=== PATIENT | female | born 1935 | race Caucasian/White ===

== ENCOUNTER → 2017-05-01 | Outpatient (CLI) | payer OTHER, BC ==
[~2017-05-01] MED LIST: ALLO100T PO; ATOR10TA82 PO; FURO-85 PO; LISI-725 PO; METO50TA16 PO; OXGN; POTA8CAP6 PO
[2017-05-01 12:19] LABS: BASO % 0.3 %; BASO ABS # 0.03 K/uL (0-0.2); EOS % 2.2 %; HEMATOCRIT 38.8 % (37-47); IG% 0.1 %; LYMPH % 43.5 %; LYMPH ABS # 3.82 K/uL (1.2-3.4); MEAN CELL VOLUME 95.1 fL (80-100); MEAN CORPUSCULAR HEMOGLOBIN 30.9 pg (25-34); MEAN CORPUSCULAR HGB CONC 32.5 g/dl (32-36); MEAN PLATELET VOLUME 11.1 fL (7.4-10.4); MONO % 6.7 %; NEUT % 47.2 %; PLATELET COUNT 213 K/uL (130-400); RED BLOOD COUNT 4.08 M/uL (4.2-5.4); WHITE BLOOD COUNT 8.79 K/uL (4.8-10.8)
[2017-05-01 12:40] LABS: ESTIMATED AVERAGE GLUCOSE 123 mg/dl; HA1C FLAG Normal (Normal)
[2017-05-01 12:43] LABS: COMPLETE YES
[2017-05-01 13:16] LABS: ALB/GLOB RATIO 0.9 (0.9-2); ALKALINE PHOSPHATASE 80 U/L (45-117); ALT/SGPT 21 U/L (12-78); AST/SGOT 17 U/L (15-37); BLOOD UREA NITROGEN 23 mg/dl (7-18); BUN/CREATININE RATIO 20.5 (10-20); CALCIUM 8.9 mg/dl (8.5-10.1); CARBON DIOXIDE 28 mmol/L (21-32); CHLORIDE 108 mmol/L (98-107); GLUCOSE 112 mg/dl (70-99); HDL CHOLESTEROL 40 mg/dl; POTASSIUM 4.4 mmol/L (3.5-5.1); SODIUM 145 mmol/L (136-145)
[2017-05-01 13:17] LABS: CHOLESTEROL 119 mg/dl (0-200); LDL CHOLESTEROL CALCULATED 52 mg/dl; TRIGLYCERIDES 136 mg/dl (0-150); URIC ACID 6.4 mg/dl (2.6-7.2); VERY LOW DENSITY LIPOPROT CALC 27 mg/dl
== END | disposition home or self-care (01) ==
LOC: C.LABBFT 08:36
PROVIDERS: ATTEND Internal Medicine
DX: M10.00 Idiopathic gout, unspecified site (principal); R73.01 Impaired fasting glucose; E78.00 Pure hypercholesterolemia, unspecified

== ENCOUNTER → 2017-10-28 | Outpatient (CLI) | payer OTHER, BC ==
--- NOTE | 2017-10-28 18:31 | DIAGNOSTIC IMAGING REPORT ---
VENOUS DOPP LOWER EXT UNILAT CLINICAL HISTORY: M79.669 Lower leg painPLEASE R/O DVT RIGHT LOWER EXTREMITY E X0D pain. Edema. TECHNIQUE: Venous Doppler COMPARISON STUDY: None FINDINGS: Normal study IMPRESSION: Normal study The above report was generated using voice recognition software. It may contain grammatical, syntax or spelling errors. Electronically signed by: Jake Parker M.D. 10/28/2017 6:29 PM Dictated Date/Time: 10/28/2017 6:29 PM
[2017-10-28 19:23] LABS: ALT/SGPT 25 U/L (12-78); AST/SGOT 18 U/L (15-37); BLOOD UREA NITROGEN 20 mg/dl (7-18); BUN/CREATININE RATIO 17.4 (10-20); CALCIUM 9.2 mg/dl (8.5-10.1); CARBON DIOXIDE 30 mmol/L (21-32); CHLORIDE 104 mmol/L (98-107); CREATININE 1.16 mg/dl (0.60-1.20); GLUCOSE 100 mg/dl (70-99); SODIUM 138 mmol/L (136-145)
[2017-10-28 19:25] LABS: ALB/GLOB RATIO 0.8 (0.9-2); ALKALINE PHOSPHATASE 90 U/L (45-117); CHOLESTEROL 125 mg/dl (0-200); CHOLESTEROL/HDL RATIO 2.7; HDL CHOLESTEROL 46 mg/dl; LDL CHOLESTEROL CALCULATED 49 mg/dl; TRIGLYCERIDES 150 mg/dl (0-150); VERY LOW DENSITY LIPOPROT CALC 30 mg/dl
[2017-10-29 06:48] LABS: ESTIMATED AVERAGE GLUCOSE 120 mg/dl; HA1C FLAG Normal (Normal)
== END | disposition home or self-care (01) ==
LOC: C.ULTR 18:03
PROVIDERS: ATTEND Nurse Practitioner
DX: M79.669 Pain in unspecified lower leg (principal); E78.00 Pure hypercholesterolemia, unspecified; R73.01 Impaired fasting glucose

== ENCOUNTER → 2017-12-22 | Outpatient (CLI) | payer OTHER, BC ==
[~2017-12-22] MED LIST changes: +TRIA37.5 PO
== END | disposition home or self-care (01) ==
LOC: C.PAPS 12:49
PROVIDERS: ATTEND Nurse Practitioner
DX: N95.0 Postmenopausal bleeding (principal)

== ENCOUNTER → 2017-12-22 | Outpatient (CLI) | payer OTHER, BC ==
[~2017-12-22] MED LIST changes: -TRIA37.5 PO
== END | disposition home or self-care (01) ==
LOC: C.LABBFT 10:50
PROVIDERS: ATTEND Internal Medicine
DX: R39.9 Unspecified symptoms and signs involving the genitourinary system (principal)

== ENCOUNTER → 2017-12-24 | Outpatient (CLI) | payer OTHER, BC | END | disposition home or self-care (01) | LOC: C.PATHSPEC 15:59 | PROVIDERS: ATTEND Obstetrics & Gynecology | DX: N95.0 Postmenopausal bleeding (principal); R89.7 Abnormal histological findings in specimens from other organs, systems and tissues ==

== ENCOUNTER → 2017-12-24 | Outpatient (CLI) | payer OTHER, BC ==
[2017-12-24 13:11] LABS: BASO % 0.5 %; BASO ABS # 0.05 K/uL (0-0.2); EOS % 1.7 %; EOS ABS # 0.18 K/uL (0-0.5); HEMATOCRIT 38.1 % (37-47); HEMOGLOBIN 12.4 g/dL (12.0-16.0); IG# 0.03 K/uL (0.00-0.02); LYMPH % 32.2 %; LYMPH ABS # 3.45 K/uL (1.2-3.4); MEAN CELL VOLUME 96.2 fL (80-100); MEAN CORPUSCULAR HEMOGLOBIN 31.3 pg (25-34); MEAN CORPUSCULAR HGB CONC 32.5 g/dl (32-36); MEAN PLATELET VOLUME 11.1 fL (7.4-10.4); MONO % 4.7 %; NEUT % 60.6 %; NEUT ABS # 6.52 K/uL (1.4-6.5); PLATELET COUNT 233 K/uL (130-400); RED CELL DISTRIBUTION WIDTH CV 13.9 % (11.5-14.5); RED CELL DISTRIBUTION WIDTH SD 48.1 fL (36.4-46.3); WHITE BLOOD COUNT 10.73 K/uL (4.8-10.8)
== END | disposition home or self-care (01) ==
LOC: C.LABBFT 08:56
PROVIDERS: ATTEND Nurse Practitioner
DX: N95.0 Postmenopausal bleeding (principal)

== ENCOUNTER → 2017-12-31 | Outpatient (CLI) | payer OTHER, BC ==
[~2017-12-31] MED LIST changes: +TRIA37.5 PO
--- NOTE | 2017-12-31 11:38 | DIAGNOSTIC IMAGING REPORT ---
EXAMINATION: PELVIC ULTRASOUND CLINICAL HISTORY: N95.0 Postmenopausal vaginal [id number] COMPARISON STUDY: None FINDINGS: The uterus measured 5.3 x 4.1 x 7.3 cm.. Multiple complex nabothian gland cysts were visualized. The endometrial stripe measured was thickened measuring 2.5 cm.. Neither ovary was visualized. There was no evidence of pathologic free pelvic fluid. Endovaginal imaging was limited due to patient discomfort. IMPRESSION: 1. Abnormally thickened endometrium measuring 2.5 cm 2. Nonvisualization of the ovaries Electronically signed by: Jasiel Estes M.D. 12/31/2017 11:37 AM Dictated Date/Time: 12/31/2017 11:35 AM
--- NOTE | 2018-01-05 10:10 | DIAGNOSTIC IMAGING REPORT ---
EXAMINATION: PELVIC ULTRASOUND CLINICAL HISTORY: N95.0 Postmenopausal vaginal [id number] COMPARISON STUDY: None FINDINGS: The uterus measured 5.3 x 4.1 x 7.3 cm.. Multiple complex nabothian gland cysts were visualized. The endometrial stripe measured was thickened measuring 2.5 cm.. Neither ovary was visualized. There was no evidence of pathologic free pelvic fluid. Endovaginal imaging was limited due to patient discomfort. IMPRESSION: 1. Abnormally thickened endometrium measuring 2.5 cm 2. Nonvisualization of the ovaries Electronically signed by: Jasiel Estes M.D. 12/31/2017 11:37 AM Dictated Date/Time: 12/31/2017 11:35 AM
== END | disposition home or self-care (01) ==
LOC: C.ULTR 10:57
PROVIDERS: ATTEND Nurse Practitioner
DX: N95.0 Postmenopausal bleeding (principal); R93.8 Abnormal findings on diagnostic imaging of other specified body structures

== ENCOUNTER → 2018-01-12 | Outpatient (CLI) | payer OTHER, BC ==
[~2018-01-12] MED LIST changes: -OXGN
--- NOTE | 2018-01-12 12:05 | DIAGNOSTIC IMAGING REPORT ---
CHEST 2 VIEWS ROUTINE CLINICAL HISTORY: PRE OP COMPARISON STUDY: 08/23/2016 FINDINGS: The heart is mildly enlarged. There is no failure. There is no focal pulmonary consolidation. There are no pleural effusions.[ IMPRESSION: Mild cardiomegaly. No acute findings Electronically signed by: Jasiel Estes M.D. 01/12/2018 12:04 PM Dictated Date/Time: 01/12/2018 12:03 PM
== END | disposition home or self-care (01) ==
LOC: C.RAD1850 11:43
PROVIDERS: ATTEND Obstetrics & Gynecology
DX: Z01.818 Encounter for other preprocedural examination (principal)

== ENCOUNTER → 2018-01-21 | Day surgery (SDC) | payer OTHER, BC ==
[2018-01-06 10:01] VITALS: Ht 162.6 cm; Wt 95.5 kg
--- NOTE | 2018-01-15 13:25 | PAT Medication Instructions ---
Service Date Jan 15, 2018. Current Home Medication List Allopurinol (Zyloprim), 100 MG PO QAM Atorvastatin (Lipitor), 10 MG PO QPM Furosemide (Lasix), 0.5 TAB PO DAILY PRN for FLUID RETENTION Lisinopril (Zestril), 20 MG PO QAM Metoprolol Tartrate (Lopressor) (Lopressor), 50 MG PO BID Potassium Chloride (Klor-Con Ext Rel), 8 MEQ PO QAM Triamterene/Hctz (Dyazide 37.5MG/25MG), 1 TAB PO QAM Medication Instructions For Your Scheduled Surgery - Hold the following medications the morning of surgery: Furosemide (Lasix), 0.5 TAB PO DAILY PRN for FLUID RETENTION Lisinopril (Zestril), 20 MG PO QAM Potassium Chloride (Klor-Con Ext Rel), 8 MEQ PO QAM Triamterene/Hctz (Dyazide 37.5MG/25MG), 1 TAB PO QAM - Take the following medications the morning of surgery with a sip of water: Metoprolol Tartrate (Lopressor) (Lopressor), 50 MG PO BID Allopurinol (Zyloprim), 100 MG PO QAM - Take the following medications as scheduled the night before surgery: Metoprolol Tartrate (Lopressor) (Lopressor), 50 MG PO BID Furosemide (Lasix), 0.5 TAB PO DAILY PRN for FLUID RETENTION (if needed) Atorvastatin (Lipitor), 10 MG PO QPM If you have any questions please call us at [phone] or [phone] or [phone]
[2018-01-15 15:32] LABS: CREATININE 1.06 mg/dl (0.60-1.20)
--- NOTE | 2018-01-19 08:56 | HISTORY & PHYSICAL EXAMINATION ---
DATE OF ADMISSION: 01/21/2018 CHIEF COMPLAINT: Postmenopausal bleeding. HISTORY OF PRESENT ILLNESS: The patient is an 82-year-old white female, para 3, who has been having bleeding on and off since 12/21/2017. She also reports some pelvic cramping. Pap smear done on 12/22/2017 was negative. The patient was menopausal at age 41. She had an ultrasound done, which showed a thick endometrial lining of 25 mm. Ovaries could not be visualized. An endometrial biopsy was attempted, but the pipelle could only be inserted 3-4 cm. What tissue that was obtained showed an atypical endometrial proliferation and there is a question of possible high-grade endometrial carcinoma. The patient is now for hysteroscopy and D&C. PAST MEDICAL HISTORY: ALLERGIES: No known drug allergies. MEDICATIONS: The patient takes allopurinol 100 mg 1 tablet daily, atorvastatin 10 mg daily, furosemide 20 mg tablet she is to take 1/2 tablet daily as needed for edema, Klor-Con 8 mEq extended release every other day, lisinopril 20 mg daily, metoprolol 50 mg 1 tablet twice a day, and triamterene/HCTZ 37.5/25 mg 1 capsule daily. ILLNESSES: The patient has a history of atypical chest pain, although has been recently evaluated and felt stable for the procedure. She has a history of esophageal reflux, hypercholesterolemia, hypertension, mitral regurgitation, nephrolithiasis and lichen sclerosus. PAST SURGICAL HISTORY: She has undergone a recent laparoscopic cholecystectomy. She also has a history of tubal ligation and kidney surgery. FAMILY HISTORY: She reports that her mother had cervical cancer. Her father had tetanus. Her brother had coronary artery disease. In addition, there is a family history of breast cancer. SOCIAL HISTORY: The patient is . She was never a smoker. She denies using alcohol. PHYSICAL EXAMINATION: VITAL SIGNS: Height 5 feet 1-1/4 inches, weight 210 pounds, giving her a BMI of 39.45. Blood pressure 130/68. HEENT: Grossly within normal limits. NECK: Supple without masses. HEART: Regular rate and rhythm. No murmurs, gallops or rubs audible. CHEST: Her lungs are clear. No wheezing. ABDOMEN: Soft and nontender with no abdominal masses and no hepatosplenomegaly. PELVIC: External genitalia, there was a rash in the right inguinal area. Labia were normal. Bartholin glands were normal. The vagina was pink and smooth. There was some moderate vaginal bleeding present. The cervix appeared normal. Uterus was hard to evaluate due to the patient's habitus. EXTREMITIES: No cyanosis, clubbing or edema. IMPRESSION: An 82-year-old white female with post-menopausal bleeding. Abnormal ultrasound, showing endometrial thickening of 25 mm. Endometrial biopsy concerning for possible carcinoma. PLAN: The patient is for hysteroscopy, dilation of the cervix and curettage with possible removal of polyp/lesion. The patient is aware of the risks of infection, bleeding, perforation of the uterus which could require additional surgery or treatment, hospitalization and risk of anesthesia. She is aware of the option of doing nothing, which is not recommended. The patient wishes to proceed with the above procedure. MARY JO
[~2018-01-21] VITALS: Ht 162.6 cm; Wt 95.5 kg
[~2018-01-21] MED LIST changes: +ACETAMINOPHEN 325 MG TAB PO PRN; +ATROPINE SULFATE 0.1 MG/ML 5ML SYR IV PRN; +DEXAMETHASONE SOD INJ 4 MG/ML VIAL ONE; +FENTANYL CITRATE INJ 50 MCG/1 ML 2 ML VIAL IV PRN; +FENTANYL CITRATE INJ 50 MCG/1 ML 2 ML VIAL ONE; +IBUPROFEN 600 MG TAB PO PRN; +KETOROLAC TROMETHAMINE 30 MG/ML VIAL IV. PRN; +LABETALOL HCL IV 5 MG/ML 20ML IV PRN; +LACTATED RINGER'S 1000ML 1,000 ML IV SCH; +LIDOCAINE HCL 2% 2 ML VIAL (20MG/ML) ONE; +MIDAZOLAM HCL 1 MG/ML 2ML VIAL ONE; +ONDANSETRON INJ 2 MG/ML 2 ML VIAL IV PRN; +ONDANSETRON INJ 2 MG/ML 2 ML VIAL ONE; +PROPOFOL IV EMULSION 10 MG/ML 20 ML VIAL IV ONE; +SODIUM CHLORIDE 0.9% 1000ML 1,000 ML IV SCH
--- NOTE | 2018-01-21 07:38 | History & Physical Bridge - SC ---
H&P Re-Evaluation Bridge Note: I have examined the patient, reviewed the History & Physical and in the interval since the performance of the History & Physical I have noted the following changes of clinical significance: No changes noted
--- NOTE | 2018-01-21 12:41 | [facility] Post Operative Brief Note ---
Immediate Operative Summary Operative Date Jan 21, 2018. Pre-Operative Diagnosis Post menopausal vaginal bleeding Post-Operative Diagnosis Same Procedure(s) Performed Dilatation And Curettage, Hysteroscopy, Removal of Endometrial Mass Surgeon Dr. Dodson Electric Milkers Installer Surgeon(s) None Estimated Blood Loss 25ml Findings Consistent with Post-Op Diagnosis Specimens A. Endocervical Curettings B. Endometrial Curettings C. Endometrial Mass Anesthesia Type General Complication(s) none Disposition Accompanied Pt To Recovery: yes Disposition: Recovery Room / PACU
--- NOTE | 2018-01-21 12:51 | Discharge Instructions-SurgCtr ---
Discharge Instructions Date of Service Jan 21, 2018. Visit Reason for Visit: Post Menopausal Vaginal Bleeding Discharge Discharge Diagnosis / Problem: S/P Hysteroscopy, D&C, removal of endometrial mass Discharge Goals Goal(s): Diagnostic testing, Therapeutic intervention Activity Recommendations Activity Limitations: resume your previous activity ACTIVITY RECOMMENDATIONS: * Avoid tampons, douching, hot tubs, pools, and intercourse until bleeding has stopped. * May shower as usual. * No strenuous activity for 24-48 hours. After 24-48 hours, you may do anything you feel like doing (driving and sports are okay). SPECIAL CARE INSTRUCTIONS: Special Diet: * Mild nausea may occur in the immediate post-operative period. * Take clear liquids such as tea, cola or bouillon until all nausea has subsided; you may then resume your normal diet. Special Care: * Light bleeding and vaginal spotting can last from a few days to 3-4 weeks. Call your doctor if bleeding becomes heavier than the heaviest part of your period. * Check your temperature twice a day for one week. If it goes above 100.4 degrees Fahrenheit (38.0 Celsius), notify your doctor. * Call your doctor's office for an appointment for 2-4 weeks after your surgery. Call if you develop a foul smelling vaginal discharge or severe cramping. [phone] FOLLOW-UP VISIT: Call your doctor's office for an appointment for 2-4 weeks after your surgery. [phone] Dr Dodson Anesthesia . Post Anesthesia Instructions: If you have had General Anesthesia or IV Sedation: * Do not drive today. * Resume driving when surgeon permits. * Do not make important decisions or sign legal documents today. * Call surgeon for: 1. Temperature elevations greater than 101 degrees F. 2. Uncontrollable pain. 3. Excessive bleeding. 4. Persistent nausea and vomiting. 5. Medication intolerance (nausea, vomiting or rash). * For nausea and vomiting use only clear liquids such as: tea, soda, bouillon until nausea subsides, then gradually increase diet as tolerated. * If you have any concerns or questions, call your surgeon's office. If physician is unavailable and it is an emergency, call 911 or go to the nearest emergency room. . Diet Recommendations Home Diet: resume previous diet Procedures Procedures Performed: Dilatation And Curettage, Hysteroscopy, Removal of Endometrial Mass Pending Studies Studies pending at discharge: yes List of pending studies: The tissue removed from the uterus will be sent to pathology. We will call you with the report sometime in the next few days or week. Medical Emergencies . Who to Call and When: Medical Emergencies: If at any time you feel your situation is an emergency, please call 911 immediately. . Non-Emergent Contact Non-Emergency issues call your: Filbert Grower Call Non-Emergent contact if: temperature is above 100.5, your pain is worsening . . "Provider Documentation" section prepared by Judy Dodson. .
[2018-01-21 13:58] VITALS: BP 149/74; PULSE 63; O2SAT 95
--- NOTE | 2018-01-21 13:58 | Anesthesia Progress Nt - [facility] ---
Anesthesia Post Op Note Date & Time Jan 21, 2018 at 13:58 Vital Signs Pain Intensity: 3 Vital Signs Past 12 Hours Date Time Temp Pulse Resp B/P (MAP) Pulse Ox O2 Delivery O2 Flow Rate FiO2 01/21/18 13:39 36.6 66 20 143/75 (97) 95 Room Air 01/21/18 13:32 36.6 62 20 127/67 (67) 95 Room Air Mask 01/21/18 13:27 63 19 01/21/18 13:27 64 19 150/64 94 01/21/18 13:22 68 16 137/53 95 01/21/18 13:22 67 16 01/21/18 13:17 60 14 01/21/18 13:17 59 14 99 01/21/18 13:16 155/73 01/21/18 13:12 65 12 01/21/18 13:12 66 12 99 01/21/18 13:11 61 9 144/68 99 01/21/18 13:11 62 9 01/21/18 13:06 60 8 01/21/18 13:06 60 8 148/66 99 01/21/18 13:01 64 10 01/21/18 13:01 63 10 148/68 99 01/21/18 12:56 60 11 146/77 98 01/21/18 12:56 59 11 01/21/18 12:51 59 11 01/21/18 12:51 58 11 140/62 98 01/21/18 12:47 131/60 01/21/18 12:46 36.4 62 16 131/60 98 Mask 8 01/21/18 10:57 36.5 76 20 180/91 (120) 97 Room Air Notes Mental Status: alert / awake / arousable, participated in evaluation Pt Amnestic to Procedure: Yes Nausea / Vomiting: adequately controlled Pain: adequately controlled Airway Patency, RR, SpO2: stable & adequate BP & HR: stable & adequate Hydration State: stable & adequate Anesthetic Complications: no major complications apparent
--- NOTE | 2018-01-21 14:38 | OPERATIVE REPORT ---
DATE OF OPERATION: 01/21/2018 PREOPERATIVE DIAGNOSIS: Postmenopausal vaginal bleeding. PROCEDURE: Hysteroscopy, D&C, and removal of endometrial mass. SURGEON: Judy Dodson MD ANESTHESIA: General. RESEARCH NUTRITIONIST: Tristian Hilario MD DESCRIPTION OF PROCEDURE: The patient was taken to the operating room where general anesthesia was administered. After an adequate level was obtained, she was placed in dorsal lithotomy position. Vulva, vagina, and cervix were prepped with Betadine solution. The patient was draped. The bladder was drained with a straight catheter. 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 The diverticulum is approximately 1-2 cm in size. An Allis clamp was then used to grasp the anterior lip of the cervix. Endocervical curettings were obtained. There was tissue within these curettings. The uterus sounded to 9.5 cm. The cervix was serially dilated up to a #15. Hysteroscope was introduced into the endometrial cavity. There were multiple whitish masses. Photos were taken. Hysteroscope was removed. Polyp forceps was used to remove some of this soft whitish tissue. In addition, a much larger piece of pink and purplish red tissue was removed and this was sent separately to Pathology. The endometrial cavity was then curetted with a serrated curette. A [id number] amount of tissue was obtained. Hysteroscope was used once more to visualize the endometrial cavity and most of the tissue within the cavity had been removed. Polyp forceps was used once more and some additional small bits of tissue obtained. Endometrial curettings were sent to Pathology. At this point, the procedure was ended. Estimated blood loss 25 mL. The patient tolerated the procedure well and was taken to the recovery room in good condition. It should be noted that bimanual exam prior to the procedure revealed an anterior top normal size uterus. There were no adnexal masses. I attest to the content of the Intraoperative Record and any orders documented therein. Any exceptions are noted below. MTDD
== END | disposition home or self-care (01) ==
LOC: X.SURG 10:44
PROVIDERS: ATTEND Obstetrics & Gynecology
DX: N95.0 Postmenopausal bleeding (principal); N72 Inflammatory disease of cervix uteri; N84.0 Polyp of corpus uteri; I10 Essential (primary) hypertension; E78.00 Pure hypercholesterolemia, unspecified; Z98.890 Other specified postprocedural states; E66.9 Obesity, unspecified; Z68.39 Body mass index [BMI] 39.0-39.9, adult; Z98.51 Tubal ligation status; Z79.899 Other long term (current) drug therapy; M19.90 Unspecified osteoarthritis, unspecified site; Z87.2 Personal history of diseases of the skin and subcutaneous tissue; Z90.49 Acquired absence of other specified parts of digestive tract; Z82.49 Family history of ischemic heart disease and other diseases of the circulatory system; Z80.49 Family history of malignant neoplasm of other genital organs

== ENCOUNTER 2020-01-29 23:10 | Inpatient (IN) ==
[2020-01-29] MEDS ORDERED: dilTIAZem HCl 5 MG/ML 5 ML VIAL IV ONE (23:24)
[2020-01-29] MEDS ORDERED: ASPIRIN CHEW 324 MG PO STA (23:25)
[2020-01-29] MEDS ORDERED: dilTIAZem HCl 5 MG/ML 5 ML VIAL IV STA (23:25)
[2020-01-29] MEDS ORDERED: STAT IV Infusion **Titration per Protocol STA (23:26)
[2020-01-29] MEDS ORDERED: dilTIAZem HCL 125 MG in DEXTROSE 5% 100 ML IV SCH (23:30)
[2020-01-29] MEDS ORDERED: SODIUM CHLORIDE 0.9% 500 ML IV SCH (23:30)
[2020-01-29 23:42] LABS: Hemoglobin 12.3 g/dL (12.0-16.0); Mean Corpuscular Hemoglobin 30.2 pg (25-34); Mean Corpuscular Hgb Conc 31.5 g/dL (32-36); Mean Corpuscular Volume 95.8 fL (80-100); Mean Platelet Volume 10.5 fL (7.4-10.4); Platelet Count 220 K/uL (130-400); RDW Coefficient of Variation 15.8 % (11.5-14.5); RDW Standard Deviation 55.1 fL (36.4-46.3); Red Blood Count 4.07 M/uL (4.2-5.4); White Blood Count 11.82 K/uL (4.8-10.8)
[2020-01-29 23:51] LABS: iSTAT Creatinine 1.2 mg/dl (0.6-1.3); iSTAT Hemoglobin 12.6 g/dl (12.0-16.0); iSTAT Ionized Calcium 1.23 mmol/l (1.12-1.32); iSTAT Potassium 3.8 mmol/L (3.3-5.0)
--- NOTE | 2020-01-29 23:51 | History & Physical Report ---
Date of Service January 29, 2020 Assessment & Plan (1) Atrial fibrillation with RVR: Ms. Aaliyah Leiva is a generally healthy 84 year old woman with a past medical history significant for HTN, HLD, and gout who is here today for new onset atrial fibrillation Atrial fibrillation new onset at around 10 pm tonight, converted spontaneously in emergency department CHADSVASC of 4 or 5, will start on anticoagulation for paroxysmal atrial fibrillation Eliquis 2.5 mg BID which is also what her is taking for his a fib Already on metoprolol, will increase from 50 to 100 mg BID from 50 to try to get better rate control, patient tachycardic in sinus rhythm and hypertensive, will need to make sure she can tolerate the higher dose of metoprolol during admission Discussed disease and pros cons of these medications at length with patient and her . TTE ordered for am, patient may also have component of CHF based on enlarged heart size on imaging, and chronic lower limb swelling TSH ordered for am Initial troponin negative, will get another one in six hours If patient goes into RVR again tonight we will attempt to use IV metoprolol pushes HTN Increased metoprolol to 100 mg BID. will also continue triamterene HCTZ and lisinopril 20 mg Currently hypertensive 179/ 71and heart rate around 100 Advised on symptoms of hypotension HLD Continuing atorvastatin 10 mg daily Gout Continuing allopurinol Dispo: Admit to telemetry on increased dose of beta shara and eliquis for ant icoagulation with continuous cardiac monitoring F/E/N: Heart healthy diet DVT PPx: Eliquis (2) Impaired fasting glucose: (3) Hyperlipidemia: (4) Hypertension: History of Present Illness Chief Complaint: Atrial Fibrillation Primary Care Provider: Scott Kessler MD Aaliyah Leiva is an 84 year old woman with a past medical history significant for HTN, HLD, and gout. She is here today for heart palpitations and some associated mild shortness of breath. This started around 10 pm tonight, and felt like her heart was booming and racing. She has never had anything like this in the past. She was recently ill with back to back URI illnesses starting in November, but has completely recovered from those other than being a little quicker to tire since being sick. No shortness of breath, no cough, no chest pain, no nausea, vomiting, abdominal pain, diaphoresis, syncope or presyncope. She presented to the emergency department where she was found to be in atrial fibrillation with a rate as high as 147, Her blood pressure remained hypertensive throughout. Troponin negative EKG not showing any acute ST segment changes. CXR showing enlarged heart CTA showing no pulmonary emboli. Patient converted to sinus rhythm in ED before receiving any medical therapy. Her rates have been around 100 bpm in sinus rhythm. She denies shortness of breath at this time. Allergies Allergy/AdvReac Type Severity Reaction Status Date / Time No Known Allergies Allergy Verified 01/29/20 23:44 Home Medications Home Medications Medication Instructions Recorded Confirmed Type metoprolol tartrate 50 mg tablet 50 mg PO BID #180 tab 08/16/19 01/29/20 Rx triamterene 37.5 1 cap PO DAILY #90 cap 10/25/19 01/29/20 Rx mg-hydrochlorothiazide 25 mg capsule atorvastatin 10 mg tablet 10 mg PO DAILY #90 tab 11/02/19 01/29/20 Rx lisinopril 20 mg tablet 20 mg PO DAILY #90 tab 11/02/19 01/29/20 Rx cyanocobalamin (vitamin B-12) 1,000 mcg PO DAILY tab 11/21/19 01/29/20 History 1,000 mcg tablet potassium chloride 8 mEq 8 meq PO DAILY #30 tab 12/13/19 01/29/20 Rx tablet,extended release allopurinol 100 mg tablet 100 mg PO DAILY #30 tab 01/19/20 01/29/20 Rx ergocalciferol (vitamin D2) 50,000 units PO WK 01/29/20 01/29/20 History fluticasone propionate [Flonase 2 sprays INTNAS DAILY PRN 01/29/20 01/29/20 History Allergy Relief] furosemide 10 mg PO DAILY PRN 01/29/20 01/29/20 History Past Med/Surg History Medical History Cyst of breast Lichen sclerosus et atrophicus Nephrolithiasis Surgical History H/O colonoscopy History of kidney surgery S/P cholecystectomy S/P tubal ligation Family History Aunt Breast cancer maternal Grandmother (Maternal) Breast cancer Mother Cervical cancer Varicose veins of both lower extremities Brother Coronary heart disease Father Tetanus Denies family history of Ovarian cancer Prostate cancer Colorectal cancer Social History Preferred Language: Kinyarwanda Communication Ability: Effective Hearing Ability: Normal Brass Sorter Required: No Beliefs That Will Affect Care: None marital status: Current Living Situation: Spouse current occupational status: retired Other Information That Helps Us Care for You: No Feels Safe at Home: Yes Safety Concerns: Feels Safe At This Time Smoking Status: Never smoker Hx Alcohol Use: No Hx Substance Use: No Physical Activity Frequency: Does not Exercise Seatbelt Use: always Sunscreen Use: Yes Review of Systems Constitutional: no fever, no chills and no body aches Eyes: no problem reported Ear, Nose, Mouth, Throat: no problem reported Respiratory: + dyspnea on exertion; no cough, no dyspnea and no wheezing Cardiovascular: + palpitations; no chest pain, no dyspnea, no lightheadedness, no syncope and no calf pain Gastrointestinal: no abdominal pain, no nausea, no vomiting, no constipation, no diarrhea/loose stools, no blood in stools and no melena Physical Exam Constitutional: well developed and well nourished; no acute distress and not ill appearing Eyes: PERRL, conjunctivae normal, anicteric sclerae ENMT: external ear and nose normal, oropharynx normal Neck: trachea midline, no thyromegaly Respiratory: normal respiratory effort, lungs clear to auscultation Auscultation: no crackles, no rales, no rhonchi and no wheezes Cardiovascular: Rate/Rhythm: regular rate and regular rhythm Heart Sounds: normal S1 and normal S2; no murmur and no cardiac rub Vessels: normal peripheral pulses Extremities: + pedal edema; no calf tenderness Gastrointestinal (Abdomen): normal bowel sounds, soft, nontender, no hepatosplenomegaly Skin: no rashes, warm and dry Results & Data Vital Signs (Past 12 Hours) Vital Signs Temp Pulse Resp BP Pulse Ox 01/29/20 23:15 36.5 C 147 H 18 161/81 H 96 Supervising Physician Co-Signing Physician Notes Patient seen and examined, chart reviewed, case discussed with Dr. Bazan and I agree with his assessment and plan as documented above. Briefly, patient is a pleasant 84yo C female presenting with AF with RVR. Converted to NSR after IV Diltiazem administered in ER. No history of prior arrhythmia. No CP/SOB or evidence of failure. On exam she is afebrile, HTN, ST on monitor at 100bpm, NAD Skin - intact HEENT - NC/AT, PERRL, EOMI, MMM, No JVD Heart - +S1/S2, regular, no m/r/g Lungs - CTA Abd - +BS, soft NT/ND Ext - chronic edema equal bilaterally Labs and images reviewed Assessment/Plan - 84yo C female with history of HTN/HLP presenting with AF with RVR, converted to NSR after IV Diltiazem -Electrolytes WNL, awaiting TSH and 2D echo -Increase PO Metoprolol as above -Eliquis for anticoagulation -Remainder of plan as above Resident Activity Tracking Resident Involvement: Resident Care Provided Care Provided: Adult Hospital Medicine
[2020-01-29 23:59] LABS: INR 1.1 (0.9-1.1); Partial Thromboplastin Ratio 0.9; Partial Thromboplastin Time 24.8 Seconds (21.0-31.0); Prothrombin Time 11.4 Seconds (9.0-12.0)
[2020-01-29] MEDS ORDERED: OPTIRAY 320 125ml IV PRN (23:59)
[2020-01-30] LABS: BUN Creatinine Ratio 18.2 (10-20); Blood Urea Nitrogen 22 mg/dl (7-18); Calcium 9.5 mg/dl (8.5-10.1); Carbon Dioxide 27 mmol/L (21-32); Chloride 107 mmol/L (98-107); Creatinine Clr Calc Pharmacy 39.6 ml/min; Est GFR (African American) 48.9; Est GFR (Non-African American) 42.2; Glucose 126 mg/dl (70-99); Lipase 204 U/L (73-393); Magnesium 1.9 mg/dl (1.8-2.4); Potassium 3.8 mmol/L (3.5-5.1); Sodium 141 mmol/L (136-145)
[2020-01-30 00:05] LABS: Troponin I < 0.015 ng/ml (0-0.045)
[2020-01-30 00:41] LABS: Basophils # (auto) 0.04 K/uL (0-0.2); Basophils % (auto) 0.3 %; Eosinophils # (auto) 0.17 K/uL (0-0.5); Eosinophils % (auto) 1.4 %; Immature Granulocytes # (auto) 0.03 K/uL (0.00-0.02); Immature Granulocytes % (auto) 0.3 %; Lymphocytes % (auto) 42.3 %; Monocytes # (auto) 0.87 K/uL (0.11-0.59); Monocytes % (auto) 7.4 %; Neutrophils # (auto) 5.71 K/uL (1.4-6.5); Neutrophils % (auto) 48.3 %
--- NOTE | 2020-01-30 00:49 | Emergency Department Note ---
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 The patient states that she feels like her heart is racing. She denies any chest pain, fever, chills, or coughing up blood. She denies any recent travel or long car rides. She denies using any hormone pills or creams. The patient reports that she does not take any blood thinners. She mentions that she takes Metoprolol, but did not take it tonight. She denies any history of atrial fibrillation. Per her , the patient was recently treated for influenza and a sinus infection. Home Medications Home Medications Medication Instructions Recorded Confirmed Type metoprolol tartrate 50 mg tablet 50 mg PO BID #180 tab 08/16/19 01/29/20 Rx triamterene 37.5 1 cap PO DAILY #90 cap 10/25/19 01/29/20 Rx mg-hydrochlorothiazide 25 mg capsule atorvastatin 10 mg tablet 10 mg PO DAILY #90 tab 11/02/19 01/29/20 Rx lisinopril 20 mg tablet 20 mg PO DAILY #90 tab 11/02/19 01/29/20 Rx cyanocobalamin (vitamin B-12) 1,000 mcg PO DAILY tab 11/21/19 01/29/20 History 1,000 mcg tablet potassium chloride 8 mEq 8 meq PO DAILY #30 tab 12/13/19 01/29/20 Rx tablet,extended release allopurinol 100 mg tablet 100 mg PO DAILY #30 tab 01/19/20 01/29/20 Rx ergocalciferol (vitamin D2) 50,000 units PO WK 01/29/20 01/29/20 History fluticasone propionate [Flonase 2 sprays INTNAS DAILY PRN 01/29/20 01/29/20 History Allergy Relief] furosemide 10 mg PO DAILY PRN 01/29/20 01/29/20 History Allergies Allergy/AdvReac Type Severity Reaction Status Date / Time No Known Allergies Allergy Verified 01/29/20 23:44 Past Med/Surg History Medical History Cyst of breast Lichen sclerosus et atrophicus Nephrolithiasis Surgical History H/O colonoscopy History of kidney surgery S/P cholecystectomy S/P tubal ligation Family History Aunt Breast cancer maternal Grandmother (Maternal) Breast cancer Mother Cervical cancer Varicose veins of both lower extremities Brother Coronary heart disease Father Tetanus Denies family history of Ovarian cancer Prostate cancer Colorectal cancer Social History Preferred Language: Mongolian Communication Ability: Effective Hearing Ability: Normal marital status: Current Living Situation: Spouse current occupational status: retired Feels Safe at Home: Yes Smoking Status: Never smoker Hx Alcohol Use: No Hx Substance Use: No Physical Activity Frequency: Does not Exercise Seatbelt Use: always Sunscreen Use: Yes Review of Systems See HPI for pertinent positives & negatives. and A total of 10 systems reviewed and were otherwise negative Physical Exam Vital Signs Vital Signs - 24 hr 01/29/20 23:15 01/29/20 23:24 01/29/20 23:30 Temperature 36.5 C Temperature Source Oral Pulse Rate 147 H 153 H 136 H Pulse Rate from SpO2 Sensor 145 H 131 H Respiratory Rate 18 22 20 Respiratory Effort / Characteristics Non-Labored Respiratory Depth Normal Blood Pressure 161/81 H 169/124 H 141/94 H Blood Pressure Mean 107 130 106 Pulse Oximetry 96 96 94 Oxygen Delivery Method Room Air Sepsis Recent Fever Within 48 Hours No Sepsis Action Taken by Nursing No Action Required 01/29/20 23:36 01/30/20 00:00 01/30/20 00:08 Temperature Temperature Source Pulse Rate 97 H Pulse Rate from SpO2 Sensor 97 H Respiratory Rate 20 Respiratory Effort / Characteristics Short of Breath Respiratory Depth Normal Blood Pressure 179/71 H Blood Pressure Mean 101 Pulse Oximetry 94 96 Oxygen Delivery Method Room Air Sepsis Recent Fever Within 48 Hours Sepsis Action Taken by Nursing GENERAL: She is oriented to person, place, and time. She appears well-developed and well-nourished. She does not appear distressed. HENT: Exam performed. Head: Normocephalic and atraumatic. Right Ear: External ear normal. No mastoid tenderness. Left Ear: External ear normal. No mastoid tenderness. Mouth/Throat: The oropharynx is clear and moist. No trismus in the jaw. No dental abscesses or uvula swelling. No oropharyngeal exudate or tonsillar abscesses. EYES: Conjunctivae and EOM are normal. Pupils are equal, round, and reactive to light. Right eye exhibits no discharge. Left eye exhibits no discharge. No scleral icterus. NECK: Normal range of motion. Neck supple. No JVD present. No spinous process tenderness present. No carotid bruit present. No rigidity. No tracheal deviation and normal range of motion present. No Brudzinski's sign and no Kernig's sign noted. CV: Tachycardic rate, irregular rhythm, normal heart sounds and intact distal pulses. There is no peripheral edema. Palpable radial pulses bue. PULM/CHEST: Effort normal and breath sounds normal. No respiratory distress. No stridor. She has no wheezes. She has no rales. Chest Wall: She exhibits no tenderness. ABD: The abdomen is soft. Bowel sounds are normal. She has no distension. No mass is present. There is no tenderness. There is no rebound, no guarding, no Pettit's sign and no tenderness at McBurney's point. Rovsig negative MUSC/SKEL: Normal range of motion. There is no tenderness or deformity. Swelling of right lower extremity. LYMPH: No cervical adenopathy. NEURO: She is alert and oriented to person, place, and time. She has normal strength. No cranial nerve deficit or sensory deficit. Coordination and gait normal. GCS eye subscore is 4. GCS verbal subscore is 5. GCS motor subscore is 6. cerbellar tests wnl. SKIN: Skin is warm and dry. She is not diaphoretic. PSYCH: She has a normal mood and affect. Her behavior is normal. Judgment and thought content normal. Course Course 2323: The patient was evaluated in room A8B, and a complete history and physical examination were performed. She was immediately seen on arrival in the emergency department. He is placed on distribution estimator and IV was established. Patient was found to be in atrial fibrillation with rapid ventricular rate on the monitor. Cardizem bolus of 15 mg was given which improved the patient's ventricular rate. Continuous Cardiac Monitoring: An order was placed for continuous cardiac monitoring. The monitor shows a rate of 170 with atrial fibrillation. 0030: Vital signs stable. The patient converted to sinus rhythm before the Cardizem drip started. Imagining is within normal limits as well as blood work. [facility] I discussed the patient's case with her and she stated that she will start her on Eliquis. She reports that the first dose will be given in the ED by her. Administered Medications Diltiazem HCl 125 mg/ Dextrose 125 mls @ 5 mls/hr IV .Q24H KEN; Protocol Stop: 02/28/20 23:29 Last Titration: 01/30/20 00:07 Dose: 0 mg/hr, 0 mls/hr Documented by: [id number] Cosigned by: [id number] Admin: 01/29/20 23:42 Dose: 5 mg/hr, 5 mls/hr Documented by: [id number] Cosigned by: [id number] Ioversol (Optiray 320 125ml) 92 ml IV ONCE PRN PRN Reason: Interaction Checking Stop: 02/02/20 23:58 Last Admin: 01/30/20 00:00 Dose: 92 ml Documented by: [id number] Discontinued Medications Aspirin (Aspirin) 324 mg PO NOW STA Stop: 01/29/20 23:26 Last Admin: 01/30/20 00:23 Dose: 324 mg Documented by: [id number] Diltiazem HCl (Cardizem) Confirm Administered Dose 25 mg IV .STK-MED ONE Stop: 01/29/20 23:25 Last Admin: 01/30/20 00:24 Dose: Not Given Documented by: [id number] Diltiazem HCl (Cardizem) 15 mg IV NOW STA Stop: 01/29/20 23:26 Last Admin: 01/29/20 23:30 Dose: 15 mg Documented by: [id number] Cosigned by: [id number] Sodium Chloride (Nss) 500 mls @ 999 mls/hr IV .Q31M KEN Stop: 01/30/20 00:00 Last Infusion: 01/30/20 00:26 Dose: 0 mls/hr Documented by: [id number] Admin: 01/29/20 23:43 Dose: 999 mls/hr Documented by: [id number] Critical Care Time Critical Care Time: Yes Total Critical Care Time: 41 I have personally spent 41 minutes of critical care time in the direct management of this patient. This includes bedside care, interpretation of diagnostic studies, and testing, discussion with consultants, patient, and family members, and other required patient management activities. This 41 minutes is in excess of all separately billable procedures. Medical Decision Making Medical Records Attestation: I reviewed the patient's medical records. Home Medications Current Medication List: was personally reviewed by me Laboratory Data Attestation: I reviewed the patient's lab results. Result diagrams: 01/29/20 23:25 01/29/20 23:25 Lab Results 01/29/20 01/29/20 01/29/20 Range/Units 23:25 23:25 23:25 WBC 11.82 H (4.8-10.8) K/uL RBC 4.07 L (4.2-5.4) M/uL Hgb 12.3 (12.0-16.0) g/dL POC Hgb (12.0-16.0) g/dl Hct 39.0 (37-47) % POC Hct (37-47) % MCV 95.8 (80-100) fL MCH 30.2 (25-34) pg MCHC 31.5 L (32-36) g/dL RDW Std Deviation 55.1 H (36.4-46.3) fL RDW Coeff of Toney 15.8 H (11.5-14.5) % Plt Count 220 (130-400) K/uL MPV 10.5 H (7.4-10.4) fL Immature Gran % (Auto) 0.3 % Neut % (Auto) 48.3 % Lymph % (Auto) 42.3 % [place] % (Auto) 7.4 % Eos % (Auto) 1.4 % Baso % (Auto) 0.3 % Immature Gran # (Auto) 0.03 H (0.00-0.02) K/uL Neut # (Auto) 5.71 (1.4-6.5) K/uL Lymph # (Auto) 5.00 H (1.2-3.4) K/uL [place] # (Auto) 0.87 H (0.11-0.59) K/uL Eos # (Auto) 0.17 (0-0.5) K/uL Baso # (Auto) 0.04 (0-0.2) K/uL PT 11.4 (9.0-12.0) Seconds INR 1.1 (0.9-1.1) APTT 24.8 (21.0-31.0) Seconds PTT Ratio 0.9 POC Sodium (135-144) mmol/L Sodium 141 (136-145) mmol/L POC Potassium (3.3-5.0) mmol/L Potassium 3.8 (3.5-5.1) mmol/L POC Chloride (101-112) mmol/L Chloride 107 (98-107) mmol/L Carbon Dioxide 27 (21-32) mmol/L POC Total CO2 (24-31) mEq/l Anion Gap 7.0 (3-11) POC Anion Gap (16-25) mmol/L POC BUN (7-18) mg/dl BUN 22 H (7-18) mg/dl Creatinine 1.19 (0.6-1.2) mg/dl POC Creatinine (0.6-1.3) mg/dl Est Cr Clr Drug Dosing 39.6 ml/min Est GFR ( Amer) 48.9 Est GFR (Non-Af Amer) 42.2 BUN/Creatinine Ratio 18.2 (10-20) Glucose 126 H (70-99) mg/dl POC Glucose (other) (70-99) mg/dl Calcium 9.5 (8.5-10.1) mg/dl POC Ioniz Calcium Keri (1.12-1.32) mmol/l Magnesium 1.9 (1.8-2.4) mg/dl Troponin I < 0.015 (0-0.045) ng/ml Lipase 204 (73-393) U/L 01/29/20 Range/Units 23:38 WBC (4.8-10.8) K/uL RBC (4.2-5.4) M/uL Hgb (12.0-16.0) g/dL POC Hgb 12.6 (12.0-16.0) g/dl Hct (37-47) % POC Hct 37 (37-47) % MCV (80-100) fL MCH (25-34) pg MCHC (32-36) g/dL RDW Std Deviation (36.4-46.3) fL RDW Coeff of Toney (11.5-14.5) % Plt Count (130-400) K/uL MPV (7.4-10.4) fL Immature Gran % (Auto) % Neut % (Auto) % Lymph % (Auto) % [place] % (Auto) % Eos % (Auto) % Baso % (Auto) % Immature Gran # (Auto) (0.00-0.02) K/uL Neut # (Auto) (1.4-6.5) K/uL Lymph # (Auto) (1.2-3.4) K/uL [place] # (Auto) (0.11-0.59) K/uL Eos # (Auto) (0-0.5) K/uL Baso # (Auto) (0-0.2) K/uL PT (9.0-12.0) Seconds INR (0.9-1.1) APTT (21.0-31.0) Seconds PTT Ratio POC Sodium 142 (135-144) mmol/L Sodium (136-145) mmol/L POC Potassium 3.8 (3.3-5.0) mmol/L Potassium (3.5-5.1) mmol/L POC Chloride 104 (101-112) mmol/L Chloride (98-107) mmol/L Carbon Dioxide (21-32) mmol/L POC Total CO2 25 (24-31) mEq/l Anion Gap (3-11) POC Anion Gap 17.0 (16-25) mmol/L POC BUN 22 H (7-18) mg/dl BUN (7-18) mg/dl Creatinine (0.6-1.2) mg/dl POC Creatinine 1.2 (0.6-1.3) mg/dl Est Cr Clr Drug Dosing ml/min Est GFR ( Amer) Est GFR (Non-Af Amer) BUN/Creatinine Ratio (10-20) Glucose (70-99) mg/dl POC Glucose (other) 127 H (70-99) mg/dl Calcium (8.5-10.1) mg/dl POC Ioniz Calcium Keri 1.23 (1.12-1.32) mmol/l Magnesium (1.8-2.4) mg/dl Troponin I (0-0.045) ng/ml Lipase (73-393) U/L Imaging Data Attestation: I personally reviewed and interpreted this imaging study as follows: My Impression: XR Chest Airways clear, cardiomegaly, mild cephalization, no focal infiltrates, adalexis in right middle lobe, no fracture of jose a structures, and no free air. Radiologist's Impression: Radiology results as stated below per my review and the radiologist's interpretation: CTA CHEST Heart is enlarged with a globular configuration. Thoracic aorta appears normal. There is no pulmonary embolism. Thoracic esophagus appears normal. There are areas of airspace opacity in the right middle lobe and in the dependent lungs bilaterally. There are some scattered centrilobular bullous changes. There is no pneumothorax or pleural effusion. Impression: No pulmonary embolism. Radiologist: Meaghan Aguilar MD Study ready at 0003 and initial results transmitted at 0020 ECG Data Attestation: I personally reviewed and interpreted this ECG as follows: Indication: + palpitations Rate (beats per minute): 151 Rhythm: + atrial fibrillation ECG Intervals/blocks: + Normal QRS and + Normal NE ECG ST segments: + T-wave inversions (leads 1 and avl); no ST depression and no ST elevation ECG Findings: + LVH Additional Comments: EKG at 2332 status post 23 mg of Cardizem: Atrial fibrillation, rate of 112, QRS normal limits, QTC normal limits, TWI in leads 1 and avl, lvh, no ST depression, or ST elevation. EKG at 0011: Sinus rhythm, rate of 92, NE interval is at 206, first degree AV block, normal QRS, normal QTC, no ST depression, no ST elevation, and in lvh. Blood Pressure Blood Pressure Findings: Elevated blood pressure Blood Pressure Disposition: further management by hospitalist KRISTY Narrative 2323: The patient was evaluated in room A8B, and a complete history and physical examination were performed. She was immediately seen on arrival in the emergency department. He is placed on distribution estimator and IV was established. Patient was found to be in atrial fibrillation with rapid ventricular rate on the monitor. Cardizem bolus of 15 mg was given which improved the patient's ventricular rate. Continuous Cardiac Monitoring: An order was placed for continuous cardiac monitoring. The monitor shows a rate of 170 with atrial fibrillation. 0030: Vital signs stable. The patient converted to sinus rhythm before the Cardizem drip started. Imagining is within normal limits as well as blood work. The patient was admitted to Dr. Gamb[facility] Hospitalist. I discussed the patient's case with her and she stated that she will start her on Eliquis. She reports that the first dose will be given in the ED by her. Impression & Plan Atrial fibrillation with RVR Discharge Plan Visit Data Chief Complaint: Cardiac Assessment Stated Complaint: HEART RACING, HIGH BP ED Provider: Viraj Palafox Discharge Problem: Atrial fibrillation with RVR Patient Disposition: Being Evaluated by Hospitalist Forms Stand Alone Forms: My [facility] Prescriptions Prescriptions: No Action metoprolol tartrate 50 mg tablet 50 mg PO BID Qty: 180 RF: 3 triamterene-hydrochlorothiazid 37.5-25 mg capsule 1 cap PO DAILY Qty: 90 RF: 3 atorvastatin 10 mg tablet 10 mg PO DAILY Qty: 90 RF: 3 lisinopril 20 mg tablet 20 mg PO DAILY Qty: 90 RF: 3 potassium chloride [Klor-Con 8] 8 mEq tablet extended release 8 meq PO DAILY Qty: 30 RF: 5 allopurinol 100 mg tablet 100 mg PO DAILY Qty: 30 RF: 5 cyanocobalamin (vitamin B-12) 1,000 mcg tablet 1,000 mcg PO DAILY RF: 0 furosemide 20 mg tablet 10 mg PO DAILY PRN (Reason: SOB OR SWELLING) RF: 0 ergocalciferol (vitamin D2) 1,250 mcg (50,000 unit) capsule 50,000 units PO WK RF: 0 fluticasone propionate [Flonase Allergy Relief] 50 mcg/actuation spray,suspension 2 sprays INTNAS DAILY PRN (Reason: Congestion) RF: 0 Referrals Referrals: Scott Kessler III, MD [Primary Care Provider] - The loganibe's documentation has been prepared under my direction and personally reviewed by me in its entirety. I confirm that the note above accurately reflects all work, treatment, procedures, and medical decision making performed by me.
[2020-01-30 00:52] LABS: Influenza A virus by PCR Neg for Influ A (Neg); Influenza B virus by PCR Neg for Influ B (Neg)
[2020-01-30] MEDS ORDERED: POLYETHYLENE (MIRALAX) 17 GM PACK PO PRN (01:32)
[2020-01-30] MEDS ORDERED: FUROSEMIDE 20 MG TAB PO PRN (01:32)
[2020-01-30] MEDS ORDERED: ONDANSETRON INJ 2 MG/ML 2 ML VIAL IV PRN (01:32)
[2020-01-30] MEDS ORDERED: INFLUENZA VACCINE HIGH DOSE 65+ 0.5 ML SYR IM ONE (01:43)
[2020-01-30] MEDS ORDERED: INFLUENZA ADMINISTRATION CHARGE ONE (01:43)
--- NOTE | 2020-01-30 03:19 | Billing Data ---
Date of Service January 30, 2020 Coding Level of Care Code 15018 OBS Care - Level 3
[2020-01-30 06:43] LABS: Basophils # (auto) 0.03 K/uL (0-0.2); Basophils % (auto) 0.3 %; Eosinophils # (auto) 0.12 K/uL (0-0.5); Eosinophils % (auto) 1.2 %; Hematocrit (blood only) 33.7 % (37-47); Hemoglobin 10.5 g/dL (12.0-16.0); Immature Granulocytes # (auto) 0.02 K/uL (0.00-0.02); Immature Granulocytes % (auto) 0.2 %; Lymphocytes # (auto) 3.75 K/uL (1.2-3.4); Mean Corpuscular Hemoglobin 30.2 pg (25-34); Mean Corpuscular Hgb Conc 31.2 g/dL (32-36); Mean Corpuscular Volume 96.8 fL (80-100); Mean Platelet Volume 10.4 fL (7.4-10.4); Monocytes # (auto) 0.51 K/uL (0.11-0.59); Monocytes % (auto) 5.2 %; Neutrophils # (auto) 5.44 K/uL (1.4-6.5); Neutrophils % (auto) 55.1 %; Platelet Count 215 K/uL (130-400); RDW Coefficient of Variation 15.9 % (11.5-14.5); RDW Standard Deviation 55.3 fL (36.4-46.3); Red Blood Count 3.48 M/uL (4.2-5.4); White Blood Count 9.87 K/uL (4.8-10.8)
[2020-01-30 07:27] LABS: BUN Creatinine Ratio 19.6 (10-20); Calcium 9.2 mg/dl (8.5-10.1); Creatinine Clr Calc Pharmacy 43.8 ml/min; Est GFR (African American) 56.9; Est GFR (Non-African American) 49.1; Phosphorus 3.6 mg/dl (2.5-4.9); Potassium 3.9 mmol/L (3.5-5.1)
--- NOTE | 2020-01-30 07:28 | CT Scan Report ---
CHEST CTA for PULMONARY ARTERIES CT DOSE: 564.89 mGy.cm HISTORY: Atypical Chest Pain, eval for PE TECHNIQUE: Multiaxial CT images of the chest were performed following the intravenous administration of contrast to evaluate the pulmonary arteries. Maximal intensity projection images were also obtaine d. A dose lowering technique was utilized adhering to the principles of ALARA. COMPARISON STUDY: None. FINDINGS: Normal caliber thoracic aorta with no evidence for dissection. No filling defects within th e pulmonary arteries to suggest pulmonary embolus. The heart is mildly enlarged. No pleural or perica rdial effusions. No mediastinal or hilar lymphadenopathy. Normal esophagus. Limited views of the uppe r abdomen demonstrate a normal liver and spleen. There is 2.5 cm left thyroid nodule. No fractures wi thin the visualized osseous structures. No pneumothorax. The central airways are patent. Patchy areas of consolidation within the lung bases most pronounced within the lower lobes. A few scattered bulla /cysts are seen within the lungs. There is an 8 mm nodular density within the left upper lobe on imag e 181. IMPRESSION: 1. No evidence for pulmonary embolus. 2. Patchy areas of consolidation within the lung bases most pronounced within the lower lobes. This l ikely represents a pneumonia. 3. There is also an 8 mm nodular density within the left upper lobe which could also be secondary to the pneumonia. However, [address] follow-up recommended to ensure resolution. 4. A 2.5 cm left thyroid nodule. ACT 112: Negative or not required by law. Electronically signed by: Edouard Yen M.D. 01/30/2020 7:27 AM
[2020-01-30 07:45] LABS: Thyroid Stimulating Hormone 2.12 uIu/ml (0.300-4.500); Troponin I 0.046 ng/ml (0-0.045)
--- NOTE | 2020-01-30 07:49 | XRay Report ---
XR chest 1V portable HISTORY: Atypical Chest Pain COMPARISON: Chest 08/23/2016. FINDINGS: No pneumothorax. No pleural effusions. The heart remains enlarged. There is perihilar inter stitial and vascular thickening consistent with mild congestive change. Patchy right base airspace op acity. IMPRESSION: 1. Cardiomegaly with mild congestive change. 2. Patchy right basilar airspace opacity. This could represent a pneumonia. ACT 112: Negative or not required by law. Electronically signed by: Edouard Yen M.D. 01/30/2020 7:48 AM
[2020-01-30] MEDS: CYANOCOBALAMIN 500 MCG TABLET (VITAMIN B-12) PO SCH (08:22)
[2020-01-30] MEDS: allopurinoL 100 MG TAB PO SCH (08:23)
[2020-01-30] MEDS: TRIAMTERENE/HCTZ 37.5/25MG CAP PO SCH (08:23)
[2020-01-30] MEDS: METOPROLOL TARTRATE 100 MG TAB PO SCH ×2 (08:23→20:12)
[2020-01-30] MEDS: POTASSIUM CHLORIDE 10 MEQ TABCR PO SCH (08:25)
[2020-01-30] MEDS: lisinopriL 20 MG TAB PO SCH (08:25)
[2020-01-30] MEDS ORDERED: ATORVASTATIN 10 MG TAB PO SCH ×2 (09:00→21:00)
[2020-01-30] MEDS ORDERED: APIXABAN 2.5 MG TAB PO SCH (09:00)
[2020-01-30] MEDS ORDERED: METOPROLOL TARTRATE 1 MG/ML VIAL IV STA (09:15)
[2020-01-30] MEDS ORDERED: METOPROLOL TARTRATE 1 MG/ML VIAL IV ONE (09:17)
--- NOTE | 2020-01-30 12:47 | XCELERA ---
[id number] \\[email or web address]\[id number]_[email or web address]\[id number]
[2020-01-30] MEDS: APIXABAN 5 MG TABLET PO SCH (20:12)
[2020-01-31 06:56] LABS: BUN Creatinine Ratio 18.2 (10-20); Calcium 9.1 mg/dl (8.5-10.1); Creatinine Clr Calc Pharmacy 46.2 ml/min; Est GFR (African American) 61.1; Est GFR (Non-African American) 52.7; Phosphorus 3.6 mg/dl (2.5-4.9); Potassium 3.8 mmol/L (3.5-5.1)
--- NOTE | 2020-01-31 07:29 | Hospitalist Progress Note ---
Date of Service January 30, 2020 Assessment & Plan (1) Atrial fibrillation with RVR: Continue metoprolol 100mg BID. Additional 5mg IV given this morning. Unclear exacerbating event. TSH WNL. No alcohol. No current infection suspected. Start apixaban 5mg BID (unclear reason for reduced dose on admission. (2) Hyperlipidemia: Continue O/P atorvastatin 10mh PO daily (3) Hypertension: Holding her usual antihypertensives as may need diltiazem if she continues to have RVR episodes with increased dose of metoprolol. (4) Thyroid nodule: Will need US thyroid and FNA as outpatient as concerning this is cancerous with TSH WNL. (5) Abnormal CT scan, lung: Procalcitonin negative for bacterial PNA. No current fever, shortness of breath or cough to suggest current URI. Sputum culutre ordered in case she is able to cough. Suspect may represent aspirations due to large thyroid nodule and speech consulted (6) Difficulty swallowing pills: As above. No odynophagia. Suspect she may be having swallowing issues due to size of thyroid nodule. Speech consulted. If she is aspirating would consider inpatient workup of thyroid nodule. (7) Lung nodule: 8mm lung nodule within left upper lobe. F/U CT in 6 months recommended. Admission and Anticipated Discharge Date Admission Date: January 30, 2020 Subjective Patient with no concerns or questions at this time. Main symptom with RVR with palpitations and fatigue but not feeling much different while in NSR. While talking to her she flipped back into a. fib with RVR and was given addition metoprolol 5mg IV which converted her back to NSR again. With regards to her CT findings. She reports succesful previous treatment Review of Systems Review of Systems: All systems reviewed & are unremarkable except as noted in HPI & below Physical Exam Constitutional: well developed and well nourished; no acute distress and not ill appearing Eyes: PERRL, conjunctivae normal, anicteric sclerae ENMT: external ear and nose normal, oropharynx normal Neck: trachea midline Thyroid: + thyroid nodule (palpable thyroid nodule on left side); thyroid nontender Respiratory: normal respiratory effort, lungs clear to auscultation Auscultation: no crackles, no rales, no rhonchi and no wheezes Cardiovascular: Rate/Rhythm: regular rate and regular rhythm Heart Sounds: normal S1 and normal S2; no murmur and no cardiac rub Extremities: + pedal edema; no calf tenderness Gastrointestinal (Abdomen): normal bowel sounds, soft, nontender, no hepatosplenomegaly Musculoskeletal: no cyanosis or clubbing, extremities motor strength 5/5 Skin: no rashes, warm and dry Neurologic: moves all extremities and awake; no focal motor deficits and not confused Motor/Sensory: no pronator drift Psychiatric: A+Ox3, euthymic affect Lymphatic: no cervical or axillary lymphadenopathy Results & Data ([facility]) Vital Signs (Past 12 Hours) Vital Signs Temp Pulse Resp BP BP Pulse Ox 01/31/20 03:52 36.5 C 76 18 147/65 H 96 01/30/20 23:29 36.4 C L 66 16 129/67 95 01/30/20 19:35 36.6 C 60 17 126/71 94 PG Care Time/CCT Total # of Minutes Spent Total Time Spent with Patient: Total time spent is greater than 50% in coordination of care (as documented) at patient's floor/unit and/or counseling patient: Coding Level of Care Code 89298 Subseq Hosp Care Lvl 3 Diagnoses Atrial fibrillation with RVR I48.91 Hyperlipidemia E78.5 Hyperlipidemia type: unspecified Hypertension I10 Hypertension type: essential hypertension Thyroid nodule E04.[address] scan, lung R91.8 Difficulty swallowing pills R19.8 Lung nodule R91.1 (1) Hyperlipidemia Hyperlipidemia type: unspecified Qualified Code(s): E78.5 - Hyperlipidemia, unspecified (2) Hypertension Hypertension type: essential hypertension Qualified Code(s): I10 - Essential (primary) hypertension
[2020-01-31] MEDS: METOPROLOL TARTRATE 100 MG TAB PO SCH (08:07)
[2020-01-31] MEDS: APIXABAN 5 MG TABLET PO SCH (08:07)
[2020-01-31] MEDS: POTASSIUM CHLORIDE 10 MEQ TABCR PO SCH (08:07)
[2020-01-31] MEDS: lisinopriL 20 MG TAB PO SCH (08:08)
[2020-01-31] MEDS: allopurinoL 100 MG TAB PO SCH (08:08)
[2020-01-31] MEDS: CYANOCOBALAMIN 500 MCG TABLET (VITAMIN B-12) PO SCH (08:08)
[2020-01-31] MEDS: TRIAMTERENE/HCTZ 37.5/25MG CAP PO SCH (08:08)
[2020-01-31 12:05] VITALS: TEMP 97.5; O2SAT 96
--- NOTE | 2020-01-31 13:17 | Electrocardiogram Report ---
Test Reason : Blood Pressure : / mmHG Vent. Rate : 151 BPM Atrial Rate : 156 BPM P-R Int : 000 ms QRS Dur : 108 ms QT Int : 302 ms P-R-T Axes : 000 -53 114 degrees QTc Int : 478 ms Atrial fibrillation with rapid ventricular response Left axis deviation Minimal voltage criteria for LVH, may be normal variant Anterior infarct , age undetermined Marked ST abnormality, possible lateral subendocardial injury Abnormal ECG When compared with ECG of 19-AUG-2016 23:27, Atrial fibrillation has replaced Sinus rhythm Vent. rate has increased BY 67 BPM T wave inversion now evident in Lateral leads Confirmed by Cordell De Paz ([id number]) on 01/31/2020 1:17:20 PM Referred By: REFERRED SELF Confirmed By:Cordell De Paz
--- NOTE | 2020-01-31 13:17 | Electrocardiogram Report ---
Test Reason : Blood Pressure : / mmHG Vent. Rate : 092 BPM Atrial Rate : 092 BPM P-R Int : 206 ms QRS Dur : 104 ms QT Int : 380 ms P-R-T Axes : 063 -54 046 degrees QTc Int : 469 ms Poor data quality, interpretation may be adversely affected Normal sinus rhythm Left axis deviation Minimal voltage criteria for LVH, may be normal variant Inferior infarct , age undetermined Possible Anterior infarct (cited on or before 30-JUN-2005) Abnormal ECG When compared with ECG of 29-JAN-2020 23:20, (unconfirmed) Sinus rhythm has replaced Atrial fibrillation Vent. rate has decreased BY 59 BPM T wave inversion no longer evident in Lateral leads Confirmed by Cordell De Paz ([id number]) on 01/31/2020 1:17:40 PM Referred By: REFERRED SELF Confirmed By:Cordell De Paz
[2020-01-31 14:19] VITALS: BP 129/67; PULSE 89
--- NOTE | 2020-01-31 14:42 | Cardiology Consultation ---
Date of Consultation January 31, 2020 Assessment & Plan (1) Atrial fibrillation with RVR: No clear precipitant for her new onset atrial fibrillation. Agree with anticoagulation given her CHADS-Vasc score of 4. No obvious contraindication, but she does have a mild anemia which appears to be new and should be monitored. Agree with increase in beta-shara for rate control and to reduce frequency of recurrence. She was increased from 50 mg metoprolol tartrate twice daily to 100 mg twice daily, however her evening dose was held due to relative bradycardia (asymptomatic heart rate in the 50s). Recommend discharged on metoprolol tartrate 75 mg twice daily, with further titration as an outpatient depending upon recurrent symptoms and her resting heart rate. Case discussed with Dr. Preston. (2) Hypertension: Normotensive on lisinopril and Dyazide as well as metoprolol. Monitor BP as outpatient, may be able to reduce her lisinopril given the need for increased metoprolol. (3) Hyperlipidemia: She had an LDL of 47 earlier this year, no change in her atorvastatin 10 mg daily. (4) Abnormal CXR: Chest x-ray and chest CT abnormalities may be residual from her earlier pneumonias, since she did have a nodule she should have a follow-up chest CT, at which time her pulmonary infiltrates can be reevaluated (sooner if symptoms occur). History of Present Illness Reason for Consultation: Atrial fibrillation/rapid ventricular response. Requesting Physician: Jeff Preston DO Attending Physician: Jeff Preston DO History of Present Illness 84-year-old generally healthy woman with no prior cardiac history who noted abrupt onset of palpitations last evening, reported to the emergency department, was found to have atrial fibrillation with rapid ventricular response (up to 147 bpm). She has history of hypertension and dyslipidemia and had several episodes of viral URI type symptoms in November 2019, but felt that she had mostly recovered from this (some fatigue and dyspnea on higher levels of exertion, otherwise asymptomatic). She felt well prior to the onset of palpitations. She denied noting any chest pain, lightheadedness, presyncope, syncope, or focal neurologic symptoms at any time. While still in the ER, her rhythm reverted to sinus. Review of the monitor showed that she has remained in sinus overnight. At the time of my evaluation this morning, she had no complaints. Allergies Allergy/AdvReac Type Severity Reaction Status Date / Time No Known Allergies Allergy Verified 01/29/20 23:44 Home Medications Home Medications Medication Instructions Recorded Confirmed Type triamterene 37.5 1 cap PO DAILY #90 cap 10/25/19 01/29/20 Rx mg-hydrochlorothiazide 25 mg capsule atorvastatin 10 mg tablet 10 mg PO DAILY #90 tab 11/02/19 01/29/20 Rx lisinopril 20 mg tablet 20 mg PO DAILY #90 tab 11/02/19 01/29/20 Rx cyanocobalamin (vitamin B-12) 1,000 mcg PO DAILY tab 11/21/19 01/29/20 History 1,000 mcg tablet potassium chloride 8 mEq 8 meq PO DAILY #30 tab 12/13/19 01/29/20 Rx tablet,extended release allopurinol 100 mg tablet 100 mg PO DAILY #30 tab 01/19/20 01/29/20 Rx ergocalciferol (vitamin D2) 50,000 units PO WK 01/29/20 01/29/20 History fluticasone propionate [Flonase 2 sprays INTNAS DAILY PRN 01/29/20 01/29/20 History Allergy Relief] furosemide 10 mg PO DAILY PRN 01/29/20 01/29/20 History apixaban [Eliquis] 5 mg PO BID #60 tab 01/31/20 Rx metoprolol tartrate 75 mg PO BID #60 tab 01/31/20 Rx Patient History Medical History Cyst of breast Lichen sclerosus et atrophicus Nephrolithiasis Surgical History H/O colonoscopy History of kidney surgery S/P cholecystectomy S/P tubal ligation Family History Cervical cancer Mother Tetanus Father Coronary heart disease Brother Breast cancer Aunt maternal Grandmother (Maternal) Varicose veins of both lower extremities Mother Denies family history of Ovarian cancer Prostate cancer Colorectal cancer Social History Preferred Language: Monegasque Communication Ability: Effective Hearing Ability: Normal 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 Beliefs That Will Affect Care: None marital status: Current Living Situation: Spouse current occupational status: retired Feels Safe at Home: Yes Smoking Status: Never smoker Hx Alcohol Use: No Hx Substance Use: No Physical Activity Frequency: Does not Exercise Seatbelt Use: always Sunscreen Use: Yes Review of Systems Constitutional: no fever, no chills, no fatigue, no weight loss and no weight gain Eyes: no problem reported Ear, Nose, Mouth, Throat: no problem reported Respiratory: as per Subjective / HPI and + dyspnea on exertion (She sits down to rest after 1 flight of stairs, but this is not new for her.); no cough and no dyspnea Cardiovascular: as per Subjective / HPI Gastrointestinal: + constipation (Chronic, she takes a laxative intermittently.); no abdominal pain and no change in stools Genitourinary: no problem reported Musculoskeletal: no myalgia Integumentary: no rash and no new lesions Neurologic: no falls and no syncope Psychiatric: no problem reported Hematologic / Lymphatic: no easy bleeding and no easy bruising Physical Exam Physical Exam: Elderly white female in no distress. Skin: no ecchymoses or generalized lesions. HEENT: unremarkable. Neck: Jugular venous pulse one quarter of the way to the clavicle at 90 degrees, bilateral transmitted murmur versus carotid bruits. Lungs: Clear and equal breath sounds bilaterally. Cardiac: irregular rhythm with 2/6 right upper sternal border systolic ejection murmur radiating to the carotids, no diastolic murmur or obvious gallop. Abdomen: benign. Extremities: no edema, pulses brisk. Neurologic: normal affect, nonfocal. Results & Data ([facility]) Laboratory Results 01/30/20 01/30/20 01/31/20 06:24 16:33 06:00 Hgb 10.5 L Creatinine 0.99 Troponin I 0.016 Diagnostic Findings Initial ECG showed atrial fibrillation with rapid ventricular spots (151 bpm), voltage criteria for LVH, rate related ST depressions. Subsequent ECGs showed sinus rhythm with normalization of ST segments. Echocardiogram showed normal LV size and systolic function (EF equal 55 to 60%), mild mitral and tricuspid regurgitation. Chest x-ray showed cardiomegaly with mild congestive change and a patchy right basilar airspace opacity. CT of the chest was negative for pulmonary embolism, patchy consolidation at the lung bases felt consistent with pneumonia. Nodular density left upper lobe, follow-up CT recommended. PG Care Time/CCT Total # of Minutes Spent Total Time Spent with Patient: Total time spent is greater than 50% in coordination of care (as documented) at patient's floor/unit and/or counseling patient: Coding Level of Care Code 17950 Initial Inpt Care Lvl 3 Diagnoses Atrial fibrillation with RVR I48.91 Hypertension I10 Hypertension type: essential hypertension Hyperlipidemia E78.5 Hyperlipidemia type: unspecified Abnormal CXR R93.89 (1) Hypertension Hypertension type: essential hypertension Qualified Code(s): I10 - Essential (primary) hypertension (2) Hyperlipidemia Hyperlipidemia type: unspecified Qualified Code(s): E78.5 - Hyperlipidemia, unspecified
--- NOTE | 2020-01-31 15:27 | Electrocardiogram Report ---
Test Reason : Blood Pressure : / mmHG Vent. 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
--- NOTE | 2020-01-31 17:58 | Discharge Summary ---
Date of Service January 31, 2020 Admission HPI Per Admitting Provider Aaliyah Leiva is an 84 year old woman with a past medical history significant for HTN, HLD, and gout. She is here today for heart palpitations and some associated mild shortness of breath. This started around 10 pm tonight, and felt like her heart was booming and racing. She has never had anything like this in the past. She was recently ill with back to back URI illnesses starting in November, but has completely recovered from those other than being a little quicker to tire since being sick. No shortness of breath, no cough, no chest pain, no nausea, vomiting, abdominal pain, diaphoresis, syncope or presyncope. She presented to the emergency department where she was found to be in atrial fibrillation with a rate as high as 147, Her blood pressure remained hypertensive throughout. Troponin negative EKG not showing any acute ST segment changes. CXR showing enlarged heart CTA showing no pulmonary emboli. Patient converted to sinus rhythm in ED before receiving any medical therapy. Her rates have been around 100 bpm in sinus rhythm. She denies shortness of breath at this time. Principal Diagnosis new afib abnormal CT chest (see below) thyroid lesion (see below) Discharge Exam General she is awake and alert pleasant no distress. HEENT normocephalic atraumatic mucous membranes moist. Breathing unlabored no accessory muscle use good effort. Skin shows no rashes no pallor or icterus. Heart rates are better controlled. Neuro shows cranial nerves II through XII are grossly intact gross motor and sensory are intact. Discharge Data Allergies Allergy/AdvReac Type Severity Reaction Status Date / Time No Known Allergies Allergy Verified 01/29/20 23:44 Consultations 01/29/20 23:52 ED Decision to Admit Stat 01/30/20 09:20 Consult Cardiology Routine Ordered Studies 01/29/20 23:25 CT angio chest PE protocol Urgent Hospital Course (1) Atrial fibrillation with RVR: Metoprolol 75 mg twice daily for rate controltitrate as an outpatient Anticoagulated with Eliquis Stable for home (2) Hyperlipidemia: Continue O/P atorvastatin 10mh PO daily (3) Hypertension: Home on home meds plus the new metoprolol, close outpatient follow-up (4) Thyroid nodule: Will need US thyroid recommended this be done as an outpatient in the next week or 2. Outpatient follow-up otherwise. (5) Abnormal CT scan, lung: Radiographically appears most consistent with a pneumoniabut patient has no white count no fever no cough no sputum no shortness of breath and clear lungs. Speech eval was very reassuring in regards to aspiration. Does not appear to require treatment, but would have outpatient follow-upas it relates to the lung nodule it would be in 6 months, but given these other findings would recommend a CT in approximately a month to follow for stability versus resolution. Obviously if patient develops any new symptoms she should come back sooner, but this would be unlikely. (6) Difficulty swallowing pills: As above. No odynophagia. Did well with speech eval (7) Lung nodule: 8mm lung nodule within left upper lobe. F/U CT in 6 months recommended. (Lungs will otherwise be followed as it relates to abnormal CT above) Total Time Total Time Spent Total Time Spent (In Minutes): Greater than 30 Discharge Plan Discharge Items Patient Disposition: Home - Self-Care Reason For Visit: ATRIAL FIBRILLATION/PALPITATIONS Discharge Diagnosis: atrial fibrillation Activity: Resume your previous activity Non-emergency contact: Primary Care Provider Call non-emergency contact if: you have any medication questions and your symptoms worsen Follow-up/Referrals: Scott Kessler III, MD [Primary Care Provider] - 02/07/20 1:00 pm (F/U WITH CRIS SANDOVAL NP ON FEBRUARY 07, 2020 AT 1:00 P.M.) Diet: Regular Addtl Attending Provider Instructions: atrial fibrillation -afib is an irregular rhythm of the heart - the wiring in the top part of the heart (atria) starts not working properly, and then the top part of the heart quivers instead of contracts. because of this, the bottom part of the heart (ventricles) can race when being bombarded with all the extra signals from the top --- this is what was causing the palpitation sensations you were feeling when you got admitted -in addition to the problem of heart racing, when the atria quiver instead of contract it can allow a stagnant pond of blood, in which clots can form. these clots can then lead to strokes if untreated. -for most people, managing afib is simply a matter of a medication to keep the rate under control and a blood thinner to reduce your risk of stroke -for you, that will be the metoprolol at 75mg twice a day, and eliquis 5mg twice a day lung findings on CT -the lung findings on CT in the ER were suggestive of a pneumonia; however, you showed no signs or symptoms of pneumonia and your labwork was extremely reassuring as far as no signs of inflammation or infection - to that end you were not on any antibiotics while you were here and showed no developing signs of pneumonia - corroborating that the findings are not consistent with infection. We'd want you to keep an eye out for symtpoms (unlikely to develop) like fevers/chills/sweats or a new cough - if you develop those get seen right away, but they're unlikely. otherwise we'd ask that your PCP re-order a chest CT in a month or so to re-evaluate the findings (the one area does meet criteria for a [address] but the rest should be looked at sooner to evaluate if it changes at all or if it's most likely indicative of old scar tissue) thyroid nodule -similar to the lung findings above, this was an incidental finding. it likely has been there a while and is not causing you harm. to be safe, we should have your PCP order an ultrasound in the next week or two to evaluate it in better detail than can be seen on CT Pending Studies at Discharge: No Stand-Alone Forms: My [facility], Smoking Cessation Medications and DC Order Prescriptions: New Eliquis 5 mg Tablet 5 mg PO BID Qty: 60 RF: 0 metoprolol tartrate 75 mg tablet 75 mg PO BID Qty: 60 RF: 0 Continued triamterene-hydrochlorothiazid 37.5-25 mg capsule 1 cap PO DAILY Qty: 90 RF: 3 atorvastatin 10 mg tablet 10 mg PO DAILY Qty: 90 RF: 3 lisinopril 20 mg tablet 20 mg PO DAILY Qty: 90 RF: 3 potassium chloride [Klor-Con 8] 8 mEq tablet extended release 8 meq PO DAILY Qty: 30 RF: 5 allopurinol 100 mg tablet 100 mg PO DAILY Qty: 30 RF: 5 cyanocobalamin (vitamin B-12) 1,000 mcg tablet 1,000 mcg PO DAILY RF: 0 furosemide 20 mg tablet 10 mg PO DAILY PRN (Reason: SOB OR SWELLING) RF: 0 ergocalciferol (vitamin D2) 1,250 mcg (50,000 unit) capsule 50,000 units PO WK RF: 0 fluticasone propionate [Flonase Allergy Relief] 50 mcg/actuation spray,suspension 2 sprays INTNAS DAILY PRN (Reason: Congestion) RF: 0 Discontinued metoprolol tartrate 50 mg tablet 50 mg PO BID Qty: 180 RF: 3 Discharge Orders: Discharge Order (Routine); Ordered 01/31/20 Ordered By: Jeff Preston Admission Data Admit Date/Time: 01/30/20 09:21 Attending Provider: Jeff Preston Admit Provider: Baron Bazan Primary Care Provider: Scott Kessler III Other Providers: Shayy Gamboa ; Cordell De Paz ; Micah Almazan Other Interventions: Discharge Summary Assessment (RN) Last Done: 01/31/20 14:17 DC Date/Time DO NOT enter until pt leaves facility: 01/31/20 15:00 Coding Level of Care Code D/C Day Management >30 mins Diagnoses Atrial fibrillation with RVR I48.91 Hyperlipidemia E78.5 Hyperlipidemia type: unspecified Hypertension I10 Hypertension type: essential hypertension Thyroid nodule E04.[address] scan, lung R91.8 Difficulty swallowing pills R19.8 Lung nodule R91.1
[2020-02-02] MEDS ORDERED: ERGOCALCIFEROL 50,000 UNITS CAP PO SCH (09:00)
== END 2020-01-31 15:00 | disposition home or self-care (01) | DRG 310 ==
LOC: 2S 23:10 → ED 23:10 → SUATTDRO 01-30 00:38 → 2S 01-30 01:12 → SUATTDRO 01-30 09:21

== ENCOUNTER 2020-04-21 11:42 | Inpatient (IN) ==
[2020-04-21 12:30] LABS: Basophils # (auto) 0.03 K/uL (0-0.2); Basophils % (auto) 0.3 %; Eosinophils # (auto) 0.12 K/uL (0-0.5); Eosinophils % (auto) 1.2 %; Hemoglobin 12.9 g/dL (12.0-16.0); Immature Granulocytes # (auto) 0.01 K/uL (0.00-0.02); Immature Granulocytes % (auto) 0.1 %; Lymphocytes # (auto) 2.58 K/uL (1.2-3.4); Lymphocytes % (auto) 25.1 %; Mean Corpuscular Hemoglobin 30.1 pg (25-34); Mean Corpuscular Hgb Conc 32.3 g/dL (32-36); Mean Corpuscular Volume 93.2 fL (80-100); Mean Platelet Volume 10.6 fL (7.4-10.4); Monocytes % (auto) 7.8 %; Neutrophils # (auto) 6.74 K/uL (1.4-6.5); Neutrophils % (auto) 65.5 %; Platelet Count 234 K/uL (130-400); RDW Coefficient of Variation 13.5 % (11.5-14.5); RDW Standard Deviation 45.8 fL (36.4-46.3); Red Blood Count 4.29 M/uL (4.2-5.4); White Blood Count 10.28 K/uL (4.8-10.8)
--- NOTE | 2020-04-21 12:35 | XRay Report ---
XR chest 1V portable CLINICAL HISTORY: atrial fib COMPARISON STUDY: 04/07/2020 FINDINGS: The heart remains enlarged. There is mild central vascular prominence. There are no signifi cant pleural effusions. There are mildly increased basilar markings, atelectatic versus infectious/in flammatory. IMPRESSION: 1. Cardiomegaly and mild vascular prominence 2. Mild basilar opacities, atelectatic versus infectious/inflammatory ACT 112: Negative or not required by law. Electronically signed by: Jasiel Estes M.D. 04/21/2020 12:33 PM
[2020-04-21 12:49] LABS: Alanine Aminotransferase 19 U/L (12-78); Albumin Level 3.4 gm/dl (3.4-5.0); Aspartate Aminotransferase 13 U/L (15-37); BUN Creatinine Ratio 17.3 (10-20); Blood Urea Nitrogen 19 mg/dl (7-18); Calcium 9.6 mg/dl (8.5-10.1); Carbon Dioxide 27 mmol/L (21-32); Chloride 107 mmol/L (98-107); Creatinine Clr Calc Pharmacy 40.4 ml/min; Est GFR (African American) 53.4; Est GFR (Non-African American) 46.1; Glucose 134 mg/dl (70-99); Magnesium 2.2 mg/dl (1.8-2.4); Sodium 138 mmol/L (136-145)
[2020-04-21 12:59] LABS: Albumin Globulin Ratio 0.8 (0.9-2); Alkaline Phosphatase 82 U/L (45-117); Bilirubin,Total 0.3 mg/dl (0.2-1); Globulin 4.3 gm/dl (2.5-4.0); Total Protein 7.7 gm/dl (6.4-8.2); Troponin I < 0.015 ng/ml (0-0.045)
[2020-04-21] MEDS: METOPROLOL TARTRATE 1 MG/ML VIAL IV PRN ×2 (13:59→15:07)
--- NOTE | 2020-04-21 17:02 | Electrocardiogram Report ---
Test Reason : Blood Pressure : / mmHG Vent. 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
[2020-04-21] MEDS ORDERED: FLUTICASONE PROPIONATE NA SPR 16 GM BTL PRN (18:08)
[2020-04-21] MEDS ORDERED: ONDANSETRON INJ 2 MG/ML 2 ML VIAL IV PRN (18:08)
[2020-04-21] MEDS ORDERED: FUROSEMIDE 20 MG TAB PO PRN (18:08)
[2020-04-21] MEDS ORDERED: ACETAMINOPHEN 325 MG TAB PO PRN (18:08)
[2020-04-21] MEDS ORDERED: MICONAZOLE NITRATE POWDER 43 GM EXT PRN (18:10)
[2020-04-21] MEDS ORDERED: FLECAINIDE ACETATE 100 MG TABLET PO ONE (18:25)
--- NOTE | 2020-04-21 18:36 | History & Physical Report ---
Date of Service April 21, 2020 Assessment & Plan (1) Atrial fibrillation with RVR: Discussed with Dr De Paz. We will elect for rhythm control strategy with the addition of flecainide. 100mg now. Then 50mg BID starting in AM with morning EKG to assess QTc prolongation. 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 Diagnosis currently unknown to patient. I do not feel this is relevant to her current presentation and looked up pathology after I had met with patient and she told me about recent FNA therefo re this was not discussed. Will need follow up with PCP on discharge. (3) Hypertension: Continue metoprolol 100mg BID Continue triamterene/HCTZ Monitor for hypotension with addition of flecainide (4) Primary gout: Continue allopurinol 100mg PO daily (5) DVT prophylaxis: Continue apixaban Admission and Anticipated Discharge Date Admission Date: April 21, 2020 History of Present Illness Chief Complaint: Fatigue, elevated heart rate Primary Care Provider: Scott Kessler MD Aaliyah Leiva is an 85 year old female with known paroxysmal atrial fibrillation who presents to the ER after feeling suddenly fatigued this morning around 10:30am and noticing her heart was elevated again. She felt the same way with some mild shortness of breath on exertion and fatigue on prior occasions when she was in atrial fibrillation. On previous occasions she has converted after a dose of metoprolol 5mg IV or generally the goal has been increasing her metoprolol to the point where she is now taking 100mg BID. She saw Dr Garrido on one of her prior hospitalizations however does not follow with cardiology as an outpatient. On one prior occasion in the ER she converted with just putting in the IV line. She denies any palpitations, chest pain, claudication, presyncope or syncope. Allergies Allergy/AdvReac Type Severity Reaction Status Date / Time No Known Allergies Allergy Verified 04/21/20 12:40 Home Medications Home Medications Medication Instructions Recorded Confirmed Type triamterene 37.5 1 cap PO DAILY #90 cap 10/25/19 04/21/20 Rx mg-hydrochlorothiazide 25 mg capsule lisinopril 20 mg tablet 20 mg PO DAILY #90 tab 11/02/19 04/21/20 Rx cyanocobalamin (vitamin B-12) 1,000 mcg PO DAILY tab 11/21/19 04/21/20 History 1,000 mcg tablet potassium chloride 8 mEq 8 meq PO DAILY #30 tab 12/13/19 04/21/20 Rx tablet,extended release allopurinol 100 mg tablet 100 mg PO DAILY #30 tab 01/19/20 04/21/20 Rx ergocalciferol (vitamin D2) 50,000 units PO WK 01/29/20 04/21/20 History fluticasone propionate [Flonase 2 sprays INTNAS DAILY PRN 01/29/20 04/21/20 History Allergy Relief] furosemide 20 mg tablet 10 mg PO DAILY PRN #90 tab 02/28/20 04/21/20 Rx metoprolol tartrate 100 mg tablet 100 mg PO BID 90 Days #180 tab 04/11/20 04/21/20 Rx apixaban 5 mg tablet 5 mg PO BID #60 tab 04/18/20 04/21/20 Rx Past Med/Surg History Medical History Cyst of breast Lichen sclerosus et atrophicus Nephrolithiasis Surgical History H/O colonoscopy History of kidney surgery S/P cholecystectomy S/P tubal ligation Family History Aunt Breast cancer maternal Grandmother (Maternal) Breast cancer Mother Cervical cancer Varicose veins of both lower extremities Brother Coronary heart disease Father Tetanus Denies family history of Ovarian cancer Prostate cancer Colorectal cancer Social History Preferred Language: Bahamian Communication Ability: Effective Hearing Ability: Normal 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 Beliefs That Will Affect Care: None marital status: Current Living Situation: Spouse current occupational status: retired Other Information That Helps Us Care for You: No Feels Safe at Home: Yes Safety Concerns: Feels Safe At This Time Smoking Status: Never smoker Do You Dip or Chew Tobacco: No ; Second Hand Exposure: No ; Hx Alcohol Use: No Hx Substance Use: No Physical Activity Frequency: Does not Exercise Seatbelt Use: always Sunscreen Use: Yes Review of Systems Review of Systems: All systems reviewed & are unremarkable except as noted in HPI & below Physical Exam Constitutional: well developed and + obese; no acute distress Eyes: PERRL, conjunctivae normal, anicteric sclerae ENMT: external ear and nose normal, oropharynx normal Neck: trachea midline, no thyromegaly Cardiovascular: Rate/Rhythm: + tachycardic and + irregularly irregular Heart Sounds: no murmur Vessels: no JVD Extremities: normal capillary refill and + pedal edema (1+ b/l equal edema but R cirumference chronically > L); no calf tenderness (right calf > left calf chronically) Gastrointestinal (Abdomen): normal bowel sounds, soft, nontender, no hepatosplenomegaly Musculoskeletal: no cyanosis or clubbing, extremities motor strength 5/5 Skin: no rashes, warm and dry Neurologic: moves all extremities and awake; no focal motor deficits and not confused Speech / Cognition: normal speech Motor/Sensory: no tremor and no pronator drift Psychiatric: A+Ox3, euthymic affect Results & Data Results & Data ([facility]) Vital Signs (Past 12 Hours) Vital Signs Temp Pulse Resp BP Pulse Ox 04/21/20 17:53 121 H 17 138/110 H 96 04/21/20 17:45 121 H 17 138/110 H 96 04/21/20 17:00 133 H 23 142/90 H 04/21/20 16:30 123 H 28 H 138/79 04/21/20 16:01 115 H 19 173/123 H 04/21/20 15:30 119 H 28 H 134/98 96 04/21/20 15:07 131 H 26 H 142/107 H 96 04/21/20 15:06 106 H 23 142/107 H 97 04/21/20 14:30 113 H 22 142/89 H 04/21/20 14:00 110 H 22 121/77 96 04/21/20 13:59 110 H 121/77 04/21/20 13:30 117 H 22 128/107 H 04/21/20 13:00 127 H 22 140/108 H 94 04/21/20 12:14 95 04/21/20 12:04 121 H 22 157/95 H 04/21/20 11:51 36.6 C 118 H 26 H 179/109 H 95 Diagnostic Findings XR chest 1V portable IMPRESSION: 1. Cardiomegaly and mild vascular prominence 2. Mild basilar opacities, atelectatic versus infectious/inflammatory ECG Indication: tachycardia Rate (beats per minute): 132 Rhythm: atrial fibrillation Findings: + RBBB; no acute ischemic change Comparison ECG Date: from (04/07/2020) Change: the following changes noted (no in atrial fibrillation with RVR) Code Status & VTE Plan Code Status Everything wanted outside of a cardiac arrest VTE Prophylaxis Plan VTE Prophylaxis will be ordered: Yes PG Care Time/CCT Total # of Minutes Spent Total Time Spent with Patient: Total time spent is greater than 50% in coordination of care (as documented) at patient's floor/unit and/or counseling patient: Coding Level of Care Code 44219 Initial Inpt Care Lvl 3 Diagnoses Atrial fibrillation with RVR I48.91 Follicular thyroid cancer C73 Hypertension I10 Hypertension type: essential hypertension Primary gout M10.00 DVT prophylaxis Z29.9 (1) Hypertension Hypertension type: essential hypertension Qualified Code(s): I10 - Essential (primary) hypertension
[2020-04-21] MEDS: METOPROLOL TARTRATE 100 MG TAB PO SCH (19:59)
[2020-04-21] MEDS: APIXABAN 5 MG TABLET PO SCH (20:27)
--- NOTE | 2020-04-21 20:46 | Emergency Department Note ---
History of Present Illness General Chief complaint: Arrhythmia/Palpitations Stated complaint: PALPITATUIONS Time Seen by Provider: 04/21/20 12:00 Source: patient Mode of arrival: ambulatory Limitations: no limitations History of Present Illness Provider complaint: Heart fluttering This patient is an 85-year-old female who presents emergency department with complaints of heart fluttering. Patient states she has a history of atrial fibrillation and was evaluated several weeks ago in the emergency department. Patient has a history of being admitted to the hospital in January of this year with a new onset atrial fib. She was seen 2 weeks ago and spontaneously converted to a sinus rhythm. Patient is currently taking metoprolol tartrate 100 mg twice daily. She is also anticoagulated. She denies any recent illness, fever, cough, chest pain but does admit to some shortness of breath, particularly with exertion. Patient states she had sudden onset of symptoms this morning. Home Medications Home Medications Medication Instructions Recorded Confirmed Type triamterene 37.5 1 cap PO DAILY #90 cap 10/25/19 04/21/20 Rx mg-hydrochlorothiazide 25 mg capsule lisinopril 20 mg tablet 20 mg PO DAILY #90 tab 11/02/19 04/21/20 Rx cyanocobalamin (vitamin B-12) 1,000 mcg PO DAILY tab 11/21/19 04/21/20 History 1,000 mcg tablet potassium chloride 8 mEq 8 meq PO DAILY #30 tab 12/13/19 04/21/20 Rx tablet,extended release allopurinol 100 mg tablet 100 mg PO DAILY #30 tab 01/19/20 04/21/20 Rx ergocalciferol (vitamin D2) 50,000 units PO WK 01/29/20 04/21/20 History fluticasone propionate [Flonase 2 sprays INTNAS DAILY PRN 01/29/20 04/21/20 History Allergy Relief] furosemide 20 mg tablet 10 mg PO DAILY PRN #90 tab 02/28/20 04/21/20 Rx metoprolol tartrate 100 mg tablet 100 mg PO BID 90 Days #180 tab 04/11/20 04/21/20 Rx apixaban 5 mg tablet 5 mg PO BID #60 tab 04/18/20 04/21/20 Rx Allergies Allergy/AdvReac Type Severity Reaction Status Date / Time No Known Allergies Allergy Verified 04/21/20 12:40 Past Med/Surg History Medical History Cyst of breast Lichen sclerosus et atrophicus Nephrolithiasis Surgical History H/O colonoscopy History of kidney surgery S/P cholecystectomy S/P tubal ligation Family History Aunt Breast cancer maternal Grandmother (Maternal) Breast cancer Mother Cervical cancer Varicose veins of both lower extremities Brother Coronary heart disease Father Tetanus Denies family history of Ovarian cancer Prostate cancer Colorectal cancer Social History Preferred Language: [place] Citizen Communication Ability: Effective Hearing Ability: Normal 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 and A total of 10 systems reviewed and were otherwise negative Physical Exam Vital Signs Vital Signs - 24 hr 04/21/20 11:51 04/21/20 12:04 04/21/20 12:14 Temperature 36.6 C Temperature Source Oral Pulse Rate 118 H 121 H Pulse Rate from SpO2 Sensor 108 H Respiratory Rate 26 H 22 Respiratory Effort / Characteristics Non-Labored Spontaneous Blood Pressure 179/109 H 157/95 H Blood Pressure Mean 132 101 Pulse Oximetry 95 95 95 Oxygen Delivery Method Room Air Room Air Room Air Sepsis Action Taken by Nursing No Action Required 04/21/20 12:47 04/21/20 13:00 04/21/20 13:30 Temperature Temperature Source Pulse Rate 127 H 117 H Pulse Rate from SpO2 Sensor 128 H 121 H Respiratory Rate 22 22 Respiratory Effort / Characteristics Non-Labored Spontaneous Blood Pressure 140/108 H 128/107 H Blood Pressure Mean 121 112 Pulse Oximetry 94 95 Oxygen Delivery Method Room Air Room Air Room Air Sepsis Action Taken by Nursing 04/21/20 13:59 04/21/20 14:00 04/21/20 14:30 Temperature Temperature Source Pulse Rate 110 H 110 H 113 H Pulse Rate from SpO2 Sensor 110 H 113 H Respiratory Rate 22 22 Respiratory Effort / Characteristics Blood Pressure 121/77 121/77 142/89 H Blood Pressure Mean 91 94 Pulse Oximetry 96 95 Oxygen Delivery Method Room Air Sepsis Action Taken by Nursing 04/21/20 15:06 04/21/20 15:07 04/21/20 15:30 Temperature Temperature Source Pulse Rate 106 H 131 H 119 H Pulse Rate from SpO2 Sensor 115 H 111 H 111 H Respiratory Rate 23 26 H 28 H Respiratory Effort / Characteristics Blood Pressure 142/107 H 142/107 H 134/98 Blood Pressure Mean 118 118 117 Pulse Oximetry 97 96 96 Oxygen Delivery Method Sepsis Action Taken by Nursing 04/21/20 16:01 Temperature Temperature Source Pulse Rate 115 H Pulse Rate from SpO2 Sensor 88 Respiratory Rate 19 Respiratory Effort / Characteristics Blood Pressure 173/123 H Blood Pressure Mean 145 Pulse Oximetry 95 Oxygen Delivery Method Sepsis Action Taken by Nursing Vital signs reviewed. General: Well-appearing 85 yo female, in no significant distress. HEENT: MMM, sclera non- icteric Cardiovascular: Tachycardic and irregular. Pulmonary: Clear to auscultation bilaterally, normal work of breathing. Abdomen: Soft, nontender, nondistended, positive bowel sounds. Musculoskeletal: Atraumatic, no peripheral edema. Neurologic: Patient awake alert and oriented x 3 Skin: Warm, dry, no rash Course Administered Medications Allopurinol (Zyloprim) 100 mg PO DAILY [facility] Stop: 05/22/20 08:59 Last Admin: 04/22/20 08:06 Dose: 100 mg Documented by: [id number] Apixaban (Eliquis) 5 mg PO BID [facility] Stop: 05/21/20 20:59 Last Admin: 04/22/20 08:05 Dose: 5 mg Documented by: [id number] Admin: 04/21/20 20:27 Dose: 5 mg Documented by: [id number] Cyanocobalamin (Vitamin B-12) 1,000 mcg PO DAILY [facility] Stop: 05/22/20 08:59 Last Admin: 04/22/20 08:06 Dose: 1,000 mcg Documented by: [id number] Flecainide Acetate (Tambocor) 50 mg PO BID [facility] Stop: 05/22/20 08:59 Last Admin: 04/22/20 08:07 Dose: 50 mg Documented by: [id number] Lisinopril (Zestril) 20 mg PO DAILY [facility] Stop: 05/22/20 08:59 Last Admin: 04/22/20 08:05 Dose: 20 mg Documented by: [id number] Metoprolol Tartrate (Lopressor) 5 mg IV Q5M PRN PRN Reason: Tachycardia Stop: 05/21/20 12:09 Last Admin: 04/21/20 15:07 Dose: 5 mg Documented by: [id number] Admin: 04/21/20 13:59 Dose: 5 mg Documented by: [id number] Metoprolol Tartrate (Lopressor) 100 mg PO BID [facility] Stop: 05/21/20 20:59 Last Admin: 04/22/20 08:03 Dose: Not Given Documented by: [id number] Admin: 04/21/20 19:59 Dose: 100 mg Documented by: [id number] Triamterene/HCTZ (Dyazide 37.5/25mg) 1 cap PO DAILY [facility] Stop: 05/22/20 08:59 Last Admin: 04/22/20 08:06 Dose: 1 cap Documented by: [id number] Discontinued Medications Flecainide Acetate (Tambocor) 100 mg PO ONE ONE Stop: 04/21/20 18:26 Last Admin: 04/21/20 19:58 Dose: 100 mg Documented by: [id number] Critical Care Time Critical Care Time: Yes The high probability of a clinically significant, sudden or life threatening deterioration required my full and direct attention, intervention and personal management. The aggregate critical care time was 35 minutes. This time is in addition to time spent performing reported procedures but includes the following: [x] Data Review and interpretation [x] Patient assessment and monitoring of vital signs [x] Documentation [x] Medication orders and management Medical Decision Making Differential Diagnosis Differential diagnosis: Etiologies such as infections, pneumonia, pulmonary edema, cardiac ischemia, cardiac tamponade, dysrhythmia, anemia, pulmonary embolism, musculoskeletal, gastrointestinal process, as well as others were entertained. Medical Records Attestation: I reviewed the patient's medical records. Home Medications Current Medication List: was personally reviewed by me Laboratory Data Attestation: I reviewed the patient's lab results. Result diagrams: 04/22/20 08:43 04/22/20 08:43 Lab Results 04/21/20 04/21/20 Range/Units 12:22 12:22 WBC 10.28 (4.8-10.8) K/uL RBC 4.29 (4.2-5.4) M/uL Hgb 12.9 (12.0-16.0) g/dL Hct 40.0 (37-47) % MCV 93.2 (80-100) fL MCH 30.1 (25-34) pg MCHC 32.3 (32-36) g/dL RDW Std Deviation 45.8 (36.4-46.3) fL RDW Coeff of Toney 13.5 (11.5-14.5) % Plt Count 234 (130-400) K/uL MPV 10.6 H (7.4-10.4) fL Immature Gran % (Auto) 0.1 % Neut % (Auto) 65.5 % Lymph % (Auto) 25.1 % [place] % (Auto) 7.8 % Eos % (Auto) 1.2 % Baso % (Auto) 0.3 % Immature Gran # (Auto) 0.01 (0.00-0.02) K/uL Neut # (Auto) 6.74 H (1.4-6.5) K/uL Lymph # (Auto) 2.58 (1.2-3.4) K/uL [place] # (Auto) 0.80 H (0.11-0.59) K/uL Eos # (Auto) 0.12 (0-0.5) K/uL Baso # (Auto) 0.03 (0-0.2) K/uL Sodium 138 (136-145) mmol/L Potassium 4.0 (3.5-5.1) mmol/L Chloride 107 (98-107) mmol/L Carbon Dioxide 27 (21-32) mmol/L Anion Gap 4.0 (3-11) BUN 19 H (7-18) mg/dl Creatinine 1.10 (0.6-1.2) mg/dl Est Cr Clr Drug Dosing 40.4 ml/min Est GFR ( Amer) 53.4 Est GFR (Non-Af Amer) 46.1 BUN/Creatinine Ratio 17.3 (10-20) Glucose 134 H (70-99) mg/dl Calcium 9.6 (8.5-10.1) mg/dl Magnesium 2.2 (1.8-2.4) mg/dl Total Bilirubin 0.3 (0.2-1) mg/dl AST 13 L (15-37) U/L ALT 19 (12-78) U/L Alkaline Phosphatase 82 (45-117) U/L Troponin I < 0.015 (0-0.045) ng/ml Total Protein 7.7 (6.4-8.2) gm/dl Albumin 3.4 (3.4-5.0) gm/dl Globulin 4.3 H (2.5-4.0) gm/dl Albumin/Globulin Ratio 0.8 L (0.9-2) TSH 1.300 (0.300-4.500) uIu/ml Imaging Data Attestation: I personally reviewed and interpreted this imaging study as follows: Radiologist's Impression: XR chest 1V portable CLINICAL HISTORY: atrial fib COMPARISON STUDY: 04/07/2020 FINDINGS: The heart remains enlarged. There is mild central vascular prominence. There are no significant pleural effusions. There are mildly increased basilar markings, atelectatic versus infectious/inflammatory. IMPRESSION: 1. Cardiomegaly and mild vascular prominence 2. Mild basilar opacities, atelectatic versus infectious/inflammatory ACT 112: Negative or not required by law. Electronically signed by: Jasiel Estes M.D. 04/21/2020 12:33 PM Dictated: 04/21/20 1231 Transcribed: 04/21/20 1231 ECG Data Attestation: I personally reviewed and interpreted this ECG as follows: Indication: + palpitations Rate (beats per minute): 132 Rhythm: + atrial fibrillation ECG Intervals/blocks: + Right Bundle branch block ECG Forman: + Left axis deviation ECG ST segments: + repolarization abnormalities ECG Findings: + Q waves (Inferior) and + LVH Blood Pressure Blood Pressure Findings: Normal blood pressure Blood Pressure Disposition: did not require urgent referral MDM Narrative This pt was evaluated and appeared to be in no distress. IV access was obtained and lab work was drawn. An order was placed for cardiac monitoring and pt was found in rapid atrial fib. IV 5 mg metoprolol was administered. CXR was performed and reveals chronic changes and atelectasis. Pt required additional IV metoprolol for rate control for a total 3 doses. Lab work is fairly reassuring. Trop is negative. Pt was advised of the findings. She will be evaluated by the hospitalist service for further management. Impression & Plan Atrial fibrillation with RVR Discharge Plan Visit Data *Final* Discharge Date/Time: 04/21/20 17:53 Chief Complaint: Arrhythmia/Palpitations Stated Complaint: PALPITATUIONS ED Provider: Siobhan Castro Discharge Problem: Atrial fibrillation with RVR Patient Disposition: Admitted As Inpatient Discharge Instructions Interventions: ED Discharge Assessment Last Done: 04/21/20 17:53
[2020-04-22] MEDS: METOPROLOL TARTRATE 100 MG TAB PO SCH (08:03)
[2020-04-22] MEDS: APIXABAN 5 MG TABLET PO SCH (08:05)
[2020-04-22 08:59] LABS: Basophils # (auto) 0.03 K/uL (0-0.2); Basophils % (auto) 0.3 %; Eosinophils # (auto) 0.14 K/uL (0-0.5); Eosinophils % (auto) 1.4 %; Hematocrit (blood only) 40.2 % (37-47); Hemoglobin 12.8 g/dL (12.0-16.0); Immature Granulocytes # (auto) 0.01 K/uL (0.00-0.02); Immature Granulocytes % (auto) 0.1 %; Lymphocytes # (auto) 3.63 K/uL (1.2-3.4); Lymphocytes % (auto) 36.6 %; Mean Corpuscular Hemoglobin 30.2 pg (25-34); Mean Corpuscular Hgb Conc 31.8 g/dL (32-36); Mean Corpuscular Volume 94.8 fL (80-100); Mean Platelet Volume 10.7 fL (7.4-10.4); Monocytes # (auto) 0.52 K/uL (0.11-0.59); Monocytes % (auto) 5.2 %; Neutrophils % (auto) 56.4 %; Platelet Count 246 K/uL (130-400); RDW Coefficient of Variation 13.6 % (11.5-14.5); RDW Standard Deviation 46.9 fL (36.4-46.3); Red Blood Count 4.24 M/uL (4.2-5.4); White Blood Count 9.93 K/uL (4.8-10.8)
[2020-04-22] MEDS ORDERED: CYANOCOBALAMIN 500 MCG TABLET (VITAMIN B-12) PO SCH (09:00)
[2020-04-22] MEDS ORDERED: allopurinoL 100 MG TAB PO SCH (09:00)
[2020-04-22] MEDS ORDERED: TRIAMTERENE/HCTZ 37.5/25MG CAP PO SCH (09:00)
[2020-04-22] MEDS ORDERED: FLECAINIDE ACETATE 100 MG TABLET PO SCH (09:00)
[2020-04-22] MEDS ORDERED: lisinopriL 20 MG TAB PO SCH (09:00)
[2020-04-22 09:35] LABS: BUN Creatinine Ratio 18.3 (10-20); Calcium 9.5 mg/dl (8.5-10.1); Creatinine Clr Calc Pharmacy 27.9 ml/min; Est GFR (African American) 34.7
--- NOTE | 2020-04-22 12:23 | Cardiology Consultation ---
Date of Consultation April 22, 2020 Assessment & Plan (1) Atrial fibrillation with RVR: She presents once again with atrial fibrillation with a rapid heart rate, she converted to sinus rhythm at 730 last evening. According to the records she received flecainide about 1/2-hour after that (I believe) so this was also spontaneous conversion. She feels poorly however and with this many trips to the emergency room I think we need to try to maintain sinus rhythm. Despite her conduction abnormalities as noted below I would continue flecainide at the 50 mg twice a day dose. Her QT interval is slightly prolonged however not excessive and she has had no pro arrhythmias identified. I think it is safe to send her home today on this dose. 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 We need to watch for heart block, especially on flecainide, but her NH interval is not increased and she did not have AV block with the 100 mg dose of flecainide she received last evening. It should be safe to send her home on 50 mg twice a day. In the future she could certainly have progression and need a pacemaker and this will need to be kept in mind. I would not do anything with it now however. (3) Sinus bradycardia: She has sinus bradycardia, this could be a component of sick sinus syndrome or perhaps it is all medication related. I would continue beta-shara at the current dose as long as she can tolerate it until we see whether she has further episodes of atrial fibrillation, this is quite likely as these medications are not terribly effective and she is on a low dose. (4) Anticoagulant long-term use: She needs to remain on an anticoagulant and I think Eliquis is a good choice. History of Present Illness Reason for Consultation: Atrial fibrillation with rapid ventricular response Attending Physician: Dominik Garcia MD History of Present Illness This is an 85-year-old woman with a history of hypertension and dyslipidemia who developed palpitations on January 30, 2020 and presented to the emergency room in atrial fibrillation with a rapid ventricular response. In the emergency room her rhythm converted to sinus and she remained in sinus overnight. She was anticoagulated due to a [id number] score of 4 and her metoprolol was increased to 100 mg twice daily however she had sinus bradycardia in the 50s and it was decreased to 75 mg twice a day. An echocardiogram done at that time showed normal left ventricular size and function with mild concentric left ventricular hypertrophy and an ejection fraction of 55 to 60%. She was discharged the next day on January 31, 2020. She then presented to the emergency room on April 07, 2020 with similar symptoms and once again was in atrial fibrillation with a rapid heart rate. She once again converted to sinus rhythm. Her metoprolol was increased to 200 mg twice a day. She presents now with another episode of atrial fibrillation, her heart rate was once again elevated and she felt very poorly during the arrhythmia. By electrocardiogram her heart rate was 132 bpm in the emergency room. I had discussed her case with Dr. Almazan yesterday and we elected to try flecainide, this often works well for paroxysmal atrial arrhythmias. We therefore gave her 100 mg dose yesterday and started 50 mg twice a day. Her electrocardiogram from April 21, 2020 at 11:50 AM shows atrial fibrillation with a heart rate of 132 bpm with bifascicular block (left anterior fascicular block and right bundle branch block). An electrocardiogram done this morning at 7:26 AM shows sinus bradycardia at 54 bpm with left anterior fascicular block, right bundle branch block and a QRS duration 136 ms. The QTC is 479 ms, this is on flecainide. In comparison on April 07, 2020 before starting flecainide her QTC was 460 ms during sinus rhythm, her QRS duration was identical at 138 ms. She describes feeling poorly when she goes into atrial fibrillation and is very aware of what it terminates. Now that she is back in sinus rhythm (her arrhythmia terminated at 730 last evening) she feels well and feels that she would like to go home. She has had no cardiovascular complaints following termination of the arrhythmia. Allergies Allergy/AdvReac Type Severity Reaction Status Date / Time No Known Allergies Allergy Verified 04/21/20 12:40 Home Medications Home Medications Medication Instructions Recorded Confirmed Type triamterene 37.5 1 cap PO DAILY #90 cap 10/25/19 04/21/20 Rx mg-hydrochlorothiazide 25 mg capsule lisinopril 20 mg tablet 20 mg PO DAILY #90 tab 11/02/19 04/21/20 Rx cyanocobalamin (vitamin B-12) 1,000 mcg PO DAILY tab 11/21/19 04/21/20 History 1,000 mcg tablet potassium chloride 8 mEq 8 meq PO DAILY #30 tab 12/13/19 04/21/20 Rx tablet,extended release allopurinol 100 mg tablet 100 mg PO DAILY #30 tab 01/19/20 04/21/20 Rx ergocalciferol (vitamin D2) 50,000 units PO WK 01/29/20 04/21/20 History fluticasone propionate [Flonase 2 sprays INTNAS DAILY PRN 01/29/20 04/21/20 History Allergy Relief] furosemide 20 mg tablet 10 mg PO DAILY PRN #90 tab 02/28/20 04/21/20 Rx metoprolol tartrate 100 mg tablet 100 mg PO BID 90 Days #180 tab 04/11/20 0 04/21/20 Rx apixaban 5 mg tablet 5 mg PO BID #60 tab 04/18/20 04/21/20 Rx Patient History Medical History Cyst of breast Lichen sclerosus et atrophicus Nephrolithiasis Surgical History H/O colonoscopy History of kidney surgery S/P cholecystectomy S/P tubal ligation Family History Aunt Breast cancer maternal Grandmother (Maternal) Breast cancer Mother Cervical cancer Varicose veins of both lower extremities Brother Coronary heart disease Father Tetanus Denies family history of Ovarian cancer Prostate cancer Colorectal cancer Social History Preferred Language: [place] Communication Ability: Effective Hearing Ability: Normal 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 HEENT: Unremarkable Neck: No jugular venous distention, carotid pulses are normal and equal bilaterally without bruits. Pulmonary: Clear to auscultation bilaterally. Cardiac: Regular rhythm with no murmur, gallop or rub. Abdomen: Soft, nontender with normal bowel sounds. Extremities: No edema. Distal pulses intact. Neurologic: No focal findings. Gait is steady. Skin: No rash, ecchymoses or petechiae. Results & Data ([facility]) Vital Signs (Past 12 Hours) Vital Signs Temp Pulse Resp BP Pulse Ox 04/22/20 11:51 36.5 C 56 L 18 124/63 92 04/22/20 07:55 36.5 C 56 L 18 107/64 95 04/22/20 03:20 36.4 C L 54 L 19 101/64 95 Laboratory Results Cardiac Enzymes 04/21/20 Range/Units 12:22 AST 13 L (15-37) U/L Troponin I < 0.015 (0-0.045) ng/ml CBC 04/22/20 Range/Units 08:43 WBC 9.93 (4.8-10.8) K/uL RBC 4.24 (4.2-5.4) M/uL Hgb 12.8 (12.0-16.0) g/dL Hct 40.2 (37-47) % Plt Count 246 (130-400) K/uL Neut # (Auto) 5.60 (1.4-6.5) K/uL Lymph # (Auto) 3.63 H (1.2-3.4) K/uL [place] # (Auto) 0.52 (0.11-0.59) K/uL Eos # (Auto) 0.14 (0-0.5) K/uL Baso # (Auto) 0.03 (0-0.2) K/uL Comprehensive Metabolic Panel 04/21/20 04/22/20 Range/Units 12:22 08:43 Sodium 138 138 (136-145) mmol/L Potassium 4.0 4.0 (3.5-5.1) mmol/L Chloride 107 104 (98-107) mmol/L Carbon Dioxide 27 29 (21-32) mmol/L BUN 19 H 29 H D (7-18) mg/dl Creatinine 1.10 1.57 H D (0.6-1.2) mg/dl Glucose 134 H 175 H (70-99) mg/dl Calcium 9.6 9.5 (8.5-10.1) mg/dl AST 13 L (15-37) U/L ALT 19 (12-78) U/L Alkaline Phosphatase 82 (45-117) U/L Total Protein 7.7 (6.4-8.2) gm/dl Albumin 3.4 (3.4-5.0) gm/dl Intake and Output 04/21/20 04/22/20 04/22/20 22:59 06:59 14:59 Intake Total 100 / 100 Balance 100 / 100 Intake: Oral 100 / 100 Other: Other Intake Source sips # Unmeasured Voids 2 Weight 96.3 kg 93.7 kg PG Care Time/CCT Total # of Minutes Spent Total Time Spent with Patient: Total time spent is greater than 50% in wellness program coordinator rdination of care (as documented) at patient's floor/unit and/or counseling patient: Coding Level of Care Code 83014 Initial Inpt Care Lvl 3 Diagnoses Atrial fibrillation with RVR I48.91 Bifascicular bundle branch block I45.2 Sinus bradycardia R00.1 Anticoagulant long-term use Z79.01
--- NOTE | 2020-04-22 14:19 | Discharge Summary ---
Date of Service April 22, 2020 Admission HPI Per Admitting Provider Aaliyah Leiva is an 85 year old female with known paroxysmal atrial fibrillation who presents to the ER after feeling suddenly fatigued this morning around 10:30am and noticing her heart was elevated again. She felt the same way with some mild shortness of breath on exertion and fatigue on prior occasions when she was in atrial fibrillation. On previous occasions she has converted after a dose of metoprolol 5mg IV or generally the goal has been increasing her metoprolol to the point where she is now taking 100mg BID. She saw Dr Garrido on one of her prior hospitalizations however does not follow with cardiology as an outpatient. On one prior occasion in the ER she converted with just putting in the IV line. She denies any palpitations, chest pain, claudication, presyncope or syncope. Principal Diagnosis A fib RVR Discharge Exam Constitutional WD/WN, vitals as above Respiratory normal respiratory effort, lungs clear to auscultation Cardiovascular RRR, no murmur, no edema Gastrointestinal (Abdomen) Inspection/Auscultation: abdomen normal to inspection and normal bowel sounds; abdomen not distended Percussion/Palpation: abdomen soft; abdomen nontender Musculoskeletal no cyanosis or clubbing, extremities motor strength 5/5 Skin no rashes, warm and dry Neurologic moves all extremities and awake Psychiatric A+Ox3, euthymic affect Discharge Data Allergies Allergy/AdvReac Type Severity Reaction Status Date / Time No Known Allergies Allergy Verified 04/21/20 12:40 Consultations 04/22/20 11:51 Consult Cardiology Routine Hospital Course (1) Atrial fibrillation with RVR: Discussed with Dr De Paz - initiated Flecainide therapy which patient is tolerating well. She spontaneously converted to SR last evening just after taking first dose of flecainide. Today she is generally in a SB though with occasional atrial fibrillation. Her heart rate remained stable with ambulation in the halls which she tolerated well. 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 Patient had been unaware of this diagnosis as she had not yet followed up with her pcp. I did discuss the results with her and she will follow up with her pcp after discharge. (3) Hypertension: Continue metoprolol 100mg BID Continue triamterene/HCTZ Monitor for hypotension with addition of flecainide (4) Primary gout: Continue allopurinol 100mg PO daily (5) DVT prophylaxis: Continue apixaban Total Time Total Time Spent Total Time Spent (In Minutes): greater than 30 minutes Discharge Plan Discharge Items Patient Disposition: Home - Self-Care Reason For Visit: AFIB WITH RVR Discharge Diagnosis: Atrial fibrillation with rapid ventricular response Activity: Resume your previous activity Activity Comment: gradually as tolerated Non-emergency contact: Primary Care Provider Call non-emergency contact if: you have any medication questions Follow-up/Referrals: Cordell De Paz MD [Physician] - (Please follow up with Dr. De Paz's office in about a month ) Scott Kessler III, MD [Primary Care Provider] - (Follow up with your primary care provider within a week ) Diet: Heart Healthy Addtl Attending Provider Instructions: (1) Atrial fibrillation with RVR: You will return home with a prescription for flecainide. 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 As we discussed, your primary care provider is aware of this and has been in contact with [facility] concerning further work up. Additionally, as we discussed earlier today, if your condition does prove to be follicular thyroid cancer is a very treatable condition. Your doctor will talk with you more about this at your follow up appointment. (3) Hypertension: Continue metoprolol 100mg BID Continue triamterene/HCTZ Monitor for hypotension with addition of flecainide You should take your blood pressure with a home blood pressure machine every day at different times of the day after sitting quietly for five minutes. You should keep a log of your blood pressures to bring with you to your primary care provider. Call your primary care provider if your blood pressure is consistently below 100 for the top number or if you are getting dizzy or lightheaded as your medications may need to be adjusted. (4) Primary gout: Continue allopurinol 100mg PO daily Pending Studies at Discharge: No Stand-Alone Forms: [employer], Smoking Cessation Medications and DC Order Prescriptions: New flecainide 100 mg Tablet 50 mg PO BID Qty: 30 RF: 1 Continued triamterene-hydrochlorothiazid 37.5-25 mg capsule 1 cap PO DAILY Qty: 90 RF: 3 lisinopril 20 mg tablet 20 mg PO DAILY Qty: 90 RF: 3 potassium chloride [Klor-Con 8] 8 mEq tablet extended release 8 meq PO DAILY Qty: 30 RF: 5 allopurinol 100 mg tablet 100 mg PO DAILY Qty: 30 RF: 5 furosemide 20 mg tablet 10 mg PO DAILY PRN (Reason: SOB OR SWELLING) Qty: 90 RF: 3 Eliquis 5 mg tablet 5 mg PO BID Qty: 60 RF: 5 metoprolol tartrate 100 mg tablet 100 mg PO BID 90 Days Qty: 180 RF: 3 cyanocobalamin (vitamin B-12) 1,000 mcg tablet 1,000 mcg PO DAILY RF: 0 ergocalciferol (vitamin D2) 1,250 mcg (50,000 unit) capsule 50,000 units PO WK RF: 0 fluticasone propionate [Flonase Allergy Relief] 50 mcg/actuation spray,suspension 2 sprays INTNAS DAILY PRN (Reason: Congestion) RF: 0 Discharge Orders: Discharge Order (Routine); Ordered 04/22/20 Ordered By: Ariana Genao/Other Patient Handouts: Flecainide tablets Admission Data Admit Date/Time: 04/21/20 16:21 Attending Provider: Dominik Garcia Admit Provider: Micah Almazan Primary Care Provider: Scott Kessler III Other Providers: Cordell De Paz Coding Level of Care Code D/C Day Management >30 mins Diagnoses Atrial fibrillation with RVR I48.91 Follicular thyroid cancer C73 Hypertension I10 Hypertension type: essential hypertension Primary gout M10.00 DVT prophylaxis Z29.9
[2020-04-26] MEDS ORDERED: ERGOCALCIFEROL 50,000 UNITS CAP PO SCH (09:00)
== END 2020-04-22 15:08 | disposition home or self-care (01) | DRG 310 ==
LOC: ED 11:42 → SUATTDRO 16:21 → 2N 16:21

== ENCOUNTER 2022-02-11 11:08 | Inpatient (IN) ==
--- NOTE | 2022-02-11 12:27 | XRay Report ---
XR chest 1V portable CLINICAL HISTORY: Dyspnea. COMPARISON STUDY: 10/29/2021 TECHNIQUE: 1 view of the chest FINDINGS: Single frontal view of the chest demonstrates the heart size to again be enlarged with permanent card iac pacer in place. Compared to previous study, there is a decreased inspiratory effort with elevatio n of hemidiaphragms and evidence of small bilateral effusions. Minimal bibasilar atelectasis is also present. The lungs are otherwise clear of alveolar opacities. There is no evidence for vascular conge stion . There is no acute osseous pathology. IMPRESSION: 1. Decreased inspiration with interval development of small bilateral pleural effusions and bibasilar atelectasis. ACT 112: Negative or not required by law. Electronically signed by: Jason Sykes M.D. 02/11/2022 12:26 PM
[2022-02-11 12:28] LABS: Basophils # (auto) 0.02 K/uL (0-0.2); Basophils % (auto) 0.2 %; Eosinophils # (auto) 0.09 K/uL (0-0.5); Hematocrit (blood only) 38.6 % (37-47); Immature Granulocytes # (auto) 0.02 K/uL (0.00-0.02); Immature Granulocytes % (auto) 0.2 %; Lymphocytes # (auto) 1.65 K/uL (1.2-3.4); Lymphocytes % (auto) 18.4 %; Mean Corpuscular Hemoglobin 30.2 pg (25-34); Mean Corpuscular Hgb Conc 31.1 g/dL (32-36); Mean Platelet Volume 10.5 fL (7.4-10.4); Monocytes # (auto) 0.48 K/uL (0.11-0.59); Monocytes % (auto) 5.3 %; Neutrophils # (auto) 6.72 K/uL (1.4-6.5); Neutrophils % (auto) 74.9 %; Platelet Count 195 K/uL (130-400); RDW Coefficient of Variation 14.5 % (11.5-14.5); RDW Standard Deviation 51.4 fL (36.4-46.3); Red Blood Count 3.98 M/uL (4.2-5.4); White Blood Count 8.98 K/uL (4.8-10.8)
[2022-02-11 13:04] LABS: Albumin Globulin Ratio 1.1 (0.9-2); BUN Creatinine Ratio 21.8 (10-20); Bilirubin,Total 0.7 mg/dl (0.2-1.0); Calcium 9.8 mg/dl (8.5-10.1); Creatinine Clr Calc Pharmacy 41.8 ml/min; Est GFR (Non-African American) 45.7 ml/min; Globulin 3.5 gm/dl (2.5-4.0); Potassium 3.7 mmol/L (3.5-5.1); Total Protein 7.5 gm/dl (6.0-8.3)
[2022-02-11] MEDS ORDERED: FUROSEMIDE 40 MG/4 ML VIAL IV ONE (13:55)
--- NOTE | 2022-02-11 14:43 | Emergency Department Note ---
History of Present Illness General Chief complaint: Shortness of Breath/Dyspnea Stated complaint: SOB Time Seen by Provider: 02/11/22 12:04 Source: patient Mode of arrival: wheelchair Limitations: no limitations History of Present Illness Provider complaint: Shortness of breath, increased swelling Onset (ago): day(s) 2 Exacerbated By: + movement Associated symptoms: + shortness of breath; no chest pain, no cough, no fever/chills, no malaise or no nausea/vomiting Treatments prior to arrival: none This is an 86-year-old female presents emergency department complaining of increased shortness of breath and lower extremity swelling. Patient states she began noticing increased difficulty laying flat to sleep several nights ago and began sitting up. She also noted she was more winded than her usual with walking around. Patient states she then noted the chronic swelling in her legs was not improved in the morning when she would get up. Patient states she does take a diuretic daily, 40 mg of furosemide. No recent change or missed/skip doses. at bedside states she has been drinking a lot of water recently. She denies any increased intake of salty foods or other dietary indiscretion. Patient denies fevers, cough, or other URI symptoms. She denies chest pain or trouble breathing. Patient does have a history of paroxysmal atrial fibrillation and sick sinus syndrome, she does have an indwelling cardiac pacemaker and is anticoagulated. Patient states she follows with Dr. De Paz. Patient denies any history of CHF. Patient states once previously she did need to increase her furosemide dosing for 3 or 4 days when she had extra fluid. Pt seen during a time of high acuity and national emergency pandemic while wearing PPE. Home Medications Medication Instructions Recorded Confirmed Type cyanocobalamin (vitamin B-12) 1,000 mcg PO QAM tab 11/21/19 02/11/22 History 1,000 mcg tablet metoprolol tartrate 100 mg tablet 100 mg PO BID #180 tab 10/24/21 02/11/22 Rx apixaban 5 mg tablet (Eliquis) 5 mg PO BID #60 tab 10/29/21 02/11/22 Rx Incentive Spirometer #1 ea 01/30/22 01/30/22 Rx allopurinol 100 mg tablet 100 mg PO QAM 02/11/22 02/11/22 History atorvastatin 10 mg tablet 10 mg PO QAM 02/11/22 02/11/22 History diltiazem HCl 180 mg 180 mg PO QAM 02/11/22 02/11/22 History capsule,extended release 24 hr furosemide 20 mg tablet 40 mg PO QAM 02/11/22 02/11/22 History lisinopril 20 mg tablet 20 mg PO QAM 02/11/22 02/11/22 History potassium chloride 8 mEq 8 meq PO QAM 02/11/22 02/11/22 History tablet,extended release (Klor-Con) Allergies Allergy/AdvReac Type Severity Reaction Status Date / Time No Known Allergies Allergy Verified 02/11/22 14:51 Past Med/Surg History Medical History (Updated 02/12/22 @ 15:16 by Alejandrina Bravo PA-C) Chronic diastolic CHF (congestive heart failure) Chronic kidney disease, stage 3a Cyst of breast GERD (gastroesophageal reflux disease) Hyperlipidemia Hypertension Idiopathic polyneuropathy Lichen sclerosus et atrophicus Nephrolithiasis Paroxysmal atrial fibrillation Thyroid nodule (03/2020) left sided, FNA suspicious for follicular neoplasm Vitamin D deficiency Surgical History H/O colonoscopy History of cataract surgery History of dilation and curettage History of kidney surgery History of permanent cardiac pacemaker placement S/P cholecystectomy S/P tubal ligation Family History Aunt Breast cancer maternal Grandmother (Maternal) Breast cancer Mother Cervical cancer Varicose veins of both lower extremities Heart disease Cancer Hypertension Hearing loss Myocardial infarction Brother Coronary heart disease Myocardial infarction Father Tetanus Denies family history of Ovarian cancer Prostate cancer Lung cancer Colorectal cancer Social History (Updated 02/11/22 @ 15:54 by Micah Salazar) Smoking Status: Never smoker Second Hand Exposure: No; Hx Alcohol Use: No Hx Substance Use: No Preferred Language: Azeri Communication Ability: Effective Hearing Ability: Normal Director Of Vocational Guidance Required: No Beliefs That Will Affect Care: None marital status: Current Living Situation: Spouse Current Living Situation Comment: lives in [place] current occupational status: retired current occupation: worked in grocery stores, retail How many Children do You have: 3 Feels Safe at Home: Yes Childhood Exposure to Second-Hand Smoke: Yes (Mother smoked) caffeine: Yes Dental Care, Regularly: Yes Physical Activity Frequency: Does not Exercise Seatbelt Use: sometimes Sunscreen Use: Yes Assistive Devices: Cane Review of Systems A total of 10 systems reviewed and were otherwise negative All systems reviewed & are unremarkable except as noted in HPI & below Physical Exam Vital Signs Vital Signs - 24 hr 02/11/22 11:15 02/11/22 12:30 02/11/22 12:57 Temperature 36.5 C Temperature Source Temporal Artery Scan Pulse Rate 96 H Pulse Rate [Finger] 78 Respiratory Rate 18 Respiratory Rate [Exercises] Respiratory Effort / Characteristics Non-Labored Spontaneous Respiratory Depth Normal Respiratory Pattern Regular Blood Pressure 163/94 H Blood Pressure [Right Arm] 167/74 H Blood Pressure Mean 117 Blood Pressure Mean [Right Arm] 105 Blood Pressure Position Sitting Blood Pressure Position [Right Arm] Lying Pulse Oximetry 91 93 92 Pulse Oximetry [Exercises] Oxygen Delivery Method Room Air Room Air Room Air Sepsis Recent Fever Within 48 Hours No Sepsis New/Unexplained Change in Mental Status N/A Sepsis Action Taken by Nursing No Action Required 02/11/22 14:29 Temperature Temperature Source Pulse Rate Pulse Rate [Finger] Respiratory Rate Respiratory Rate [Exercises] 26 H Respiratory Effort / Characteristics Respiratory Depth Respiratory Pattern Blood Pressure Blood Pressure [Right Arm] Blood Pressure Mean Blood Pressure Mean [Right Arm] Blood Pressure Position Blood Pressure Position [Right Arm] Pulse Oximetry Pulse Oximetry [Exercises] 84 L Oxygen Delivery Method Room Air Sepsis Recent Fever Within 48 Hours Sepsis New/Unexplained Change in Mental Status Sepsis Action Taken by Nursing GENERAL: alert, uncomfortable appearing, well nourished, no distress, non-toxic EYE EXAM: normal conjunctiva, PERRL and EOM's grossly intact OROPHARYNX: no exudate, no erythema, lips, buccal mucosa, and tongue normal and mucous membranes are moist NECK: supple, no nuchal rigidity, no adenopathy, non-tender LUNGS: Clear to auscultation. Normal chest wall mechanics, no w/r, faint bibasilar Rales HEART: no murmurs, S1 normal and S2 normal ABDOMEN: abdomen soft, non-tender, normo-active bowel sounds, no masses, no rebound or guarding. BACK: Back is symmetrical on inspection and there is no deformity, no midline tenderness, no CVA tenderness. SKIN: no rashes and no bruising UPPER EXTREMITIES: upper extremities are grossly normal. FROM, nml pulses b/l. LOWER EXTREMITIES: 2+ b/l pitting edema. FROM, nml pulses b/l. NEURO EXAM: Normal sensorium, cranial nerves II-XII grossly intact, normal speech, no gross weakness of arms, no gross weakness of legs. Gross sensation intact. Course Administered Medications Allopurinol (Allop[facility]ol 100 Mg Tab) [facility] [place] Stop: 03/14/22 08:59 Last Admin: 02/12/22 07:37 Dose: 100 mg Documented by: [id number] Apixaban (Apixaban 5 Mg Tablet) 5 mg PO BID [facility] Stop: 03/13/22 20:59 Last Admin: 02/12/22 07:38 Dose: 5 mg Documented by: [id number] Admin: 02/11/22 20:46 Dose: 5 mg Documented by: [id number] Atorvastatin Calcium (Atorvastatin 10 Mg Tab) 10 mg PO [facility] Stop: 03/14/22 08:59 Last Admin: 02/12/22 07:37 Dose: 10 mg Documented by: [id number] Cyanocobalamin (Cyanocobalamin (B-12) 500 Mcg Tablet) 1,000 mcg PO [facility] Stop: 03/14/22 08:59 Last Admin: 02/12/22 07:37 Dose: 1,000 mcg Documented by: [id number] Diltiazem HCl (Diltiazem Hcl 180 Mg Capcr) 180 mg PO [facility] Stop: 03/14/22 08:59 Last Admin: 02/12/22 07:37 Dose: 180 mg Documented by: [id number] Furosemide (Furosemide 40 Mg/4 Ml Vial) 40 mg IV [facility] Stop: 03/14/22 08:59 Last Admin: 02/12/22 07:38 Dose: 40 mg Documented by: [id number] Lisinopril (Lisinopril 20 Mg Tab) 20 mg PO [facility] Stop: 03/14/22 08:59 Last Admin: 02/12/22 07:37 Dose: 20 mg Documented by: [id number] Metoprolol Tartrate (Metoprolol Tartrate 100 Mg Tab) 100 mg PO BID [facility] Stop: 03/13/22 20:59 Last Admin: 02/12/22 07:37 Dose: 100 mg Documented by: [id number] Admin: 02/11/22 20:46 Dose: 100 mg Documented by: [id number] Nystatin (Nystatin Powder 15gm Btl) 1 appln EXT TID KEN Stop: 03/13/22 20:59 Last Admin: 02/12/22 13:26 Dose: 1 appln Documented by: [id number] Admin: 02/12/22 07:38 Dose: 1 appln Documented by: [id number] Admin: 02/11/22 20:45 Dose: 1 appln Documented by: [id number] Discontinued Medications Furosemide (Furosemide 40 Mg/4 Ml Vial) 40 mg IV ONE ONE Stop: 02/11/22 13:56 Last Admin: 02/11/22 14:09 Dose: 40 mg Documented by: [id number] Perflutren Lipid Microsphere (Perflutren Lipid Microsphere (Definity)) 2 ml IV ONCE ONE Stop: 02/12/22 07:00 Last Admin: 02/12/22 07:00 Dose: 2 ml Documented by: [id number] Medical Decision Making Differential Diagnosis Differential diagnoses includes but is not limited to pneumonia, bronchitis, COPD/Asthma exacerbation, pneumothorax, pulmonary embolism, congestive heart failure, acute coronary syndrome Medical Records Attestation: I reviewed the patient's medical records. Home Medications Current Medication List: was personally reviewed by me Laboratory Data Attestation: I reviewed the patient's lab results. Result diagrams: 02/11/22 12:15 02/12/22 07:11 Lab Results 02/11/22 02/11/22 02/11/22 Range/Units 12:15 12:15 12:15 WBC 8.98 (4.8-10.8) K/uL RBC 3.98 L (4.2-5.4) M/uL Hgb 12.0 (12.0-16.0) g/dL Hct 38.6 (37-47) % MCV 97.0 (80-100) fL MCH 30.2 (25-34) pg MCHC 31.1 L (32-36) g/dL RDW Std Deviation 51.4 H (36.4-46.3) fL RDW Coeff of Toney 14.5 (11.5-14.5) % Plt Count 195 (130-400) K/uL MPV 10.5 H (7.4-10.4) fL Immature Gran % (Auto) 0.2 % Neut % (Auto) 74.9 % Lymph % (Auto) 18.4 % Upson % (Auto) 5.3 % Eos % (Auto) 1.0 % Baso % (Auto) 0.2 % Neut # (Auto) 6.72 H (1.4-6.5) K/uL Lymph # (Auto) 1.65 (1.2-3.4) K/uL Upson # (Auto) 0.48 (0.11-0.59) K/uL Eos # (Auto) 0.09 (0-0.5) K/uL Baso # (Auto) 0.02 (0-0.2) K/uL Immature Gran # (Auto) 0.02 (0.00-0.02) K/uL Sodium 144 (136-145) mmol/L Potassium 3.7 (3.5-5.1) mmol/L Chloride 106 (98-107) mmol/L Carbon Dioxide 28 (21-32) mmol/L Anion Gap 10 (3-11) BUN 24 H (6-23) mg/dl Creatinine 1.10 (0.6-1.2) mg/dl Est Cr Clr Drug Dosing 41.8 ml/min Est GFR ( Amer) 53.0 ml/min Est GFR (Non-Af Amer) 45.7 ml/min BUN/Creatinine Ratio 21.8 H (10-20) Glucose 124 H (70-99(Fasting)) mg/dl Calcium 9.8 (8.5-10.1) mg/dl Total Bilirubin 0.7 (0.2-1.0) mg/dl AST 16 (13-39) U/L ALT 10 (7-52) U/L Alkaline Phosphatase 93 (34-104) U/L Troponin I < 0.03 (0-0.04) ng/ml B-Natriuretic Peptide (0-100) pg/ml Total Protein 7.5 (6.0-8.3) gm/dl Albumin 4.0 (3.4-5.0) gm/dl Globulin 3.5 (2.5-4.0) gm/dl Albumin/Globulin Ratio 1.1 (0.9-2) Urine Color Urine Appearance (Clear) Urine pH (4.5-7.5) Ur Specific [place] (1.000-1.030) Urine Protein (Negative) Urine Glucose (UA) (Negative) Urine Ketones (Negative) Urine Blood (Negative) Urine Nitrite (Negative) Urine Bilirubin (Negative) Urine Urobilinogen (Negative) Ur Leukocyte Esterase (Negative) Urine WBC (Auto) (0-5) /hpf Urine RBC (Auto) (0-4) /hpf U Hyaline Cast (Auto) (0-5) /lpf U Epithel Cells (Auto) (0-5) /lpf Urine Bacteria (Auto) (Negative) Urine Yeast SARS-CoV-2 (PCR) (Negative) Influenza Type A (PCR) (Neg) Influenza Type B (PCR) (Neg) RSV (RT-PCR) (Neg) 02/11/22 02/11/22 02/11/22 Range/Units 12:53 15:15 16:00 WBC (4.8-10.8) K/uL RBC (4.2-5.4) M/uL Hgb (12.0-16.0) g/dL Hct (37-47) % MCV (80-100) fL MCH (25-34) pg MCHC (32-36) g/dL RDW Std Deviation (36.4-46.3) fL RDW Coeff of Toney (11.5-14.5) % Plt Count (130-400) K/uL MPV (7.4-10.4) fL Immature Gran % (Auto) % Neut % (Auto) % Lymph % (Auto) % Upson % (Auto) % Eos % (Auto) % Baso % (Auto) % Neut # (Auto) (1.4-6.5) K/uL Lymph # (Auto) (1.2-3.4) K/uL Upson # (Auto) (0.11-0.59) K/uL Eos # (Auto) (0-0.5) K/uL Baso # (Auto) (0-0.2) K/uL Immature Gran # (Auto) (0.00-0.02) K/uL Sodium (136-145) mmol/L Potassium (3.5-5.1) mmol/L Chloride (98-107) mmol/L Carbon Dioxide (21-32) mmol/L Anion Gap (3-11) BUN (6-23) mg/dl Creatinine (0.6-1.2) mg/dl Est Cr Clr Drug Dosing ml/min Est GFR ( Amer) ml/min Est GFR (Non-Af Amer) ml/min BUN/Creatinine Ratio (10-20) Glucose (70-99(Fasting)) mg/dl Calcium (8.5-10.1) mg/dl Total Bilirubin (0.2-1.0) mg/dl AST (13-39) U/L ALT (7-52) U/L Alkaline Phosphatase (34-104) U/L Troponin I (0-0.04) ng/ml B-Natriuretic Peptide 394 H (0-100) pg/ml Total Protein (6.0-8.3) gm/dl Albumin (3.4-5.0) gm/dl Globulin (2.5-4.0) gm/dl Albumin/Globulin Ratio (0.9-2) Urine Color Yellow Urine Appearance Clear (Clear) Urine pH 5.5 (4.5-7.5) Ur Specific [place] 1.007 (1.000-1.030) Urine Protein Negative (Negative) Urine Glucose (UA) Negative (Negative) Urine Ketones Negative (Negative) Urine Blood Negative (Negative) Urine Nitrite Negative (Negative) Urine Bilirubin Negative (Negative) Urine Urobilinogen Negative (Negative) Ur Leukocyte Esterase Trace H (Negative) Urine WBC (Auto) 1-5 (0-5) /hpf Urine RBC (Auto) 0-4 (0-4) /hpf U Hyaline Cast (Auto) 0 (0-5) /lpf U Epithel Cells (Auto) 20-30 H (0-5) /lpf Urine Bacteria (Auto) Negative (Negative) Urine Yeast Not Reportable SARS-CoV-2 (PCR) NEGATIVE (Negative) Influenza Type A (PCR) Negative (Neg) Influenza Type B (PCR) Negative (Neg) RSV (RT-PCR) Negative (Neg) Imaging Data Radiologist's Impression: Chest X-Ray 02/11/22 11:19 XR chest 1V portable CLINICAL HISTORY: Dyspnea. COMPARISON STUDY: 10/29/2021 TECHNIQUE: 1 view of the chest FINDINGS: Single frontal view of the chest demonstrates the heart size to again be enlarged with permanent cardiac pacer in place. Compared to previous study, there is a decreased inspiratory effort with elevation of hemidiaphragms and evidence of small bilateral effusions. Minimal bibasilar atelectasis is also present. The lungs are otherwise clear of alveolar opacities. There is no evidence for vascular congestion . There is no acute osseous pathology. IMPRESSION: 1. Decreased inspiration with interval development of small bilateral pleural effusions and bibasilar atelectasis. ACT 112: Negative or not required by law. Electronically signed by: Jason Sykes M.D. 02/11/2022 12:26 PM ECG Data Attestation: I personally reviewed and interpreted this ECG as follows: Indication: + SOB/dyspnea Rate (beats per minute): 110 Rhythm: + atrial fibrillation ECG Intervals/blocks: + Right Bundle branch block and + Normal QT ECG Bladen: + Left axis deviation ECG ST segments: + Nonspecific ST abnormalities MDM Narrative This is an 86-year-old female with a history of CHF who presents due to concern for increased dyspnea particular with exertion as well as bilateral lower extremity edema. Patient does take a diuretic daily although admits to increased water intake over the last several days. Patient was hemodynamically stable and not hypoxic at rest. Labs drawn and sent, x-ray imaging and EKG performed. I did review patient's last echo as seen in the EMR which did show a reasonable LVEF. Patient is anticoagulated due to history of atrial fibrillation. Patient had an elevated BNP, evidence of pleural effusions on chest x-ray, and quickly desaturated into the 80s with any attempted exertion. Patient was given additional IV furosemide while in the emergency room and case discussed with hospitalist for additional evaluation and management. An order was placed for continuous cardiac monitoring. The monitor shows a rate of _88__ with _a.fib_ rhythm. Impression & Plan Dyspnea, Bilateral edema of lower extremity, CHF (congestive heart failure) Discharge Plan Visit Data Chief Complaint: Shortness of Breath/Dyspnea Stated Complaint: SOB ED Provider: Sybil Jackson Discharge Problem: Dyspnea, Bilateral edema of lower extremity, CHF (congestive heart failure) Patient Disposition: Admitted As Inpatient Discharge Instructions Interventions: ED Discharge Assessment Last Done: 02/11/22 17:51 Discharge Problem: Dyspnea Qualifiers: Dyspnea type: dyspnea on exertion Qualified Code(s): R06.00 - Dyspnea, unspecified
--- NOTE | 2022-02-11 15:19 | History & Physical Report ---
Date of Service February 11, 2022 Assessment & Plan (1) Acute on chronic diastolic (congestive) heart failure: Plan: Patient presents volume overloaded. Last echo was in January 2020. Follows with [facility]. Possible reasons for decompensation include poorly controlled a.fib, dietary indiscretion, worsening LV function, etc. Received 40mg of IV lasix in the ER. Will follow her response to such tonight, then resume 40mg IV daily in am. She could need BID dosing. Consult [facility] CHF team, Ms Ofelia TORRES. Obtain new echo. Place on telemetry. Will obtain a pacemaker interrogation - last was in 10/2021; assess a.fib burden as well as a.fib rates. Continue metoprolol 100mg BID. (2) Acute respiratory failure with hypoxia: Plan: 2nd to decompensated CHF. Infectious causes/pneumonia felt much less likely. Diurese. Check COVID/RSV/flu swab. NC O2 to maintain sats >92%. (3) Status post placement of cardiac pacemaker: Plan: for SSS. follows with Dr Cordell De Paz, [facility]. pacemaker interrogation in am requested. (4) Atrial fibrillation: Plan: patient presented with mild rapid a.fib. Rates already improved since arrival. Cont BB. Cont CCB. Cont Eliquis 5mg BID (although she is 86yo she meets criteria for the 5mg based on weight & renal Fx). Pacemaker interrogation requested to check a.fib burden (last office visit suggested that she likely has permanent a.fib as opposed to PAF). Place on telemetry. (5) Chronic kidney disease, stage 3a: Plan: baseline CrCl 40s bmp daily while being diuresed (6) Hyperlipidemia: Plan: cont statin agent (7) Hypertension: Plan: BPs mildly high upon presentation. Improved s/p lasix IV and resumption of typical meds. Cont CCB, BB, and lisinopril. (8) Candidal diaper rash: Plan: nystatin powder TID to groin, skin folds, etc (9) Primary gout: Plan: no flare at this time cont allopurinol prophylaxis (10) DVT prophylaxis: Plan: Eliquis 5mg BID. Plan: will need PT/OT while here updated at bedside History of Present Illness Chief Complaint: shortness of breath Primary Care Provider: Lian Baker PA-C 86yo female with permanent a.fib on Eliquis, pacemaker, HTN, thyroid nodule, and chronic diastolic CHF presents with 8-9 pounds of weight gain over 1-2 weeks, worsening dyspnea on exertion for similar period of time, cough, orthopnea and PND x 2 nights (severe), chronic edema of both legs, urinary incontinence x 24 hours, and lack of appetite for several days. Denies fevers, but has felt cold. She has been vaccinated against COVID-19 - reports having had a 2-shot series along with a booster. She reports compliance with her cardiac meds including lasix which she takes 40mg of daily. Denies indiscretion with her diet. Allergies Allergy/AdvReac Type Severity Reaction Status Date / Time No Known Allergies Allergy Verified 02/11/22 14:51 Home Medications Medication Instructions Recorded Confirmed Type cyanocobalamin (vitamin B-12) 1,000 mcg PO QAM tab 11/21/19 02/11/22 History 1,000 mcg tablet metoprolol tartrate 100 mg tablet 100 mg PO BID #180 tab 10/24/21 02/11/22 Rx apixaban 5 mg tablet (Eliquis) 5 mg PO BID #60 tab 10/29/21 02/11/22 Rx Incentive Spirometer #1 ea 01/30/22 01/30/22 Rx allopurinol 100 mg tablet 100 mg PO QAM 02/11/22 02/11/22 History atorvastatin 10 mg tablet 10 mg PO QAM 02/11/22 02/11/22 History diltiazem HCl 180 mg 180 mg PO QAM 02/11/22 02/11/22 History capsule,extended release 24 hr furosemide 20 mg tablet 40 mg PO QAM 02/11/22 02/11/22 History lisinopril 20 mg tablet 20 mg PO QAM 02/11/22 02/11/22 History potassium chloride 8 mEq 8 meq PO QAM 02/11/22 02/11/22 History tablet,extended release (Klor-Con) Past Med/Surg History Medical History (Updated 02/12/22 @ 07:16 by Micah Salazar) Chronic diastolic CHF (congestive heart failure) Chronic kidney disease, stage 3a Cyst of breast GERD (gastroesophageal reflux disease) Hyperlipidemia Hypertension Idiopathic polyneuropathy Lichen sclerosus et atrophicus Nephrolithiasis Paroxysmal atrial fibrillation Thyroid nodule (03/2020) left sided, FNA suspicious for follicular neoplasm Vitamin D deficiency Surgical History H/O colonoscopy History of cataract surgery History of dilation and curettage History of kidney surgery History of permanent cardiac pacemaker placement S/P cholecystectomy S/P tubal ligation Family History Aunt Breast cancer maternal Grandmother (Maternal) Breast cancer Mother Cervical cancer Varicose veins of both lower extremities Heart disease Cancer Hypertension Hearing loss Myocardial infarction Brother Coronary heart disease Myocardial infarction Father Tetanus Denies family history of Ovarian cancer Prostate cancer Lung cancer Colorectal cancer Social History (Updated 02/11/22 @ 15:54 by Micah Salazar) Smoking Status: Never smoker Second Hand Exposure: No; Hx Alcohol Use: No Hx Substance Use: No Preferred Language: Tajik Communication Ability: Effective Hearing Ability: Normal Resp Ther Required: No Beliefs That Will Affect Care: None marital status: Current Living Situation: Spouse Current Living Situation Comment: lives in [place] current occupational status: retired current occupation: worked in [employer] How many Children do You have: 3 Other Information That Helps Us Care for You: No Feels Safe at Home: Yes Safety Concerns: Feels Safe At This Time Childhood Exposure to Second-Hand Smoke: Yes (Mother smoked) caffeine: Yes Dental Care, Regularly: Yes Physical Activity Frequency: Does not Exercise Seatbelt Use: sometimes Sunscreen Use: Yes Assistive Devices: Cane and Glasses Review of Systems Review of Systems: gen - no fevers but has felt cold; lack of appetite for several days; 8-9 pounds of weight gain over 1-2 weeks HENT - chronic tinnitus; some dysphagia; dry mouth eyes - no visual changes last few days neck - occasional neck pain only CV - no chest pain; +LE edema, +orthopnea, +PND Pulm - dyspnea on exertion climbing a flight of stairs or traveling room to room GI - no vomiting, diarrhea; +bloating & early satiety last few days; no BRBPR; +constipation - urinary incontinence x 24 hours; no dysuria musculo - chronic b/l hip and knee pain neuro - no headaches endo - no diabetes skin - no rash Physical Exam Physical Exam: gen - pleasant, NAD eyes - PERRL HENT - TMs clear b/l, nose clear, mouth with dry MM neck - JVD to the jaw, supple heart - tachy, irregularly irregular, s1 s2, no murmur lungs - bilateral basilar rales without wheeze or increased work of breathing abd - protuberant, BS+, +hepatojugular reflex, NT ext - 1-2+ edema b/l, pulses 2+ b/l neuro - strength 5/5 x 4 exts, DTRs 2+ b/l x 4 exts skin - no rash psych - a/o x 3 lymph - no cervical lymph nodes musculo - b/l knee OA changes Results & Data Results & Data ([facility]) Vital Signs (Past 12 Hours) Vital Signs Temp Pulse Pulse Resp Resp BP BP 02/11/22 15:15 93 H 24 143/88 H 02/11/22 14:38 103 H 137/104 H 02/11/22 14:29 26 H 02/11/22 12:57 78 167/74 H 02/11/22 12:30 02/11/22 11:15 36.5 C 96 H 18 163/94 H Pulse Ox Pulse Ox 02/11/22 15:15 95 02/11/22 14:38 96 02/11/22 14:29 84 L 02/11/22 12:57 92 02/11/22 12:30 93 02/11/22 11:15 91 Laboratory Results Laboratory Results - last 24 hr 02/11/22 02/11/22 02/11/22 12:15 12:15 12:15 WBC 8.98 RBC 3.98 L Hgb 12.0 Hct 38.6 MCV 97.0 MCH 30.2 MCHC 31.1 L RDW Std Deviation 51.4 H RDW Coeff of Tonye 14.5 Plt Count 195 MPV 10.5 H Immature Gran % (Auto) 0.2 Neut % (Auto) 74.9 Lymph % (Auto) 18.4 Atlantic % (Auto) 5.3 Eos % (Auto) 1.0 Baso % (Auto) 0.2 Neut # (Auto) 6.72 H Lymph # (Auto) 1.65 Atlantic # (Auto) 0.48 Eos # (Auto) 0.09 Baso # (Auto) 0.02 Immature Gran # (Auto) 0.02 Sodium 144 Potassium 3.7 Chloride 106 Carbon Dioxide 28 Anion Gap 10 BUN 24 H Creatinine 1.10 Est Cr Clr Drug Dosing 41.8 Est GFR ( Amer) 53.0 Est GFR (Non-Af Amer) 45.7 BUN/Creatinine Ratio 21.8 H Glucose 124 H Calcium 9.8 Total Bilirubin 0.7 AST 16 ALT 10 Alkaline Phosphatase 93 Troponin I < 0.03 B-Natriuretic Peptide Total Protein 7.5 Albumin 4.0 Globulin 3.5 Albumin/Globulin Ratio 1.1 Urine Color Urine Appearance Urine pH Ur Specific Victor Urine Protein Urine Glucose (UA) Urine Ketones Urine Blood Urine Nitrite Urine Bilirubin Urine Urobilinogen Ur Leukocyte Esterase Urine WBC (Auto) Urine RBC (Auto) U Hyaline Cast (Auto) U Epithel Cells (Auto) Urine Bacteria (Auto) Urine Yeast 02/11/22 02/11/22 12:53 15:15 WBC RBC Hgb Hct MCV MCH MCHC RDW Std Deviation RDW Coeff of Toney Plt Count MPV Immature Gran % (Auto) Neut % (Auto) Lymph % (Auto) Atlantic % (Auto) Eos % (Auto) Baso % (Auto) Neut # (Auto) Lymph # (Auto) Atlantic # (Auto) Eos # (Auto) Baso # (Auto) Immature Gran # (Auto) Sodium Potassium Chloride Carbon Dioxide Anion Gap BUN Creatinine Est Cr Clr Drug Dosing Est GFR ( Amer) Est GFR (Non-Af Amer) BUN/Creatinine Ratio Glucose Calcium Total Bilirubin AST ALT Alkaline Phosphatase Troponin I B-Natriuretic Peptide 394 H Total Protein Albumin Globulin Albumin/Globulin Ratio Urine Color Yellow Urine Appearance Clear Urine pH 5.5 Ur Specific Victor 1.007 Urine Protein Negative Urine Glucose (UA) Negative Urine Ketones Negative Urine Blood Negative Urine Nitrite Negative Urine Bilirubin Negative Urine Urobilinogen Negative Ur Leukocyte Esterase Trace H Urine WBC (Auto) Pending Urine RBC (Auto) Pending U Hyaline Cast (Auto) Pending U Epithel Cells (Auto) Pending Urine Bacteria (Auto) Pending Urine Yeast Pending Diagnostic Findings Chest X-Ray 02/11/22 11:19 XR chest 1V portable CLINICAL HISTORY: Dyspnea. COMPARISON STUDY: 10/29/2021 TECHNIQUE: 1 view of the chest FINDINGS: Single frontal view of the chest demonstrates the heart size to again be enlarged with permanent cardiac pacer in place. Compared to previous study, there is a decreased inspiratory effort with elevation of hemidiaphragms and evidence of small bilateral effusions. Minimal bibasilar atelectasis is also present. The lungs are otherwise clear of alveolar opacities. There is no evidence for vascular congestion . There is no acute osseous pathology. IMPRESSION: 1. Decreased inspiration with interval development of small bilateral pleural effusions and bibasilar atelectasis. ACT 112: Negative or not required by law. Electronically signed by: Jason Sykes M.D. 02/11/2022 12:26 PM EKG - a.fib with RVR, RBBB, Q waves inferior leads, lateral ST segment flattening, plenty of artifact as well Code Status & VTE Plan Code Status full code PG Care Time/CCT Total # of Minutes Spent Total Time Spent with Patient: Total time spent is greater than 50% in coordination of care (as documented) at patient's floor/unit and/or counseling patient: Coding Level of Care Code 19194 Initial Inpt Care Lvl 2 Diagnoses Acute on chronic diastolic (congestive) heart failure I50.33 Acute respiratory failure with hypoxia J96.01 Status post placement of cardiac pacemaker Z95.0 Atrial fibrillation I48.91 Chronic kidney disease, stage 3a N18.31 Hyperlipidemia E78.5 Hyperlipidemia type: unspecified Hypertension I10 Hypertension type: essential hypertension Candidal diaper rash B37.2; L22 Primary gout M10.00 DVT prophylaxis Z29.9 (1) Hyperlipidemia Hyperlipidemia type: unspecified Qualified Code(s): E78.5 - Hyperlipidemia, unspecified (2) Hypertension Hypertension type: essential hypertension Qualified Code(s): I10 - Essential (primary) hypertension
[2022-02-11 15:34] LABS: Appearance Urine Clear (Clear); Bacteria Urine Automated Negative (Negative); Bilirubin Urine Negative (Negative); Blood Urine Negative (Negative); Cast Urine Automated 0 /lpf (0-5); Color Urine Yellow; Epithelial Cell Urine Auto 20-30 /lpf (0-5); Glucose Urine UA Negative (Negative); Ketones Urine Negative (Negative); Leukocyte Esterase Urine Trace (Negative); Nitrite Urine Negative (Negative); Protein Urine Negative (Negative); Specific Gravity Urine 1.007 (1.000-1.030); Urobilinogen Urine Negative (Negative); pH Urine 5.5 (4.5-7.5)
[2022-02-11 16:10] LABS: RBC Urine Automated 0-4 /hpf (0-4)
--- NOTE | 2022-02-11 16:55 | Electrocardiogram Report ---
Test Reason : Blood Pressure : / mmHG Vent. Rate : 110 BPM Atrial Rate : 087 BPM P-R Int : 000 ms QRS Dur : 132 ms QT Int : 388 ms P-R-T Axes : 000 -60 117 degrees QTc Int : 525 ms Poor data quality, interpretation may be adversely affected Atrial fibrillation with rapid ventricular response with premature ventricular or aberrantly conducte d complexes Left axis deviation Right bundle branch block possible Inferior infarct (cited on or before 23-AUG-2020) Poor R wave progression, consider anterior AR vs. lead placement vs. LVH T wave abnormality, consider lateral ischemia Abnormal ECG When compared with ECG of 22-DEC-2020 11:34, Vent. rate has increased BY 64 BPM QRS duration has decreased T wave inversion no longer evident in Inferior leads Confirmed by Koby Amezcua ([id number]) on 02/11/2022 4:54:47 PM Referred By: Confirmed By:Malik Amezcua
[2022-02-11 17:07] LABS: Influenza A virus by PCR Negative (Neg); Influenza B virus by PCR Negative (Neg); RSV by PCR Negative (Neg); SARS CoV2 RNA(COVID-19) InHosp NEGATIVE (Negative)
[2022-02-11] MEDS ORDERED: ONDANSETRON INJ 2 MG/ML 2 ML VIAL IV PRN (18:08)
[2022-02-11] MEDS: NYSTATIN POWDER 15GM BTL EXT SCH (20:45)
[2022-02-11] MEDS: APIXABAN 5 MG TABLET PO SCH (20:46)
[2022-02-11] MEDS: METOPROLOL TARTRATE 100 MG TAB PO SCH (20:46)
[2022-02-12] MEDS ORDERED: PERFLUTREN LIPID MICROSPHERE (DEFINITY) IV ONE (06:59)
[2022-02-12] MEDS: lisinopril 20 MG TAB PO SCH (07:37)
[2022-02-12] MEDS: METOPROLOL TARTRATE 100 MG TAB PO SCH ×2 (07:37→20:10)
[2022-02-12] MEDS: dilTIAZem HCL 180 MG CAPCR PO SCH (07:37)
[2022-02-12] MEDS: allopurinoL 100 MG TAB PO SCH (07:37)
[2022-02-12] MEDS: CYANOCOBALAMIN (B-12) 500 MCG TABLET PO SCH (07:37)
[2022-02-12] MEDS: ATORVASTATIN 10 MG TAB PO SCH (07:37)
[2022-02-12] MEDS: NYSTATIN POWDER 15GM BTL EXT SCH ×3 (07:38→20:10)
[2022-02-12] MEDS: FUROSEMIDE 40 MG/4 ML VIAL IV SCH (07:38)
[2022-02-12] MEDS: APIXABAN 5 MG TABLET PO SCH ×2 (07:38→20:11)
[2022-02-12 08:09] LABS: BUN Creatinine Ratio 22.3 (10-20); Calcium 9.4 mg/dl (8.5-10.1); Creatinine Clr Calc Pharmacy 44.1 ml/min; Est GFR (African American) 57.4 ml/min; Est GFR (Non-African American) 49.5 ml/min; Magnesium 2.1 mg/dl (1.7-2.4); Potassium 3.7 mmol/L (3.5-5.1)
--- NOTE | 2022-02-12 11:25 | XCELERA ---
[id number]
--- NOTE | 2022-02-12 15:25 | Heart Failure Consultation ---
Date of Consultation February 12, 2022 Assessment & Plan (1) Acute on chronic heart failure with preserved ejection fraction (HFpEF): (2) Hypertension: (3) Atrial fibrillation: (4) Chronic kidney disease, stage 3a: (5) Mitral regurgitation: (6) Bifascicular bundle branch block: (7) Sinus bradycardia: (8) Status post placement of cardiac pacemaker: Acute HFpEF: According to the chart, patient has been been having difficulty with fluid retention for several months. Suspect this may be tachycardia induced? She was in rapid afib on admission. Interrogation ordered to assess afib burden and rate. Also consider dietary indiscretion. She had a pleural effusion which required thoracentesis. She has also noted increased lower extremity edema. BNP is elevated with small pleural effusions on CXR. EF 5-60% with elevated RV pressures. She has been taking 40 mg Lasix at home. Patient confirms she has been adherent to this and has not skipped any doses. Continue Lasix 40 mg IV daily until optimized. Patient feeling improved but was still on supplemental O2. Continue to monitor kidney function and electrolytes. She seems to be below her dry weight according to the chart? Daily STANDING weights. Get a standing weight in AM. Low sodium diet. Strict I&Os. Dual-chamber pacemaker: Follows with Dr. De Paz. Atrial fibrillation: She remains in atrial fibrillation which has been persistent and is possibly permanent. Rate is well controlled since last night. Continue beta lynn therapy and Diltiazem for rate control. Continue anticoagulation for stroke risk reduction. High blood pressure: Her blood pressure is well controlled. Optimize volume status as above. Mitral regurgitation: Mild. Continue to monitor. Disposition: Will continue to follow during hospitalization. Plan to enroll in the [facility] HF program. Outpatient follow up 02/20/22 at 10:30am History of Present Illness Attending Physician: Armando Garrett History of Present Illness Patient is an 86 year old female with history of persistent atrial fibrillation, hypertension, edema, pacemaker, sinus node dysfunction, bifascicular block. 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 Recent cardiac studies: 1. 02/12/22 Echo: LV systolic function normal. RV mildly dilated. Aortic valve sclerosis is mild, without significant stenosis. Mild MR. RVSP elevated at 50-60 mmHg. IVC mildly dilated. Patient was admitted 02/11/22. She presented with increasing dyspnea and edema. She also noted some orthopnea. She was in rapid afib at presentation. BNP elevated at 394. CXR with small bilateral pleural effusions and atelectasis. She was treated with Lasix 40 mg IV in the ED. Echocardiogram with preserved EF, mildly dilated RV and dilated IVC. Patient appears comfortable this am. She is sitting in the bedside chair. She feels that her breathing is improving. She remains on supplemental O2. Lower extremeity edema is improved. She denies palpitations, chest pain, cough. Telemetry reviewed- paced in the 80s. I&Os indicated +1 L since admission. Weight is down 5 lb. She had another dose of Lasix 40 mg IV this am. SocHx: Patient lives with her in [place]. They are independent- they drive and do their own medications. She has 3 grown children. She denies alcohol or tobacco use. FamHx: + Breast cancer, cervical cancer, heart disease, hypertension. Allergies Allergy/AdvReac Type Severity Reaction Status Date / Time No Known Allergies Allergy Verified 02/11/22 14:51 Home Medications Medication Instructions Recorded Confirmed Type cyanocobalamin (vitamin B-12) 1,000 mcg PO QAM tab 11/21/19 02/11/22 History 1,000 mcg tablet metoprolol tartrate 100 mg tablet 100 mg PO BID #180 tab 10/24/21 02/11/22 Rx apixaban 5 mg tablet (Eliquis) 5 mg PO BID #60 tab 10/29/21 02/11/22 Rx Incentive Spirometer #1 ea 01/30/22 01/30/22 Rx allopurinol 100 mg tablet 100 mg PO QAM 02/11/22 02/11/22 History atorvastatin 10 mg tablet 10 mg PO QAM 02/11/22 02/11/22 History diltiazem HCl 180 mg 180 mg PO QAM 02/11/22 02/11/22 History capsule,extended release 24 hr furosemide 20 mg tablet 40 mg PO QAM 02/11/22 02/11/22 History lisinopril 20 mg tablet 20 mg PO QAM 02/11/22 02/11/22 History potassium chloride 8 mEq 8 meq PO QAM 02/11/22 02/11/22 History tablet,extended release (Klor-Con) Patient History Medical History (Updated 02/12/22 @ 15:16 by Alejandrina Bravo PA-C) Chronic diastolic CHF (congestive heart failure) Chronic kidney disease, stage 3a Cyst of breast GERD (gastroesophageal reflux disease) Hyperlipidemia Hypertension Idiopathic polyneuropathy Lichen sclerosus et atrophicus Nephrolithiasis Paroxysmal atrial fibrillation Thyroid nodule (03/2020) left sided, FNA suspicious for follicular neoplasm Vitamin D deficiency Surgical History H/O colonoscopy History of cataract surgery History of dilation and curettage History of kidney surgery History of permanent cardiac pacemaker placement S/P cholecystectomy S/P tubal ligation Family History Aunt Breast cancer maternal Grandmother (Maternal) Breast cancer Mother Cervical cancer Varicose veins of both lower extremities Heart disease Cancer Hypertension Hearing loss Myocardial infarction Brother Coronary heart disease Myocardial infarction Father Tetanus Denies family history of Ovarian cancer Prostate cancer Lung cancer Colorectal cancer Social History (Updated 02/11/22 @ 15:54 by Micah Salazar) Smoking Status: Never smoker Second Hand Exposure: No; Hx Alcohol Use: No Hx Substance Use: No Preferred Language: Tristanian Communication Ability: Effective Hearing Ability: Normal Television Tube Inspector Required: No Beliefs That Will Affect Care: None marital status: Current Living Situation: Spouse Current Living Situation Comment: lives in [place] current occupational status: retired current occupation: worked in [employer], retail How many Children do You have: 3 Feels Safe at Home: Yes Childhood Exposure to Second-Hand Smoke: Yes (Mother smoked) caffeine: Yes Dental Care, Regularly: Yes Physical Activity Frequency: Does not Exercise Seatbelt Use: sometimes Sunscreen Use: Yes Assistive Devices: Cane Physical Exam Physical Exam: Constitutional: Alert, oriented, in no acute distress. Supplemental O2. HEENT: Head is atraumatic and normocephalic. EOMs intact. Sclera non-icteric. Neck: Supple, + JVD retirement to the mandible Pulmonary: Normal respiratory effort, faint bibasilar crackles, otherwise clear to auscultation throughout Cardiac: Irregularly irregular, normal S1 and S2, no gallops, no rubs, no murmurs Extremities: 1+ lower extremity edema bilaterally. No clubbing or cyanosis. Pulses intact Abdomen: Normal bowel sounds, soft, non-tender, no abdominal masses palpated Skin: Normal skin color, turgor, and pigmentation. No rash or skin lesions Neurological: Oriented to person, place, and time Results & Data ([facility]) Vital Signs (Past 12 Hours) Vital Signs Temp Pulse Resp BP Pulse Ox 02/12/22 11:50 98.2 F 70 18 118/71 91 02/12/22 07:45 97.9 F 78 20 159/74 H 95 02/12/22 03:00 97.9 F 77 16 119/74 96 Heart Failure Data/Metrics Heart Failure Type: Diastolic Ejection Fraction: 55-60% Pacemaker: Yes Evidenced Based Beta Lynn Therapy Beta Lynn Therapy: Not Indicated KIRT/ARB/ARNI Therapy KIRT/ARB/ARNI Therapy: Not Indicated Aldosterone Antagonist Therapy Aldosterone Antagonist Therapy: Not Indicated Coding Level of Care Code 06750 Initial Inpt Care Lvl 3 Diagnoses Acute on chronic heart failure with preserved ejection fraction (HFpEF) I50.33 Hypertension I10 Hypertension type: essential hypertension Atrial fibrillation I48.91 Chronic kidney disease, stage 3a N18.31 Mitral regurgitation I34.0 Bifascicular bundle branch block I45.2 Sinus bradycardia R00.1 Status post placement of cardiac pacemaker Z95.0 (1) Hypertension Hypertension type: essential hypertension Qualified Code(s): I10 - Essential (primary) hypertension
--- NOTE | 2022-02-12 20:04 | Hospitalist Progress Note ---
Date of Service February 12, 2022 Assessment & Plan (1) Acute on chronic diastolic (congestive) heart failure: Plan: Patient presents volume overloaded. Last echo was in January 2020. Follows with [facility] Cardiology. Possible reasons for decompensation include poorly controlled a.fib, dietary indiscretion, worsening LV function, etc. Received 40mg of IV lasix in the ER. Will follow her response to such tonight, then resume 40mg IV daily in am. She could need BID dosing. Consult [facility] CHF team, Ms Ofelia TORRES. Obtain new echo. Place on telemetry. Will obtain a pacemaker interrogation - last was in 10/2021; assess a.fib burden as well as a.fib rates. Continue metoprolol 100mg BID. on 02/12 will continue current lasix regimen. will continue to monitor Is and Os. will recheck PRP and BNP in am. (2) Acute respiratory failure with hypoxia: Plan: 2nd to decompensated CHF. Infectious causes/pneumonia felt much less likely. Diurese. Check COVID/RSV/flu swab. NC O2 to maintain sats >92%. (3) Status post placement of cardiac pacemaker: Plan: for SSS. follows with Dr Cordell De Paz, [facility] Cardiology. pacemaker interrogation in am requested. (4) Atrial fibrillation: Plan: patient presented with mild rapid a.fib. Rates already improved since arrival. Cont BB. Cont CCB. Cont Eliquis 5mg BID (although she is 86yo she meets criteria for the 5mg based on weight & renal Fx). Pacemaker interrogation requested to check a.fib burden (last office visit suggested that she likely has permanent a.fib as opposed to PAF). Place on telemetry. (5) Chronic kidney disease, stage 3a: Plan: baseline CrCl 40s bmp daily while being diuresed (6) Hyperlipidemia: Plan: cont statin agent (7) Hypertension: Plan: BPs mildly high upon presentation. Improved s/p lasix IV and resumption of typical meds. Cont CCB, BB, and lisinopril. (8) Candidal diaper rash: Plan: nystatin powder TID to groin, skin folds, etc (9) Primary gout: Plan: no flare at this time cont allopurinol prophylaxis (10) DVT prophylaxis: Plan: Eliquis 5mg BID. Plan: will need PT/OT while here updated at bedside Admission and Anticipated Discharge Date Admission Date: February 11, 2022 Subjective Patient reports having improvement in regards to her breathing. Not at baseline. Review of Systems Review of Systems: All systems reviewed & are unremarkable except as noted in HPI & below Physical Exam Physical Exam: gen - pleasant, NAD eyes - PERRL HENT - TMs clear b/l, nose clear, mouth with dry MM neck - JVD to the jaw, supple heart - tachy, irregularly irregular, s1 s2, no murmur lungs - bilateral basilar rales without wheeze or increased work of breathing abd - protuberant, BS+, +hepatojugular reflex, NT ext - 1-2+ edema b/l, pulses 2+ b/l neuro - strength 5/5 x 4 exts, DTRs 2+ b/l x 4 exts skin - no rash psych - a/o x 3 lymph - no cervical lymph nodes musculo - b/l knee OA changes Results & Data Results & Data ([facility]) Vital Signs (Past 12 Hours) Vital Signs Temp Pulse Resp BP Pulse Ox 02/12/22 19:00 36.6 C 80 16 128/76 97 02/12/22 16:00 36.8 C 70 19 126/82 94 02/12/22 11:50 36.8 C 70 18 118/71 91 PG Care Time/CCT Total # of Minutes Spent Total Time Spent with Patient: Total time spent is greater than 50% in coordination of care (as documented) at patient's floor/unit and/or counseling patient: Coding Level of Care Code 15996 Subseq Hosp Care Lvl 2 Diagnoses Acute on chronic diastolic (congestive) heart failure I50.33 Acute respiratory failure with hypoxia J96.01 Status post placement of cardiac pacemaker Z95.0 Atrial fibrillation I48.91 Chronic kidney disease, stage 3a N18.31 Hyperlipidemia E78.5 Hyperlipidemia type: unspecified Hypertension I10 Hypertension type: essential hypertension Candidal diaper rash B37.2; L22 Primary gout M10.00 DVT prophylaxis Z29.9 (1) Hyperlipidemia Hyperlipidemia type: unspecified Qualified Code(s): E78.5 - Hyperlipidemia, unspecified (2) Hypertension Hypertension type: essential hypertension Qualified Code(s): I10 - Essential (primary) hypertension
[2022-02-13] MEDS: APIXABAN 5 MG TABLET PO SCH ×2 (08:06→20:23)
[2022-02-13] MEDS: allopurinoL 100 MG TAB PO SCH (08:06)
[2022-02-13] MEDS: ATORVASTATIN 10 MG TAB PO SCH (08:07)
[2022-02-13] MEDS: CYANOCOBALAMIN (B-12) 500 MCG TABLET PO SCH (08:07)
[2022-02-13] MEDS: lisinopril 20 MG TAB PO SCH (08:08)
[2022-02-13] MEDS: dilTIAZem HCL 180 MG CAPCR PO SCH (08:08)
[2022-02-13] MEDS: NYSTATIN POWDER 15GM BTL EXT SCH ×3 (08:09→20:23)
[2022-02-13] MEDS: METOPROLOL TARTRATE 100 MG TAB PO SCH ×2 (08:09→20:23)
[2022-02-13] MEDS: FUROSEMIDE 40 MG/4 ML VIAL IV SCH ×2 (08:10→16:42)
--- NOTE | 2022-02-13 12:04 | Heart Failure Progress Note ---
Date of Service February 13, 2022 Assessment & Plan (1) Acute on chronic heart failure with preserved ejection fraction (HFpEF): (2) Hypertension: (3) Atrial fibrillation: (4) Chronic kidney disease, stage 3a: (5) Mitral regurgitation: (6) Bifascicular bundle branch block: (7) Sinus bradycardia: (8) Status post placement of cardiac pacemaker: Plan: Acute HFpEF: According to the chart, patient has been been having difficulty with fluid retention for several months. She was in rapid a-fib on admission. Pacemaker interrogation confirms good rate control prior to admission, therefore RVR likely secondary to volume overload. She's been in a-fib 100% since March 2021 so that would likely not contribute to her acute symptoms. Consider dietary indiscretion. She had a pleural effusion which required thoracentesis. She has also noted increased lower extremity edema. BNP is elevated with small pleural effusions on CXR. EF 55-60% with elevated RV pressures. She has been taking 40 mg Lasix at home. Patient confirms she has been adherent to this and has not skipped any doses. She is net positive and still requiring supplemental O2. Recommend increasing Lasix to 40 mg IV BID with a goal of negative 1-2 L/day. Continue to monitor kidney function and electrolytes. Daily STANDING weights. Nursing notified to get a standing weight today. Low sodium diet. Strict I&Os. Dual-chamber pacemaker: Follows with Dr. De Paz. Atrial fibrillation: She remains in atrial fibrillation which has been persistent and is possibly permanent. Rate is well controlled since her initial presentation. Continue beta shara therapy and Diltiazem for rate control. Continue anticoagulation for stroke risk reduction. High blood pressure: Her blood pressure is well controlled. Optimize volume status as above. Mitral regurgitation: Mild. Continue to monitor. Disposition: Will continue to follow during hospitalization. Plan to [place] in [place] [facility] [place]. Outpatient follow up 02/20/22 at 10:30am Admission and Anticipated Discharge Date Admission Date: February 11, 2022 Subjective Patient resting comfortably in bed this am. She feels she is still having dyspnea. She continues on supplemental O2, 2L. She has been ambulating to the bathroom but becomes easily winded. She reports she slept well. Her head was at about 30 degrees. Lower extremity edema is mild. Fluid balance was positive overnight. No standing weight today. Device interrogation was unremarkable. She has been in atrial fibrillation 100% since March 2021. Rates have been well c ontrolled prior to admission. Telemetry reviewed- afib, paced, in the 80s. Physical Exam Physical Exam: Constitutional: Alert, oriented, in no acute distress. Supplemental O2. HEENT: Head is atraumatic and normocephalic. EOMs intact. Sclera non-icteric. Neck: Supple, + JVD fpc to the mandible Pulmonary: Normal respiratory effort, faint bibasilar crackles, otherwise clear to auscultation throughout Cardiac: Irregularly irregular, normal S1 and S2, no gallops, no rubs, no murmurs Extremities: 1+ lower extremity edema bilaterally. No clubbing or cyanosis. Pulses intact Abdomen: Normal bowel sounds, soft, non-tender, no abdominal masses palpated Skin: Normal skin color, turgor, and pigmentation. No rash or skin lesions Neurological: Oriented to person, place, and time Results & Data ([facility]) Vital Signs (Past 12 Hours) Vital Signs Temp Pulse Resp BP Pulse Ox 02/13/22 10:51 97.5 F L 75 24 128/73 93 02/13/22 07:38 97.5 F L 77 18 130/78 98 02/13/22 07:00 97.9 F 86 18 141/72 H 96 02/13/22 03:11 97.7 F 75 16 115/73 96 PG Care Time/CCT Total # of Minutes Spent Total Time Spent with Patient: Total time spent is greater than 50% in coordination of care (as documented) at patient's floor/unit and/or counseling patient: Coding Level of Care Code 17691 Subseq Hosp Care Lvl 3 Diagnoses Acute on chronic heart failure with preserved ejection fraction (HFpEF) I50.33 Hypertension I10 Hypertension type: essential hypertension Atrial fibrillation I48.91 Chronic kidney disease, stage 3a N18.31 Mitral regurgitation I34.0 Bifascicular bundle branch block I45.2 Sinus bradycardia R00.1 Status post placement of cardiac pacemaker Z95.0 (1) Hypertension Hypertension type: essential hypertension Qualified Code(s): I10 - Essential (primary) hypertension
[2022-02-13 13:23] LABS: BUN Creatinine Ratio 24.8 (10-20); Calcium 9.6 mg/dl (8.5-10.1); Creatinine Clr Calc Pharmacy 43.2 ml/min; Est GFR (African American) 56.1 ml/min; Est GFR (Non-African American) 48.4 ml/min; Potassium 3.6 mmol/L (3.5-5.1)
[2022-02-13] MEDS ORDERED: Nursing to Pharmacy Communication SCH (15:45)
[2022-02-13] MEDS ORDERED: FUROSEMIDE 40 MG/4 ML VIAL IV SCH (17:00)
--- NOTE | 2022-02-13 21:01 | Hospitalist Progress Note ---
Date of Service February 13, 2022 Assessment & Plan (1) Acute on chronic diastolic (congestive) heart failure: Plan: Patient presents volume overloaded. Last echo was in January 2020. [place] [facility] Possible reasons for decompensation include poorly controlled a.fib, dietary indiscretion, worsening LV function, etc. Received 40mg of IV lasix in the ER. Will follow her response to such tonight, then resume 40mg IV daily in am. She could need BID dosing. Consult [facility] [place], Ms Ofelia TORRES. Obtain new echo. Place on telemetry. Will obtain a pacemaker interrogation - last was in 10/2021; assess a.fib burden as well as a.fib rates. Continue metoprolol 100mg BID. on 02/13 as patient remained net positive. will increase lasix regimen will continue to monitor Is and Os. will recheck PRP and BNP in am. (2) Acute respiratory failure with hypoxia: Plan: 2nd to decompensated CHF. Infectious causes/pneumonia felt much less likely. Diurese. Check COVID/RSV/flu swab. NC O2 to maintain sats >92%. (3) Status post placement of cardiac pacemaker: Plan: for SSS. follows with Dr Cordell De Paz, [facility]. pacemaker interrogation in am requested. (4) Atrial fibrillation: Plan: patient presented with mild rapid a.fib. Rates already improved since arrival. Cont BB. Cont CCB. Cont Eliquis 5mg BID (although she is 86yo she meets criteria for the 5mg based on weight & renal Fx). Pacemaker interrogation requested to check a.fib burden (last office visit suggested that she likely has permanent a.fib as opposed to PAF). Place on telemetry. (5) Chronic kidney disease, stage 3a: Plan: baseline CrCl 40s bmp daily while being diuresed (6) Hyperlipidemia: Plan: cont statin agent (7) Hypertension: Plan: BPs mildly high upon presentation. Improved s/p lasix IV and resumption of typical meds. Cont CCB, BB, and lisinopril. (8) Candidal diaper rash: Plan: nystatin powder TID to groin, skin folds, etc (9) Primary gout: Plan: no flare at this time cont allopurinol prophylaxis (10) DVT prophylaxis: Plan: Eliquis 5mg BID. Plan: will need PT/OT while here updated at bedside Admission and Anticipated Discharge Date Admission Date: February 11, 2022 Subjective Patient reports minimal improvement from yesterday. Review of Systems Review of Systems: All systems reviewed & are unremarkable except as noted in HPI & below Physical Exam Physical Exam: gen - pleasant, NAD eyes - PERRL HENT - TMs clear b/l, nose clear, mouth with dry MM neck - JVD to the jaw, supple heart - tachy, irregularly irregular, s1 s2, no murmur lungs - bilateral basilar rales without wheeze or increased work of breathing abd - protuberant, BS+, +hepatojugular reflex, NT ext - 1-2+ edema b/l, pulses 2+ b/l neuro - strength 5/5 x 4 exts, DTRs 2+ b/l x 4 exts skin - no rash psych - a/o x 3 lymph - no cervical lymph nodes musculo - b/l knee OA changes Results & Data Results & Data ([facility]) Vital Signs (Past 12 Hours) Vital Signs Temp Pulse Resp BP BP Pulse Ox 02/13/22 19:35 36.9 C 71 18 118/75 95 02/13/22 16:27 36.6 C 93 H 19 100/65 97 02/13/22 10:51 36.4 C L 75 24 128/73 93 PG Care Time/CCT Total # of Minutes Spent Total Time Spent with Patient: Total time spent is greater than 50% in coordination of care (as documented) at patient's floor/unit and/or counseling patient: Coding Level of Care Code 42944 Subseq Hosp Care Lvl 2 Diagnoses Acute on chronic diastolic (congestive) heart failure I50.33 Acute respiratory failure with hypoxia J96.01 Status post placement of cardiac pacemaker Z95.0 Atrial fibrillation I48.91 Chronic kidney disease, stage 3a N18.31 Hyperlipidemia E78.5 Hyperlipidemia type: unspecified Hypertension I10 Hypertension type: essential hypertension Candidal diaper rash B37.2; L22 Primary gout M10.00 DVT prophylaxis Z29.9 Time Spent (min) 25 (1) Hyperlipidemia Hyperlipidemia type: unspecified Qualified Code(s): E78.5 - Hyperlipidemia, unspecified (2) Hypertension Hypertension type: essential hypertension Qualified Code(s): I10 - Essential (primary) hypertension
[2022-02-14 07:36] LABS: Calcium 9.3 mg/dl (8.5-10.1); Creatinine Clr Calc Pharmacy 42.3 ml/min; Est GFR (African American) 54.8 ml/min; Est GFR (Non-African American) 47.3 ml/min; Potassium 3.5 mmol/L (3.5-5.1)
[2022-02-14] MEDS: lisinopril 20 MG TAB PO SCH (08:50)
[2022-02-14] MEDS: CYANOCOBALAMIN (B-12) 500 MCG TABLET PO SCH (08:50)
[2022-02-14] MEDS: dilTIAZem HCL 180 MG CAPCR PO SCH (08:50)
[2022-02-14] MEDS: FUROSEMIDE 40 MG/4 ML VIAL IV SCH ×2 (08:50→16:52)
[2022-02-14] MEDS: APIXABAN 5 MG TABLET PO SCH ×2 (08:50→20:57)
[2022-02-14] MEDS: METOPROLOL TARTRATE 100 MG TAB PO SCH ×2 (08:50→20:57)
[2022-02-14] MEDS: NYSTATIN POWDER 15GM BTL EXT SCH ×3 (08:51→20:57)
[2022-02-14] MEDS: allopurinoL 100 MG TAB PO SCH (08:51)
[2022-02-14] MEDS: ATORVASTATIN 10 MG TAB PO SCH (08:51)
--- NOTE | 2022-02-14 13:13 | Heart Failure Progress Note ---
Date of Service February 14, 2022 Assessment & Plan (1) Acute on chronic heart failure with preserved ejection fraction (HFpEF): (2) Hypertension: (3) Atrial fibrillation: (4) Chronic kidney disease, stage 3a: (5) Mitral regurgitation: (6) Bifascicular bundle branch block: (7) Sinus bradycardia: (8) Status post placement of cardiac pacemaker: Plan: Acute HFpEF: According to the chart, patient has been been having difficulty with fluid retention for several months prior to admission. She was in rapid a- fib on admission. Pacemaker interrogation confirms good rate control prior to admission, therefore RVR likely secondary to volume overload. She's been in a- fib 100% since March 2021 so that would likely not contribute to her acute symptoms. Consider dietary indiscretion. She is net negative on BID Lasix and seems to have some clinical improvement today. She is still requiring supplemental O2. BNP down-trending. Kidney function and electrolytes acceptable. Continue Lasix to 40 mg IV BID with a goal of negative 1-2 L/day. Continue to monitor kidney function and electrolytes. Daily STANDING weights. Low sodium diet. Strict I&Os. Dual-chamber pacemaker: Follows with Dr. De Paz. Atrial fibrillation: She remains in atrial fibrillation which has been persistent and is possibly permanent. Rate is well controlled since her initial presentation. Continue beta lynn therapy and Diltiazem for rate control. Continue anticoagulation for stroke risk reduction. High blood pressure: Her blood pressure is well controlled. Optimize volume status as above. Mitral regurgitation: Mild. Continue to monitor. Disposition: Will continue to follow during hospitalization. Plan to enroll in the [facility] HF program. Outpatient follow up 02/20/22 at 10:30am Admission and Anticipated Discharge Date Admission Date: February 11, 2022 Subjective Patient reports feeling slightly better this morning. She did have some mild dyspnea overnight ambulating to the bathroom. She was increased to BID Lasix yesterday and was -1300 ml in 24 hours. Her edema is stable. She is sleeping with her head slightly elevated. She denies chest pain or cough. Physical Exam Physical Exam: Constitutional: Alert, oriented, in no acute distress. Supplemental O2. HEENT: Head is atraumatic and normocephalic. EOMs intact. Sclera non-icteric. Neck: Supple, + JVD long-term to the mandible Pulmonary: Normal respiratory effort, faint bibasilar crackles, otherwise clear to auscultation throughout Cardiac: Irregularly irregular, normal S1 and S2, no gallops, no rubs, no murmurs Extremities: 1+ lower extremity edema bilaterally. No clubbing or cyanosis. Pulses intact Abdomen: Normal bowel sounds, soft, non-tender, no abdominal masses palpated Skin: Normal skin color, turgor, and pigmentation. No rash or skin lesions Neurological: Oriented to person, place, and time Results & Data ([facility]) Vital Signs (Past 12 Hours) Vital Signs Temp Pulse Pulse Resp BP BP Pulse Ox 02/14/22 12:21 97.7 F 86 20 139/71 96 02/14/22 10:12 71 02/14/22 10:04 64 02/14/22 08:00 98.6 F 96 H 18 141/62 H 99 02/14/22 03:41 97.5 F L 72 18 118/66 93 PG Care Time/CCT Total # of Minutes Spent Total Time Spent with Patient: Total time spent is greater than 50% in coordination of care (as documented) at patient's floor/unit and/or counseling patient: Heart Failure Data/Metrics Ejection Fraction: 55-60% Pacemaker: Yes Evidenced Based Beta Lynn Therapy Beta Lynn Therapy: Not Indicated KIRT/ARB/ARNI Therapy KIRT/ARB/ARNI Therapy: Not Indicated Aldosterone Antagonist Therapy Aldosterone Antagonist Therapy: Not Indicated Coding Level of Care Code 02332 Subseq Hosp Care Lvl 3 Diagnoses Acute on chronic heart failure with preserved ejection fraction (HFpEF) I50.33 Hypertension I10 Hypertension type: essential hypertension Atrial fibrillation I48.91 Chronic kidney disease, stage 3a N18.31 Mitral regurgitation I34.0 Bifascicular bundle branch block I45.2 Sinus bradycardia R00.1 Status post placement of cardiac pacemaker Z95.0 (1) Hypertension Hypertension type: essential hypertension Qualified Code(s): I10 - Essential (primary) hypertension
--- NOTE | 2022-02-14 20:51 | Hospitalist Progress Note ---
Date of Service February 14, 2022 Assessment & Plan (1) Acute on chronic diastolic (congestive) heart failure: Plan: Patient presents volume overloaded. Last echo was in January 2020. Follows with [facility] Cardiology. Possible reasons for decompensation include poorly controlled a.fib, dietary indiscretion, worsening LV function, etc. Received 40mg of IV lasix in the ER. Will follow her response to such tonight, then resume 40mg IV daily in am. She could need BID dosing. Consult [facility] CHF team, Ms Ofelia TORRES. Obtain new echo. Place on telemetry. Will obtain a pacemaker interrogation - last was in 10/2021; assess a.fib burden as well as a.fib rates. Continue metoprolol 100mg BID. on 02/14 As patient had increased lasix to 40 mg BID dosing on 02/13 Patient finally is net negative -300 , but in past 24 hours she is about -1.5 liter will continue current regimen. She remains on nasal canula however at home she is on room air. will continue to monitor Is and Os, and check standing weights. will recheck PRP and BNP in am. (2) Acute respiratory failure with hypoxia: Plan: 2nd to decompensated CHF. Infectious causes/pneumonia felt much less likely. Diurese. Check COVID/RSV/flu swab. NC O2 to maintain sats >92%. (3) Status post placement of cardiac pacemaker: Plan: for SSS. follows with Dr Cordell De Paz, [facility] Cardiology. pacemaker interrogation in am requested. (4) Atrial fibrillation: Plan: patient presented with mild rapid a.fib. Rates already improved since arrival. Cont BB. Cont CCB. Cont Eliquis 5mg BID (although she is 86yo she meets criteria for the 5mg based on weight & renal Fx). Pacemaker interrogation requested to check a.fib burden (last office visit suggested that she likely has permanent a.fib as opposed to PAF). Place on telemetry. (5) Chronic kidney disease, stage 3a: Plan: baseline CrCl 40s bmp daily while being diuresed (6) Hyperlipidemia: Plan: cont statin agent (7) Hypertension: Plan: BPs mildly high upon presentation. Improved s/p lasix IV and resumption of typical meds. Cont CCB, BB, and lisinopril. (8) Candidal diaper rash: Plan: nystatin powder TID to groin, skin folds, etc (9) Primary gout: Plan: no flare at this time cont allopurinol prophylaxis (10) DVT prophylaxis: Plan: Eliquis 5mg BID. Plan: will need PT/OT while here updated at bedside Admission and Anticipated Discharge Date Admission Date: February 11, 2022 Subjective Patient is breathing better. She continues to require oxygen. Review of Systems Review of Systems: All systems reviewed & are unremarkable except as noted in HPI & below Physical Exam Physical Exam: gen - pleasant, NAD eyes - PERRL HENT - TMs clear b/l, nose clear, mouth with dry MM neck - supple, JVD care home to mandible heart - irregularly irregular, s1 s2, no murmur lungs - bilateral basilar rales without wheeze or increased work of breathing abd - protuberant, BS+, +hepatojugular reflex, NT ext - 1+ edema b/l, pulses 2+ b/l neuro - strength 5/5 x 4 exts, DTRs 2+ b/l x 4 exts skin - no rash psych - a/o x 3 lymph - no cervical lymph nodes musculo - b/l knee OA changes Results & Data Results & Data ([facility]) Vital Signs (Past 12 Hours) Vital Signs Temp Pulse Pulse Resp BP BP Pulse Ox 02/14/22 19:15 36.5 C 84 18 104/58 L 97 02/14/22 16:57 36.8 C 87 18 142/65 H 98 02/14/22 15:11 94 02/14/22 12:21 36.5 C 86 20 139/71 96 02/14/22 10:12 71 02/14/22 10:04 64 PG Care Time/CCT Total # of Minutes Spent Total Time Spent with Patient: Total time spent is greater than 50% in coordination of care (as documented) at patient's floor/unit and/or counseling patient: Coding Level of Care Code 83551 Subseq Hosp Care Lvl 2 Diagnoses Acute on chronic diastolic (congestive) heart failure I50.33 Acute respiratory failure with hypoxia J96.01 Status post placement of cardiac pacemaker Z95.0 Atrial fibrillation I48.91 Chronic kidney disease, stage 3a N18.31 Hyperlipidemia E78.5 Hyperlipidemia type: unspecified Hypertension I10 Hypertension type: essential hypertension Candidal diaper rash B37.2; L22 Primary gout M10.00 DVT prophylaxis Z29.9 (1) Hyperlipidemia Hyperlipidemia type: unspecified Qualified Code(s): E78.5 - Hyperlipidemia, unspecified (2) Hypertension Hypertension type: essential hypertension Qualified Code(s): I10 - Essential (primary) hypertension
[2022-02-15 06:37] LABS: Hematocrit (blood only) 33.5 % (37-47); Hemoglobin 10.8 g/dL (12.0-16.0); Mean Corpuscular Hemoglobin 31.3 pg (25-34); Mean Corpuscular Hgb Conc 32.2 g/dL (32-36); Mean Corpuscular Volume 97.1 fL (80-100); Mean Platelet Volume 10.9 fL (7.4-10.4); Platelet Count 186 K/uL (130-400); RDW Coefficient of Variation 14.2 % (11.5-14.5); RDW Standard Deviation 50.5 fL (36.4-46.3); Red Blood Count 3.45 M/uL (4.2-5.4); White Blood Count 9.88 K/uL (4.8-10.8)
[2022-02-15 07:05] LABS: BUN Creatinine Ratio 30.9 (10-20); Calcium 9.5 mg/dl (8.5-10.1); Creatinine Clr Calc Pharmacy 41.2 ml/min; Est GFR (Non-African American) 45.7 ml/min; Potassium 3.4 mmol/L (3.5-5.1)
[2022-02-15] MEDS: dilTIAZem HCL 180 MG CAPCR PO SCH (08:20)
[2022-02-15] MEDS: allopurinoL 100 MG TAB PO SCH (08:21)
[2022-02-15] MEDS: FUROSEMIDE 40 MG/4 ML VIAL IV SCH ×2 (08:21→16:22)
[2022-02-15] MEDS: APIXABAN 5 MG TABLET PO SCH ×2 (08:21→21:11)
[2022-02-15] MEDS: lisinopril 20 MG TAB PO SCH (08:22)
[2022-02-15] MEDS: METOPROLOL TARTRATE 100 MG TAB PO SCH ×2 (08:22→21:11)
[2022-02-15] MEDS: CYANOCOBALAMIN (B-12) 500 MCG TABLET PO SCH (08:23)
[2022-02-15] MEDS: NYSTATIN POWDER 15GM BTL EXT SCH ×3 (08:24→21:11)
[2022-02-15] MEDS: ATORVASTATIN 10 MG TAB PO SCH (08:24)
--- NOTE | 2022-02-15 14:50 | Heart Failure Progress Note ---
Date of Service February 15, 2022 Assessment & Plan (1) Acute on chronic heart failure with preserved ejection fraction (HFpEF): (2) Hypertension: (3) Atrial fibrillation: (4) Chronic kidney disease, stage 3a: (5) Mitral regurgitation: (6) Bifascicular bundle branch block: (7) Sinus bradycardia: (8) Status post placement of cardiac pacemaker: Plan: Acute HFpEF: According to the chart, patient has been been having difficulty with fluid retention for several months prior to admission. She was in rapid a- fib on admission. Pacemaker interrogation confirms good rate control prior to admission, therefore RVR likely secondary to volume overload. She's been in a- fib 100% since March 2021 so that would likely not contribute to her acute symptoms. Consider dietary indiscretion. She is net negative on BID Lasix and but still examines hypervolemic. Output has slowed some today. She is still requiring supplemental O2. BNP down-trending. BUN creeping up but Cr stable. Electrolytes acceptable. Continue Lasix to 40 mg IV BID with a goal of negative 1-2 L/day. Would consider increasing to 80 mg IV if not 1-2 L negative with clinical improvement by tomorrow. Continue to monitor kidney function and electrolytes. Daily STANDING weights. Low sodium diet. Strict I&Os. Dual-chamber pacemaker: Follows with Dr. De Paz. Atrial fibrillation: She remains in atrial fibrillation which has been persistent and is possibly permanent. Rate is well controlled since her initial presentation. Continue beta shara therapy and Diltiazem for rate control. Continue anticoagulation for stroke risk reduction. High blood pressure: Her blood pressure is well controlled. Optimize volume status as above. Mitral regurgitation: Mild. Continue to monitor. Disposition: Will continue to follow during hospitalization but will be unavailable over the weekend. Please reach out to Dr. Borjas who is covering if needed. Plan to enroll in the [facility] HF program. Outpatient follow up 02/20/22 at 10:30am Admission and Anticipated Discharge Date Admission Date: February 11, 2022 Subjective Patient reports she continues to do well. She is sitting in the bedside chair. PT is working with her. O2 was stable at rest on RA but after ambulation dropped into the low 80%s. O2 2 L resumed. Her edema is stable, she feels this is consistent with her baseline. She denies chest pain, palpitations, or cough. Telemetry reviewed- afib paced 60s-80s. Physical Exam Physical Exam: Constitutional: Alert, oriented, in no acute distress. Supplemental O2. HEENT: Head is atraumatic and normocephalic. EOMs intact. Sclera non-icteric. Neck: Supple, + JVD jail to the mandible Pulmonary: Normal respiratory effort, faint bibasilar crackles, otherwise clear to auscultation throughout Cardiac: Irregularly irregular, normal S1 and S2, no gallops, no rubs, no murmurs Extremities: 1+ lower extremity edema bilaterally. No clubbing or cyanosis. Pulses intact Abdomen: Normal bowel sounds, soft, non-tender, no abdominal masses palpated Skin: Normal skin color, turgor, and pigmentation. No rash or skin lesions Neurological: Oriented to person, place, and time Results & Data ([facility]) Vital Signs (Past 12 Hours) Vital Signs Temp Pulse Resp BP Pulse Ox 02/15/22 11:46 98.2 F 72 18 131/61 95 02/15/22 08:09 98.6 F 75 18 124/69 96 02/15/22 03:39 97.7 F 73 20 116/68 93 PG Care Time/CCT Total # of Minutes Spent Total Time Spent with Patient: Total time spent is greater than 50% in coordination of care (as documented) at patient's floor/unit and/or counseling patient: Coding Level of Care Code 31851 Subseq Hosp Care Lvl 3 Diagnoses Acute on chronic heart failure with preserved ejection fraction (HFpEF) I50.33 Hypertension I10 Hypertension type: essential hypertension Atrial fibrillation I48.91 Chronic kidney disease, stage 3a N18.31 Mitral regurgitation I34.0 Bifascicular bundle branch block I45.2 Sinus bradycardia R00.1 Status post placement of cardiac pacemaker Z95.0 (1) Hypertension Hypertension type: essential hypertension Qualified Code(s): I10 - Essential (primary) hypertension
--- NOTE | 2022-02-15 16:03 | Hospitalist Progress Note ---
Date of Service February 15, 2022 Assessment & Plan (1) Acute on chronic diastolic (congestive) heart failure: Plan: Patient presents volume overloaded. Last echo was in January 2020. Follows with [facility] Cardiology. Possible reasons for decompensation include poorly controlled a.fib, dietary indiscretion, worsening LV function, etc. Continue Lasix Follow-up with cardiology recommendation Obtain pacemaker interrogation Continue metoprolol 100mg BID. (2) Acute respiratory failure with hypoxia: Plan: Improving (3) Status post placement of cardiac pacemaker: Plan: for SSS. follows with Dr Cordell De Paz, [facility] Cardiology. pacemaker interrogation in am requested. (4) Atrial fibrillation: Plan: patient presented with mild rapid a.fib. Rates already improved since arrival. Cont BB. Cont CCB. Cont Eliquis 5mg BID (although she is 86yo she meets criteria for the 5mg based on weight & renal Fx). Pacemaker interrogation requested to check a.fib burden (last office visit suggested that she likely has permanent a.fib as opposed to PAF). Place on telemetry. (5) Chronic kidney disease, stage 3a: Plan: baseline CrCl 40s bmp daily while being diuresed (6) Hyperlipidemia: Plan: cont statin agent (7) Hypertension: Plan: BPs mildly high upon presentation. Improved s/p lasix IV and resumption of typical meds. Cont CCB, BB, and lisinopril. (8) Candidal diaper rash: Plan: nystatin powder TID to groin, skin folds, etc (9) Primary gout: Plan: no flare at this time cont allopurinol prophylaxis (10) DVT prophylaxis: Plan: Eliquis 5mg BID. Plan: will need PT/OT while here updated at bedside Admission and Anticipated Discharge Date Admission Date: February 11, 2022 Subjective Patient reports she continues to do well. She is sitting in the bedside chair. PT is working with her. O2 was stable at rest on RA but after ambulation dropped into the low 80%s. O2 2 L resumed. Her edema is stable, she feels this is consistent with her baseline. She denies chest pain, palpitations, or cough. Telemetry reviewed- afib paced 60s-80s. Review of Systems Review of Systems: gen - no fevers but has felt cold; lack of appetite for several days; HENT - chronic tinnitus; some dysphagia; dry mouth eyes - no visual changes last few days neck - occasional neck pain only CV - no chest pain; +LE edema, +orthopnea, +PND Pulm - dyspnea on exertion climbing a flight of stairs or traveling room to room GI - no vomiting, diarrhea; +bloating & early satiety last few days; no BRBPR; +constipation - urinary incontinence x 24 hours; no dysuria musculo - chronic b/l hip and knee pain neuro - no headaches endo - no diabetes skin - no rash Physical Exam Physical Exam: gen - pleasant, NAD eyes - PERRL HENT - TMs clear b/l, nose clear, mouth with dry MM neck - supple, JVD fpc to mandible heart - irregularly irregular, s1 s2, no murmur lungs - bilateral basilar rales without wheeze or increased work of breathing abd - protuberant, BS+, +hepatojugular reflex, NT ext - 1+ edema b/l, pulses 2+ b/l neuro - strength 5/5 x 4 exts, DTRs 2+ b/l x 4 exts skin - no rash psych - a/o x 3 lymph - no cervical lymph nodes musculo - b/l knee OA changes Results & Data Results & Data ([facility]) Vital Signs (Past 12 Hours) Vital Signs Temp Pulse Pulse Resp BP Pulse Ox 02/15/22 14:57 60 02/15/22 11:46 36.8 C 72 18 131/61 95 02/15/22 08:09 37.0 C 75 18 124/69 96 PG Care Time/CCT Total # of Minutes Spent Total Time Spent with Patient: Total time spent is greater than 50% in coordination of care (as documented) at patient's floor/unit and/or counseling patient: Coding Level of Care Code 32543 Subseq Obs Care Lvl 2 Diagnoses Acute on chronic diastolic (congestive) heart failure I50.33 Acute respiratory failure with hypoxia J96.01 Status post placement of cardiac pacemaker Z95.0 Atrial fibrillation I48.91 Chronic kidney disease, stage 3a N18.31 Hyperlipidemia E78.5 Hyperlipidemia type: unspecified Hypertension I10 Hypertension type: essential hypertension Candidal diaper rash B37.2; L22 Primary gout M10.00 DVT prophylaxis Z29.9 (1) Hyperlipidemia Hyperlipidemia type: unspecified Qualified Code(s): E78.5 - Hyperlipidemia, unspecified (2) Hypertension Hypertension type: essential hypertension Qualified Code(s): I10 - Essential (primary) hypertension
[2022-02-16] MEDS: dilTIAZem HCL 180 MG CAPCR PO SCH (07:48)
[2022-02-16] MEDS: allopurinoL 100 MG TAB PO SCH (07:48)
[2022-02-16] MEDS: CYANOCOBALAMIN (B-12) 500 MCG TABLET PO SCH (07:48)
[2022-02-16] MEDS: lisinopril 20 MG TAB PO SCH (07:48)
[2022-02-16] MEDS: FUROSEMIDE 40 MG/4 ML VIAL IV SCH ×2 (07:49→16:40)
[2022-02-16] MEDS: METOPROLOL TARTRATE 100 MG TAB PO SCH (07:49)
[2022-02-16] MEDS: APIXABAN 5 MG TABLET PO SCH (07:49)
[2022-02-16] MEDS: NYSTATIN POWDER 15GM BTL EXT SCH ×2 (07:49→15:48)
[2022-02-16] MEDS: ATORVASTATIN 10 MG TAB PO SCH (07:49)
[2022-02-16 08:38] LABS: BUN Creatinine Ratio 34.6 (10-20); Calcium 9.4 mg/dl (8.5-10.1); Creatinine Clr Calc Pharmacy 42.4 ml/min; Est GFR (African American) 54.8 ml/min; Est GFR (Non-African American) 47.3 ml/min; Potassium 3.8 mmol/L (3.5-5.1)
--- NOTE | 2022-02-16 18:52 | Discharge Summary ---
Date of Service February 16, 2022 Admission HPI Per Admitting Provider 86yo female with permanent a.fib on Eliquis, pacemaker, HTN, thyroid nodule, and chronic diastolic CHF presented with 8-9 pounds of weight gain over 1-2 weeks, worsening dyspnea on exertion for similar period of time, cough, orthopnea and PND x 2 nights (severe), chronic edema of both legs, urinary incontinence x 24 hours, and lack of appetite for several days. Denies fevers, but has felt cold. She reports compliance with her cardiac meds including lasix which she takes 40mg of daily. Denies indiscretion with her diet. Principal Diagnosis CHF exacerbation Discharge Exam gen - pleasant, NAD eyes - PERRL HENT - TMs clear b/l, nose clear, mouth with dry MM neck - supple, JVD alf to mandible heart - irregularly irregular, s1 s2, no murmur lungs - bilateral basilar rales without wheeze or increased work of breathing abd - protuberant, BS+, +hepatojugular reflex, NT ext -no edema b/l, pulses 2+ b/l neuro - strength 5/5 x 4 exts, DTRs 2+ b/l x 4 exts skin - no rash psych - a/o x 3 lymph - no cervical lymph nodes musculo - b/l knee OA changes Discharge Data Allergies Allergy/AdvReac Type Severity Reaction Status Date / Time No Known Allergies Allergy Verified 02/11/22 14:51 Consultations 02/11/22 15:19 ED Decision to Admit Stat 02/11/22 18:08 [facility] Referral Routine Hospital Course (1) Acute on chronic diastolic (congestive) heart failure: Patient presents volume overloaded. Last echo was in January 2020. Follows with [facility]. It is unclear what triggered her acute decompensated heart failure, patient compliant with her medications, follow diet, interrogation of the pacemaker did not show any malignant arrhythmia, patient started on Lasix 40 mg twice daily responded well, currently patient is euvolemic, patient was discharged on Lasix 40 mg twice daily, patient used to take Lasix 40 mg daily patient is required to have BMP 1 week and to be reassessed from volume status again, patient has a follow-up with cardiology in 1 week, continue metoprolol 100 mg twice daily (2) Acute respiratory failure with hypoxia: Improving (3) Status post placement of cardiac pacemaker: for SSS. follows with Dr Cordell De Paz, [facility]. pacemaker interrogation in am requested. (4) Atrial fibrillation: patient presented with mild rapid a.fib. Rates already improved since arrival. Cont BB. Cont CCB. Cont Eliquis 5mg BID (although she is 86yo she meets criteria for the 5mg based on weight & renal Fx). Pacemaker interrogation requested to check a.fib burden (last office visit suggested that she likely has permanent a.fib as opposed to PAF). Place on telemetry. (5) Chronic kidney disease, stage 3a: baseline CrCl 40s bmp daily while being diuresed (6) Hyperlipidemia: cont statin agent (7) Hypertension: BPs mildly high upon presentation. Improved s/p lasix IV and resumption of typical meds. Cont CCB, BB, and lisinopril. (8) Candidal diaper rash: nystatin powder TID to groin, skin folds, etc (9) Primary gout: no flare at this time cont allopurinol prophylaxis (10) DVT prophylaxis: Eliquis 5mg BID. will need PT/OT while here updated at bedside Total Time Total Time Spent Total Time Spent (In Minutes): 36 minutes Discharge Plan Discharge Items Patient Disposition: Home - Self-Care Reason For Visit: ACUTE/CHRONIC DIASTOLIC CHF; A.FIB Discharge Diagnosis: CHF exacerbation acute on chronic diastolic type Condition on Discharge: Fair Health Concerns: Inadequate diuresis, acute kidney injury due to Lasix Goals: Keep her out of hospital Activity: Resume your previous activity Lifting: Gradually increase as tolerated and No more than 5 pounds Bathing: No limitations Sexual Activity: When tolerated Exercise/Sports: Gradually increase as tolerated Driving/Machine Use: No limitations Weightbearing: Full weightbearing Non-emergency contact: Primary Care Provider and Furnace Mechanic Helper Call non-emergency contact if: your symptoms worsen Follow-up/Referrals: Lian Baker PA-C [Primary Care Provider] - ( Dose of Lasix has increased from 40 mg daily to 40 mg twice daily please check the BMP in 1 week after discharge) Alejandrina Bravo PA-C [Physician Launch Engineer] - 02/20/22 10:30 am (Congestive Heart Failure Program Appointment Information Early follow up is essential to managing your heart failure. An appointment has been scheduled for you with the [facility] Failure Program within 7 days of discharge. Anticipate this visit to be 30-60 minutes long. Please expect a radar scientist phone call from one of our nurses approximately 48 hours from discharge. They will also be placing an order for lab work to be completed 1-2 days prior to your heart failure follow up appointment. Please be sure to have this done so we can go over the results when you come in. Office Location The cardiology office building is located in front of the hospital at [address]. Bring the following with you to your follow-up doctor appointments: Please bring your daily weight log any discharge paperwork all of your medication bottles with you to this visit. ) Diet: Low Sodium (2gm) Fluids: 1200ml (5 cups) Addtl Attending Provider Instructions: Patient has refractory heart failure, required high dose of diuretics Pending Studies at Discharge: No Stand-Alone Forms: My [facility], Smoking Cessation Medications and DC Order Prescriptions: Continued metoprolol tartrate 100 mg tablet 100 mg PO BID Qty: 180 RF: 3 (DME) Incentive Spirometer Misc See Rx Instructions .MEDSUPPLY Qty: 1 RF: 0 cyanocobalamin (vitamin B-12) 1,000 mcg tablet 1,000 mcg PO QAM RF: 0 atorvastatin 10 mg tablet 10 mg PO QAM RF: 0 diltiazem HCl 180 mg capsule,extended release 24hr 180 mg PO QAM RF: 0 lisinopril 20 mg tablet 20 mg PO QAM RF: 0 allopurinol 100 mg tablet 100 mg PO QAM RF: 0 potassium chloride [Klor-Con 8] 8 mEq tablet extended release 8 meq PO QAM RF: 0 Eliquis 5 mg tablet 5 mg PO BID Qty: 60 RF: 5 Changed furosemide 20 mg tablet 40 mg PO BID Qty: 0 RF: 0 Discharge Orders: Discharge Order (Routine); Ordered 02/16/22 Ordered By: Ori Genao/Other Patient Handouts: Heart Failure Meds, What Is Heart Failure, M edicines for Heart Disease, My Heart Failure Symptoms Chart Admission Data Admit Date/Time: 02/11/22 16:01 Attending Provider: Ori Jacobs Admit Provider: Micah Salazar Primary Care Provider: Lian Baker Other Providers: SiMicah sanabria Jennifer M. Other Interventions: Discharge Summary Assessment (RN) Last Done: 02/16/22 17:00 Coding Level of Care Code D/C DAY MANAGEMENT >30 MINS Diagnoses Acute on chronic diastolic (congestive) heart failure I50.33 Acute respiratory failure with hypoxia J96.01 Status post placement of cardiac pacemaker Z95.0 Atrial fibrillation I48.91 Chronic kidney disease, stage 3a N18.31 Hyperlipidemia E78.5 Hyperlipidemia type: unspecified Hypertension I10 Hypertension type: essential hypertension Candidal diaper rash B37.2; L22 Primary gout M10.00 DVT prophylaxis Z29.9
== END 2022-02-16 17:40 | disposition home or self-care (01) | DRG 291 ==
LOC: ED 11:08 → SUATTDRO 16:01 → 2S 16:01
DX: Z95.0 Presence of cardiac pacemaker; K21.9 Gastro-esophageal reflux disease without esophagitis; I13.0 Hypertensive heart and chronic kidney disease with heart failure and stage 1 through stage 4 chronic kidney disease, or unspecified chronic kidney disease; Z79.01 Long term (current) use of anticoagulants; I34.0 Nonrheumatic mitral (valve) insufficiency; J96.01 Acute respiratory failure with hypoxia; I45.2 Bifascicular block; E78.5 Hyperlipidemia, unspecified; N18.31 Chronic kidney disease, stage 3a; I48.21 Permanent atrial fibrillation; R00.1 Bradycardia, unspecified; M10.9 Gout, unspecified; I50.33 Acute on chronic diastolic (congestive) heart failure; B37.2 Candidiasis of skin and nail

== ENCOUNTER 2022-03-18 16:58 | Inpatient (IN) ==
--- NOTE | 2022-03-18 18:54 | XRay Report ---
SINGLE VIEW CHEST CLINICAL HISTORY: Dyspnea. FINDINGS: An AP, portable, upright chest radiograph is compared to study dated 02/11/2022 and correlat ed with chest CT dated 08/14/2021. A 2-lead cardiac pacemaker is unchanged in position. The heart is e nlarged noting atherosclerotic calcification of the thoracic aorta. There is prominence of the pulmon alessandra vasculature. Chronic interstitial thickening is similar to previous. Small pleural effusions are suspected with dependent opacities. No pneumothorax is seen. The skeletal structures are osteopenic. The bony thorax is grossly intact. Calcific tendinopathy is noted in both shoulders. Degenerative loyd nge is seen throughout the thoracic spine. IMPRESSION: 1. Cardiomegaly and AICD with prominence of the pulmonary vasculature. Correlate clinically for evide nce of mild congestive failure. 2. Suspect small pleural effusions. 3. Dependent opacities likely represent atelectasis. Clinical correlation will be required. ACT 112: Negative or not required by law. Electronically signed by: Tommy Martinez M.D. 03/18/2022 6:52 PM
--- NOTE | 2022-03-18 18:56 | Emergency Department Note ---
Impression & Plan Hypoxia, CHF (congestive heart failure), Breath shortness ED Provider Note NAME: JASMYN ROBLES AGE: 87 SEX: F : 1935 ARRIVES VIA: Walk-In INFORMANT: Patient ED PROVIDER(S): Jeff Weber DO CHIEF COMPLAINT: Shortness of breath HPI: Patient is an 87-year-old female with a past medical history of acute on chronic heart failure, CKD, pleural effusions, sick sinus syndrome, A. fib who presents the ER for worsening shortness of breath. She notes everything started Friday with a cough and shortness of breath. She can no longer lie flat as she is significantly short of breath as well is up moving around. This been progressing since Friday. She notes that the cough is mainly dry. No belly pain, nausea, vomiting, or diarrhea. No chest pain. No fevers. She believes her has been sick as well. She notes she has been taking her Lasix and has not missed any doses. The swelling in her legs has may be slightly worsened. ROS: See above HPI for pertinent positives & negatives. A total of 10 systems reviewed and were otherwise negative. PAST MEDICAL HISTORY:See Below PAST SURGICAL HISTORY:See Below FAMILY HISTORY:See Below SOCIAL HISTORY:See Below HOME MEDICATIONS:See Below ALLERGIES:See Below VITALS:See Below PHYSICAL EXAMINATION: GENERAL: Sitting up in bed, alert, well appearing, well nourished, no distress, non-toxic EYE EXAM: normal conjunctiva. OROPHARYNX: no exudate, no erythema, lips, buccal mucosa, and tongue normal and mucous membranes are moist NECK: supple, no nuchal rigidity, no adenopathy, non-tender LUNGS: Lungs diminished bilaterally. Normal chest wall mechanics HEART: no murmurs, S1 normal and S2 normal ABDOMEN: abdomen soft, non-tender, normo-active bowel sounds, no masses, no rebound or guarding. UPPER EXTREMITIES: upper extremities are grossly normal. LOWER EXTREMITIES: Pitting edema bilateral lower extremities NEURO EXAM: Normal sensorium, cranial nerves II-XII grossly intact, normal speech, no gross weakness of arms, no gross weakness of legs. MEDICAL DECISION MAKING: Patient is an 87-year-old female who presents ER for above-stated complaint. IV was established blood work was obtained. She was found to be hypoxic upon presentation. She was placed on 2 to 3 L nasal cannula. Labs show no significant leukocytosis or anemia. INR was 1.2. BMP with LFTs bilirubin and troponin was negative. Pro-Candelario was negative. Influenza and COVID and RSV were negative. She was initially given a dose of Levaquin and Lasix although I did favor that this is likely CHF in nature as her chest x-ray does support this as well. She was discussed with the hospitalist admitted for further work-up. Triage Nursing notes reviewed. Limited review of prior medical records performed Vital Signs: reviewed and remarkable for hypoxic Differential diagnosis: Differential diagnoses includes but is not limited to pneumonia, bronchitis, COPD/Asthma exacerbation, pneumothorax, pulmonary embolism, congestive heart failure, acute coronary syndrome ER treatment provided: See below Diagnostics interpreted by me: ECG: A. fib rate of 75 Left axis Right bundle branch QTC 473 Intermittently paced Cardiac Monitoring: An order was placed for continuous cardiac monitoring. The monitor shows a rate of 72 with sinus rhythm. Laboratory studies: As stated above and show below. Imaging studies: Portable AP upright 1 view chest shows cephalization Consultation(s): Discussed with [place] hospitalist for further evaluation for further evaluation Procedures: none Critical Care: I have personally spent 32 minutes of critical care time in the direct management of this patient. This includes bedside care, interpretation of diagnostic studies, and testing, discussion with consultants, patient, and fa naina members, and other required patient management activities. This 32 minutes is in excess of all separately billable procedures. Past Med/Surg History Medical History (Updated 03/19/22 @ 00:31 by Jeff Weber DO) Chronic diastolic CHF (congestive heart failure) Chronic kidney disease, stage 3a Cyst of breast GERD (gastroesophageal reflux disease) Hyperlipidemia Hypertension Idiopathic polyneuropathy Lichen sclerosus et atrophicus Nephrolithiasis Paroxysmal atrial fibrillation Thyroid nodule (03/2020) left sided, FNA suspicious for follicular neoplasm Vitamin D deficiency Surgical History H/O colonoscopy History of cataract surgery History of dilation and curettage History of kidney surgery History of permanent cardiac pacemaker placement S/P cholecystectomy S/P tubal ligation Family History Aunt Breast cancer maternal Grandmother (Maternal) Breast cancer Mother Cervical cancer Varicose veins of both lower extremities Heart disease Cancer Hypertension Hearing loss Myocardial infarction Brother Coronary heart disease Myocardial infarction Father Tetanus Denies family history of Ovarian cancer Prostate cancer Lung cancer Colorectal cancer Social History (Updated 02/11/22 @ 15:54 by Micah Salazar) Smoking Status: Never smoker Second Hand Exposure: No; Hx Alcohol Use: No Hx Substance Use: No Preferred Language: Dominican Communication Ability: Effective Hearing Ability: Normal Labeling Associate Required: No Beliefs That Will Affect Care: None marital status: Current Living Situation: Spouse Current Living Situation Comment: lives in [place] current occupational status: retired current occupation: worked in [employer] How many Children do You have: 3 Feels Safe at Home: Yes Childhood Exposure to Second-Hand Smoke: Yes (Mother smoked) caffeine: Yes Dental Care, Regularly: Yes Physical Activity Frequency: Does not Exercise Seatbelt Use: sometimes Sunscreen Use: Yes Assistive Devices: Cane and Glasses Allergies Allergies Allergy/AdvReac Type Severity Reaction Status Date / Time No Known Allergies Allergy Verified 03/18/22 21:04 Home Meds Home Medications Medication Instructions Recorded Confirmed cyanocobalamin (vitamin B-12) 1,000 mcg PO QAM tab 11/21/19 03/18/22 1,000 mcg tablet allopurinol 100 mg tablet 100 mg PO QAM 02/11/22 03/18/22 lisinopril 20 mg tablet 20 mg PO QAM 02/11/22 03/18/22 furosemide 40 mg tablet 40 mg PO QPM 03/18/22 03/18/22 furosemide 80 mg tablet 80 mg PO QAM 03/18/22 03/18/22 Previous Rx's Medication Instructions Recorded metoprolol tartrate 100 mg tablet 100 mg PO BID #180 tab 10/24/21 apixaban 5 mg tablet (Eliquis) 5 mg PO BID #60 tab 10/29/21 Incentive Spirometer #1 ea 01/30/22 atorvastatin 10 mg tablet 10 mg PO QAM #90 tab 03/06/22 diltiazem HCl 180 mg 180 mg PO QAM #90 cap 03/06/22 capsule,extended release 24 hr spironolactone 25 mg tablet 25 mg PO DAILY #30 tab 03/08/22 Results & Data (ED) Vital Signs Vital Signs - 24 hr 03/18/22 17:37 03/18/22 19:01 Temperature 37 C Temperature Source Oral Pulse Rate 80 72 Pulse Rate [Apical] 72 Pulse Rhythm Regular Pulse Strength Normal Respiratory Rate 22 20 Respiratory Effort / Characteristics Non-Labored Spontaneous Non-Labored Respiratory Depth Normal Normal Respiratory Pattern Regular Blood Pressure 107/66 Blood Pressure [Right Arm] 136/73 Blood Pressure Mean 79 Blood Pressure Mean [Right Arm] 94 Blood Pressure Position Sitting Pulse Oximetry 88 L 95 Oxygen Delivery Method Room Air Nasal Cannula Oxygen Flow Rate 2 Sepsis Recent Fever Within 48 Hours No Sepsis New/Unexplained Change in Mental Status No Sepsis Action Taken by Nursing No Action Required Laboratory Data Result diagrams: 03/18/22 18:39 03/18/22 18:39 Lab Results 03/18/22 03/18/22 03/18/22 Range/Units 18:39 18:39 18:39 WBC 7.55 (4.8-10.8) K/uL RBC 4.01 L (4.2-5.4) M/uL Hgb 12.3 (12.0-16.0) g/dL Hct 39.1 (37-47) % MCV 97.5 (80-100) fL MCH 30.7 (25-34) pg MCHC 31.5 L (32-36) g/dL RDW Std Deviation 52.8 H (36.4-46.3) fL RDW Coeff of Toney 14.8 H (11.5-14.5) % Plt Count 195 (130-400) K/uL MPV 10.7 H (7.4-10.4) fL Immature Gran % (Auto) 0.1 % Neut % (Auto) 55.5 % Lymph % (Auto) 33.5 % [place] % (Auto) 9.9 % Eos % (Auto) 0.7 % Baso % (Auto) 0.3 % Neut # (Auto) 4.19 (1.4-6.5) K/uL Lymph # (Auto) 2.53 (1.2-3.4) K/uL [place] # (Auto) 0.75 H (0.11-0.59) K/uL Eos # (Auto) 0.05 (0-0.5) K/uL Baso # (Auto) 0.02 (0-0.2) K/uL Immature Gran # (Auto) 0.01 (0.00-0.02) K/uL PT 13.1 H (9.0-12.0) Seconds INR 1.2 H (0.9-1.1) APTT 31.4 H (21.0-31.0) Seconds PTT Ratio 1.1 Sodium (136-145) mmol/L Potassium (3.5-5.1) mmol/L Chloride (98-107) mmol/L Carbon Dioxide (21-32) mmol/L Anion Gap (3-11) BUN (6-23) mg/dl Creatinine (0.6-1.2) mg/dl Est Cr Clr Drug Dosing ml/min Est GFR ( Amer) ml/min Est GFR (Non-Af Amer) ml/min BUN/Creatinine Ratio (10-20) Glucose (70-99(Fasting)) mg/dl Calcium (8.5-10.1) mg/dl Magnesium (1.7-2.4) mg/dl Total Bilirubin (0.2-1.0) mg/dl AST (13-39) U/L ALT (7-52) U/L Alkaline Phosphatase (34-104) U/L Troponin I High Sens 9.4 (0-14) pg/ml B-Natriuretic Peptide (0-100) pg/ml Total Protein (6.0-8.3) gm/dl Albumin (3.4-5.0) gm/dl Globulin (2.5-4.0) gm/dl Albumin/Globulin Ratio (0.9-2) Procalcitonin (0-0.5) ng/ml SARS-CoV-2 (PCR) (Negative) Influenza Type A (PCR) (Neg) Influenza Type B (PCR) (Neg) RSV (RT-PCR) (Neg) 03/18/22 03/18/22 03/18/22 Range/Units 18:39 18:39 18:39 WBC (4.8-10.8) K/uL RBC (4.2-5.4) M/uL Hgb (12.0-16.0) g/dL Hct (37-47) % MCV (80-100) fL MCH (25-34) pg MCHC (32-36) g/dL RDW Std Deviation (36.4-46.3) fL RDW Coeff of Toney (11.5-14.5) % Plt Count (130-400) K/uL MPV (7.4-10.4) fL Immature Gran % (Auto) % Neut % (Auto) % Lymph % (Auto) % [place] % (Auto) % Eos % (Auto) % Baso % (Auto) % Neut # (Auto) (1.4-6.5) K/uL Lymph # (Auto) (1.2-3.4) K/uL [place] # (Auto) (0.11-0.59) K/uL Eos # (Auto) (0-0.5) K/uL Baso # (Auto) (0-0.2) K/uL Immature Gran # (Auto) (0.00-0.02) K/uL PT (9.0-12.0) Seconds INR (0.9-1.1) APTT (21.0-31.0) Seconds PTT Ratio Sodium 141 (136-145) mmol/L Potassium 3.7 (3.5-5.1) mmol/L Chloride 101 (98-107) mmol/L Carbon Dioxide 33 H (21-32) mmol/L Anion Gap 7 (3-11) BUN 23 (6-23) mg/dl Creatinine 1.32 H (0.6-1.2) mg/dl Est Cr Clr Drug Dosing 33.5 ml/min Est GFR ( Amer) 42.2 ml/min Est GFR (Non-Af Amer) 36.4 ml/min BUN/Creatinine Ratio 17.4 (10-20) Glucose 96 (70-99(Fasting)) mg/dl Calcium 9.4 (8.5-10.1) mg/dl Magnesium 2.1 (1.7-2.4) mg/dl Total Bilirubin 0.6 (0.2-1.0) mg/dl AST 19 (13-39) U/L ALT 11 (7-52) U/L Alkaline Phosphatase 89 (34-104) U/L Troponin I High Sens (0-14) pg/ml B-Natriuretic Peptide 452 H (0-100) pg/ml Total Protein 7.6 (6.0-8.3) gm/dl Albumin 4.0 (3.4-5.0) gm/dl Globulin 3.6 (2.5-4.0) gm/dl Albumin/Globulin Ratio 1.1 (0.9-2) Procalcitonin < 0.05 (0-0.5) ng/ml SARS-CoV-2 (PCR) (Negative) Influenza Type A (PCR) (Neg) Influenza Type B (PCR) (Neg) RSV (RT-PCR) (Neg) 03/18/22 Range/Units 18:48 WBC (4.8-10.8) K/uL RBC (4.2-5.4) M/uL Hgb (12.0-16.0) g/dL Hct (37-47) % MCV (80-100) fL MCH (25-34) pg MCHC (32-36) g/dL RDW Std Deviation (36.4-46.3) fL RDW Coeff of Toney (11.5-14.5) % Plt Count (130-400) K/uL MPV (7.4-10.4) fL Immature Gran % (Auto) % Neut % (Auto) % Lymph % (Auto) % [place] % (Auto) % Eos % (Auto) % Baso % (Auto) % Neut # (Auto) (1.4-6.5) K/uL Lymph # (Auto) (1.2-3.4) K/uL [place] # (Auto) (0.11-0.59) K/uL Eos # (Auto) (0-0.5) K/uL Baso # (Auto) (0-0.2) K/uL Immature Gran # (Auto) (0.00-0.02) K/uL PT (9.0-12.0) Seconds INR (0.9-1.1) APTT (21.0-31.0) Seconds PTT Ratio Sodium (136-145) mmol/L Potassium (3.5-5.1) mmol/L Chloride (98-107) mmol/L Carbon Dioxide (21-32) mmol/L Anion Gap (3-11) BUN (6-23) mg/dl Creatinine (0.6-1.2) mg/dl Est Cr Clr Drug Dosing ml/min Est GFR ( Amer) ml/min Est GFR (Non-Af Amer) ml/min BUN/Creatinine Ratio (10-20) Glucose (70-99(Fasting)) mg/dl Calcium (8.5-10.1) mg/dl Magnesium (1.7-2.4) mg/dl Total Bilirubin (0.2-1.0) mg/dl AST (13-39) U/L ALT (7-52) U/L Alkaline Phosphatase (34-104) U/L Troponin I High Sens (0-14) pg/ml B-Natriuretic Peptide (0-100) pg/ml Total Protein (6.0-8.3) gm/dl Albumin (3.4-5.0) gm/dl Globulin (2.5-4.0) gm/dl Albumin/Globulin Ratio (0.9-2) Procalcitonin (0-0.5) ng/ml SARS-CoV-2 (PCR) NEGATIVE (Negative) Influenza Type A (PCR) Negative (Neg) Influenza Type B (PCR) Negative (Neg) RSV (RT-PCR) Negative (Neg) Administered Medications Apixaban (Apixaban 5 Mg Tablet) 5 mg PO BID KEN Stop: 04/17/22 22:30 Last Admin: 03/18/22 23:23 Dose: 5 mg Documented by: [id number] Guaifenesin (Guaifenesin 600 Mg Tabcr) 1,200 mg PO Q12 KEN Stop: 04/17/22 22:30 Last Admin: 03/18/22 23:21 Dose: 1,200 mg Documented by: [id number] Metoprolol Tartrate (Metoprolol Tartrate 100 Mg Tab) 100 mg PO BID KEN Stop: 04/17/22 22:30 Last Admin: 03/18/22 23:22 Dose: 100 mg Documented by: [id number] Spironolactone (Spironolactone 25 Mg Tab) 25 mg PO [id number] KEN Stop: 04/17/22 22:30 Last Admin: 03/18/22 23:22 Dose: 25 mg Documented by: [id number] Discontinued Medications Furosemide (Furosemide 40 Mg/4 Ml Vial) 40 mg IV ONE ONE Stop: 03/18/22 19:32 Last Admin: 03/18/22 20:08 Dose: 40 mg Documented by: [id number] Levofloxacin/Dextrose (Levaquin/D5w) 500 mg in 100 mls @ 100 mls/hr IV Q24H KEN Stop: 03/20/22 19:44 Last Admin: 03/18/22 20:04 Dose: Not Given Documented by: [id number] Imaging Data Radiologist's Impression: Chest X-Ray 03/18/22 17:42 SINGLE VIEW CHEST CLINICAL HISTORY: Dyspnea. FINDINGS: An AP, portable, upright chest radiograph is compared to study dated 02/11/2022 and correlated with chest CT dated 08/14/2021. A 2-lead cardiac pacemaker is unchanged in position. The heart is enlarged noting atherosclerotic calcification of the thoracic aorta. There is prominence of the pulmonary vasculature. Chronic interstitial thickening is similar to previous. Small pleural effusions are suspected with dependent opacities. No pneumothorax is seen. The skeletal structures are osteopenic. The bony thorax is grossly intact. Calcific tendinopathy is noted in both shoulders. Degenerative change is seen throughout the thoracic spine. IMPRESSION: 1. Cardiomegaly and AICD with prominence of the pulmonary vasculature. Correlate clinically for evidence of mild congestive failure. 2. Suspect small pleural effusions. 3. Dependent opacities likely represent atelectasis. Clinical correlation will be required. ACT 112: Negative or not required by law. Electronically signed by: Tommy Martinez M.D. 03/18/2022 6:52 PM Discharge Plan Visit Data Chief Complaint: Cough Stated Complaint: COUGHING, COLD, SOB ED Provider: Jeff Weber Discharge Problem: Hypoxia, CHF (congestive heart failure), Breath shortness Patient Disposition: Admitted As Inpatient Discharge Instructions Interventions: ED Discharge Assessment Last Done: 03/18/22 22:03 Discharge Problem: CHF (congestive heart failure) Qualifiers: Heart failure type: unspecified Heart failure chronicity: unspecified Qualified Code(s): I50.9 - Heart failure, unspecified
[2022-03-18 19:01] LABS: Basophils # (auto) 0.02 K/uL (0-0.2); Basophils % (auto) 0.3 %; Eosinophils # (auto) 0.05 K/uL (0-0.5); Eosinophils % (auto) 0.7 %; Hematocrit (blood only) 39.1 % (37-47); Hemoglobin 12.3 g/dL (12.0-16.0); Immature Granulocytes # (auto) 0.01 K/uL (0.00-0.02); Immature Granulocytes % (auto) 0.1 %; Lymphocytes # (auto) 2.53 K/uL (1.2-3.4); Lymphocytes % (auto) 33.5 %; Mean Corpuscular Hemoglobin 30.7 pg (25-34); Mean Corpuscular Hgb Conc 31.5 g/dL (32-36); Mean Corpuscular Volume 97.5 fL (80-100); Mean Platelet Volume 10.7 fL (7.4-10.4); Monocytes # (auto) 0.75 K/uL (0.11-0.59); Monocytes % (auto) 9.9 %; Neutrophils # (auto) 4.19 K/uL (1.4-6.5); Neutrophils % (auto) 55.5 %; Platelet Count 195 K/uL (130-400); RDW Coefficient of Variation 14.8 % (11.5-14.5); RDW Standard Deviation 52.8 fL (36.4-46.3); Red Blood Count 4.01 M/uL (4.2-5.4); White Blood Count 7.55 K/uL (4.8-10.8)
[2022-03-18 19:03] LABS: INR 1.2 (0.9-1.1); Partial Thromboplastin Ratio 1.1; Partial Thromboplastin Time 31.4 Seconds (21.0-31.0); Prothrombin Time 13.1 Seconds (9.0-12.0)
[2022-03-18 19:12] LABS: Albumin Globulin Ratio 1.1 (0.9-2); BUN Creatinine Ratio 17.4 (10-20); Bilirubin,Total 0.6 mg/dl (0.2-1.0); Calcium 9.4 mg/dl (8.5-10.1); Creatinine Clr Calc Pharmacy 33.5 ml/min; Est GFR (African American) 42.2 ml/min; Est GFR (Non-African American) 36.4 ml/min; Globulin 3.6 gm/dl (2.5-4.0); Magnesium 2.1 mg/dl (1.7-2.4); Potassium 3.7 mmol/L (3.5-5.1); Total Protein 7.6 gm/dl (6.0-8.3)
[2022-03-18] MEDS ORDERED: FUROSEMIDE 40 MG/4 ML VIAL IV ONE (19:31)
[2022-03-18 19:41] LABS: Influenza A virus by PCR Negative (Neg); Influenza B virus by PCR Negative (Neg); RSV by PCR Negative (Neg); SARS CoV2 RNA(COVID-19) InHosp NEGATIVE (Negative)
[2022-03-18] MEDS ORDERED: levoFLOXacin/D5W 500 MG/100 ML BAG IV SCH (19:45)
--- NOTE | 2022-03-18 20:50 | History & Physical Report ---
Date of Service March 18, 2022 Assessment & Plan (1) Acute on chronic heart failure with preserved ejection fraction (HFpEF): Plan: Acute on chronic respiratory failure/acute on chronic HFpEF exacerbation/PAF- The patient will be admitted to telemetry for serial cardiac enzymes, serial EKG's, cardiac rhythm monitoring Received Lasix 40 mg IV in ED placed on Lasix 40 mg IV twice daily, and increase spironolactone to 25 mg p.o. twice daily Nasal cannula oxygen, titrate to keep pulse ox 92-94% Most recent echo on 02/12/2022 with EF 55-60% Follow serial renal profile and magnesium levels (2) Hypertension: Plan: See above (3) Hyperlipidemia: Plan: Continue atorvastatin 10 mg daily (4) Chronic kidney disease, stage 3a: Plan: Creatinine 1.32 upon admission- Follow laboratory serially while diuresing (5) Acute respiratory failure with hypoxia: Plan: See above (6) Bilateral edema of lower extremity: Plan: Follow clinical examination (7) Paroxysmal atrial fibrillation: Plan: See above (8) Anticoagulant long-term use: Plan: Continue apixaban History of Present Illness Chief Complaint: The patient presents to the emergency department with complaint of 1 week of worsening shortness of breath, lower extremity edema and productive cough Primary Care Provider: NO PCP The patient is an 87-year-old female with a past medical history including HFpEF, hypertension, hyperlipidemia, CKD stage III yea, acute respiratory failure with hypoxia, lower extremity edema, idiopathic pulmonary cysts, pulmonary nodule, sick sinus syndrome status post AICD, paroxysmal atrial fibrillation, bifascicular bundle branch block and anemia. She was most recently admitted to [facility] from 02/11-02/16/2022 with a CHF exacerbation. This presentation is different than that she has a productive cough, which she did not have had previous hospitalization. Allergies Allergy/AdvReac Type Severity Reaction Status Date / Time No Known Allergies Allergy Verified 03/18/22 21:04 Home Medications Medication Instructions Recorded Confirmed Type cyanocobalamin (vitamin B-12) 1,000 mcg PO QAM tab 11/21/19 03/18/22 History 1,000 mcg tablet metoprolol tartrate 100 mg tablet 100 mg PO BID #180 tab 10/24/21 03/18/22 Rx apixaban 5 mg tablet (Eliquis) 5 mg PO BID #60 tab 10/29/21 03/18/22 Rx Incentive Spirometer #1 ea 01/30/22 03/08/22 Rx allopurinol 100 mg tablet 100 mg PO QAM 02/11/22 03/18/22 History lisinopril 20 mg tablet 20 mg PO QAM 02/11/22 03/18/22 History atorvastatin 10 mg tablet 10 mg PO QAM #90 tab 03/06/22 03/18/22 Rx diltiazem HCl 180 mg 180 mg PO QAM #90 cap 03/06/22 03/18/22 Rx capsule,extended release 24 hr spironolactone 25 mg tablet 25 mg PO DAILY #30 tab 03/08/22 03/18/22 Rx furosemide 40 mg tablet 40 mg PO QPM 03/18/22 03/18/22 History furosemide 80 mg tablet 80 mg PO QAM 03/18/22 03/18/22 History Past Med/Surg History Medical History (Updated 02/20/22 @ 10:01 by Alejandrina Bravo PA-C) Chronic diastolic CHF (congestive heart failure) Chronic kidney disease, stage 3a Cyst of breast GERD (gastroesophageal reflux disease) Hyperlipidemia Hypertension Idiopathic polyneuropathy Lichen sclerosus et atrophicus Nephrolithiasis Paroxysmal atrial fibrillation Thyroid nodule (03/2020) left sided, FNA suspicious for follicular neoplasm Vitamin D deficiency Surgical History H/O colonoscopy History of cataract surgery History of dilation and curettage History of kidney surgery History of permanent cardiac pacemaker placement S/P cholecystectomy S/P tubal ligation Family History Aunt Breast cancer maternal Grandmother (Maternal) Breast cancer Mother Cervical cancer Varicose veins of both lower extremities Heart disease Cancer Hypertension Hearing loss Myocardial infarction Brother Coronary heart disease Myocardial infarction Father Tetanus Denies family history of Ovarian cancer Prostate cancer Lung cancer Colorectal cancer Social History (Updated 02/11/22 @ 15:54 by Micah Salazar) Smoking Status: Never smoker Second Hand Exposure: No; Hx Alcohol Use: No Hx Substance Use: No Preferred Language: Zimbabwean Communication Ability: Effective Hearing Ability: Normal Hand Turner Required: No Beliefs That Will Affect Care: None marital status: Current Living Situation: Spouse Current Living Situation Comment: lives in [place] current occupational status: retired current occupation: worked in grocery stores, retail How many Children do You have: 3 Feels Safe at Home: Yes Childhood Exposure to Second-Hand Smoke: Yes (Mother smoked) caffeine: Yes Dental Care, Regularly: Yes Physical Activity Frequency: Does not Exercise Seatbelt Use: sometimes Sunscreen Use: Yes Assistive Devices: Cane Review of Systems Review of Systems: The patient denies chest pain, palpitations, sore throat, fevers, chills, sweats, nausea, vomiting, diarrhea , constipation, abdominal pain, pelvic pain, blood in urine or stool, dysuria, urinary frequency or urgency, lightheadedness, dizziness, headache, memory loss, loss of consciousness, rash, abnormal bruising or bleeding, imbalance, focal or generalized weakness, numbness or tingling in arms or legs, generalized arthralgias or myalgias, back or neck pain, or night sweats. The review of systems is otherwise negative other than for that already noted above, and at least 10 systems have been reviewed. Physical Exam Physical Exam: The patient is awake, alert and oriented 3, well developed and well nourished, normocephalic and atraumatic, lying in bed and in no acute distress. HEENT--PERRL, EOMI, mucous membranes and oropharynx dry. Neck--supple. No JVD. No bruits. Thyroid normal, trachea midline, no adenopathy. Heart--normal S1 and S2. No murmurs, rubs or gallops. Lungs--coarse breath sounds and crackles with wheezes bilaterally. no respiratory distress, no accessory muscle use. Abdomen--normal bowel sounds and soft. Nontender. Nondistended. Extremities--2+ bilateral pretibial pitting edema. Dermatologic--normal skin turgor, normal color, no abnormal lymph nodes, no rash. Neurologic--cranial nerves II through XII grossly intact. Rheumatologic--normal range of motion. Psychiatric--normal affect. Results & Data Results & Data ([facility]) Vital Signs (Past 12 Hours) Vital Signs Temp Pulse Pulse Resp BP BP Pulse Ox 03/18/22 19:01 72 72 20 136/73 95 03/18/22 17:37 37 C 80 22 107/66 88 L Laboratory Results Laboratory Results WBC 7.55 K/uL (4.8-10.8) 03/18/22 18: RBC 4.01 M/uL (4.2-5.4) L 03/18/22 18:39 Hgb 12.3 g/dL (12.0-16.0) 03/18/22 18:39 Hct 39.1 % (37-47) 03/18/22 18: MCV 97.5 fL (80-100) 03/18/22 18: MCH 30.7 pg (25-34) 03/18/22 18: MCHC 31.5 g/dL (32-36) L 03/18/22 18:39 RDW Std Deviation 52.8 fL (36.4-46.3) H 03/18/22 18: RDW Coeff of Toney 14.8 % (11.5-14.5) H 03/18/22 18: Plt Count 195 K/uL (130-400) 03/18/22 18: MPV 10.7 fL (7.4-10.4) H 03/18/22 18:39 Immature Gran % (Auto) 0.1 % 03/18/22 18:39 Neut % (Auto) 55.5 % 03/18/22 18:39 Lymph % (Auto) 33.5 % 03/18/22 18:39 Jerauld % (Auto) 9.9 % 03/18/22 18:39 Eos % (Auto) 0.7 % 03/18/22 18:39 Baso % (Auto) 0.3 % 03/18/22 18:39 Neut # (Auto) 4.19 K/uL (1.4-6.5) 03/18/22 18:39 Lymph # (Auto) 2.53 K/uL (1.2-3.4) 03/18/22 18:39 Jerauld # (Auto) 0.75 K/uL (0.11-0.59) H 03/18/22 18:39 Eos # (Auto) 0.05 K/uL (0-0.5) 03/18/22 18:39 Baso # (Auto) 0.02 K/uL (0-0.2) 03/18/22 18: Immature Gran # (Auto) 0.01 K/uL (0.00-0.02) 03/18/22 18:39 PT 13.1 Seconds (9.0-12.0) H 03/18/22 18:39 INR 1.2 (0.9-1.1) H 03/18/22 18:39 APTT 31.4 Seconds (21.0-31.0) H 03/18/22 18:39 PTT Ratio 1.1 03/18/22 18:39 Sodium 141 mmol/L (136-145) 03/18/22 18:39 Potassium 3.7 mmol/L (3.5-5.1) 03/18/22 18:39 Chloride 101 mmol/L (98-107) 03/18/22 18:39 Carbon Dioxide 33 mmol/L (21-32) H 03/18/22 18:39 Anion Gap 7 (3-11) 03/18/22 18:39 BUN 23 mg/dl (6-23) 03/18/22 18:39 Creatinine 1.32 mg/dl (0.6-1.2) H 03/18/22 18:39 Est Cr Clr Drug Dosing 33.5 ml/min 03/18/22 18:39 Est GFR ( Amer) 42.2 ml/min 03/18/22 18:39 Est GFR (Non-Af Amer) 36.4 ml/min 03/18/22 18:39 BUN/Creatinine Ratio 17.4 (10-20) 03/18/22 18:39 Glucose 96 mg/dl (70-99(Fasting)) 03/18/22 18:39 Calcium 9.4 mg/dl (8.5-10.1) 03/18/22 18:39 Magnesium 2.1 mg/dl (1.7-2.4) 03/18/22 18:39 Total Bilirubin 0.6 mg/dl (0.2-1.0) 03/18/22 18:39 AST 19 U/L (13-39) 03/18/22 18:39 ALT 11 U/L (7-52) 03/18/22 18:39 Alkaline Phosphatase 89 U/L (34-104) 03/18/22 18:39 Troponin I High Sens 9.4 pg/ml (0-14) 03/18/22 18:39 B-Natriuretic Peptide 452 pg/ml (0-100) H 03/18/22 18:39 Total Protein 7.6 gm/dl (6.0-8.3) 03/18/22 18:39 Albumin 4.0 gm/dl (3.4-5.0) 03/18/22 18:39 Globulin 3.6 gm/dl (2.5-4.0) 03/18/22 18:39 Albumin/Globulin Ratio 1.1 (0.9-2) 03/18/22 18:39 Procalcitonin < 0.05 ng/ml (0-0.5) 03/18/22 18:39 SARS-CoV-2 (PCR) NEGATIVE (Negative) 03/18/22 18:48 Influenza Type A (PCR) Negative (Neg) 03/18/22 18:48 Influenza Type B (PCR) Negative (Neg) 03/18/22 18:48 RSV (RT-PCR) Negative (Neg) 03/18/22 18:48 Impressions Chest X-Ray 03/18/22 17:42 SINGLE VIEW CHEST CLINICAL HISTORY: Dyspnea. FINDINGS: An AP, portable, upright chest radiograph is compared to study dated 02/11/2022 and correlated with chest CT dated 08/14/2021. A 2-lead cardiac p acemaker is unchanged in position. The heart is enlarged noting atherosclerotic calcification of the thoracic aorta. There is prominence of the pulmonary vasculature. Chronic interstitial thickening is similar to previous. Small pleural effusions are suspected with dependent opacities. No pneumothorax is seen. The skeletal structures are osteopenic. The bony thorax is grossly intact. Calcific tendinopathy is noted in both shoulders. Degenerative change is seen throughout the thoracic spine. IMPRESSION: 1. Cardiomegaly and AICD with prominence of the pulmonary vasculature. Correlate clinically for evidence of mild congestive failure. 2. Suspect small pleural effusions. 3. Dependent opacities likely represent atelectasis. Clinical correlation will be required. ACT 112: Negative or not required by law. Electronically signed by: Tommy Martinez M.D. 03/18/2022 6:52 PM Code Status & VTE Plan Code Status Full code VTE Prophylaxis Plan VTE Prophylaxis will be ordered: Yes PG Care Time/CCT Total # of Minutes Spent Total Time Spent with Patient: Total time spent is greater than 50% in coordination of care (as documented) at patient's floor/unit and/or counseling patient: Coding Level of Care Code 50811 Initial Inpt Care Lvl 3 Diagnoses Acute on chronic heart failure with preserved ejection fraction (HFpEF) I50.33 Hypertension I10 Hypertension type: essential hypertension Hyperlipidemia E78.5 Hyperlipidemia type: unspecified Chronic kidney disease, stage 3a N18.31 Acute respiratory failure with hypoxia J96.01 Bilateral edema of lower extremity R60.0 Paroxysmal atrial fibrillation I48.0 Anticoagulant long-term use Z79.01 (1) Hypertension Hypertension type: essential hypertension Qualified Code(s): I10 - Essential (primary) hypertension (2) Hyperlipidemia Hyperlipidemia type: unspecified Qualified Code(s): E78.5 - Hyperlipidemia, unspecified
[2022-03-18] MEDS ORDERED: ACETAMINOPHEN 325 MG TAB PO PRN (22:31)
[2022-03-18] MEDS ORDERED: ONDANSETRON INJ 2 MG/ML 2 ML VIAL IV PRN (22:31)
[2022-03-18] MEDS: guaiFENesin 600 MG TABCR PO SCH (23:21)
[2022-03-18] MEDS: METOPROLOL TARTRATE 100 MG TAB PO SCH (23:22)
[2022-03-18] MEDS: SPIRONOLACTONE 25 MG TAB PO SCH (23:22)
[2022-03-18] MEDS: APIXABAN 5 MG TABLET PO SCH (23:23)
[2022-03-19] MEDS: AZITHROMYCIN 500 MG in DEXTROSE 5% 250 ML IV SCH (05:16)
[2022-03-19 06:34] LABS: Basophils # (auto) 0.02 K/uL (0-0.2); Basophils % (auto) 0.3 %; Eosinophils # (auto) 0.06 K/uL (0-0.5); Eosinophils % (auto) 0.8 %; Hematocrit (blood only) 35.4 % (37-47); Hemoglobin 10.7 g/dL (12.0-16.0); Immature Granulocytes # (auto) 0.01 K/uL (0.00-0.02); Immature Granulocytes % (auto) 0.1 %; Lymphocytes # (auto) 2.08 K/uL (1.2-3.4); Lymphocytes % (auto) 29.1 %; Mean Corpuscular Hemoglobin 29.7 pg (25-34); Mean Corpuscular Hgb Conc 30.2 g/dL (32-36); Mean Corpuscular Volume 98.3 fL (80-100); Mean Platelet Volume 10.8 fL (7.4-10.4); Monocytes # (auto) 0.64 K/uL (0.11-0.59); Neutrophils # (auto) 4.34 K/uL (1.4-6.5); Neutrophils % (auto) 60.7 %; Platelet Count 169 K/uL (130-400); RDW Coefficient of Variation 14.8 % (11.5-14.5); RDW Standard Deviation 53.7 fL (36.4-46.3); White Blood Count 7.15 K/uL (4.8-10.8)
[2022-03-19 06:57] LABS: Albumin Level 3.6 gm/dl (3.4-5.0); BUN Creatinine Ratio 20.2 (10-20); Calcium 8.8 mg/dl (8.5-10.1); Creatinine Clr Calc Pharmacy 38.3 ml/min; Est GFR (African American) 50.4 ml/min; Est GFR (Non-African American) 43.5 ml/min; Phosphorus 3.9 mg/dl (2.5-4.9); Potassium 3.6 mmol/L (3.5-5.1)
[2022-03-19] MEDS: ATORVASTATIN 10 MG TAB PO SCH (08:36)
[2022-03-19] MEDS: dilTIAZem HCL 180 MG CAPCR PO SCH (08:36)
[2022-03-19] MEDS: METOPROLOL TARTRATE 100 MG TAB PO SCH ×2 (08:36→21:04)
[2022-03-19] MEDS: guaiFENesin 600 MG TABCR PO SCH ×2 (08:36→21:04)
[2022-03-19] MEDS: CYANOCOBALAMIN (B-12) 500 MCG TABLET PO SCH (08:36)
[2022-03-19] MEDS: allopurinoL 100 MG TAB PO SCH (08:36)
[2022-03-19] MEDS: SPIRONOLACTONE 25 MG TAB PO SCH ×2 (08:37→17:32)
[2022-03-19] MEDS: APIXABAN 5 MG TABLET PO SCH ×2 (08:37→21:04)
[2022-03-19] MEDS: cefTRIAXone SODIUM 2,000 MG in DEXTROSE 5% 50 ML IV SCH (08:41)
[2022-03-19] MEDS ORDERED: FUROSEMIDE 40 MG/4 ML VIAL IV SCH (09:00)
--- NOTE | 2022-03-19 09:25 | Electrocardiogram Report ---
Test Reason : Blood Pressure : / mmHG Vent. Rate : 068 BPM Atrial Rate : 034 BPM P-R Int : 000 ms QRS Dur : 140 ms QT Int : 432 ms P-R-T Axes : 000 -63 013 degrees QTc Int : 459 ms Atrial fibrillation with frequent ventricular-paced complexes Left axis deviation Right bundle branch block Inferior infarct , age undetermined T wave abnormality, consider lateral ischemia Abnormal ECG When compared with ECG of 18-MAR-2022 18:33, (unconfirmed) Vent. rate has decreased BY 7 BPM Confirmed by Antelmo Borjas ([id number]) on 03/19/2022 9:24:49 AM Referred By: Marla Lee Confirmed By:Antelmo Borjas
--- NOTE | 2022-03-19 09:40 | Electrocardiogram Report ---
Test Reason : Blood Pressure : / mmHG Vent. Rate : 075 BPM Atrial Rate : 075 BPM P-R Int : 000 ms QRS Dur : 132 ms QT Int : 424 ms P-R-T Axes : 000 -59 -05 degrees QTc Int : 473 ms Poor data quality, interpretation may be adversely affected Atrial fibrillation with occasional ventricular-paced complexes Left axis deviation Right bundle branch block Inferior infarct , age undetermined Abnormal ECG When compared with ECG of 11-FEB-2022 11:54, Electronic ventricular pacemaker now present Confirmed by Antelmo Borjas ([id number]) on 03/19/2022 9:40:11 AM Referred By: Marla Lee Confirmed By:Antelmo Borjas
--- NOTE | 2022-03-19 15:42 | Heart Failure Consultation ---
Date of Consultation March 19, 2022 Assessment & Plan (1) Acute on chronic heart failure with preserved ejection fraction (HFpEF): (2) Hypertension: (3) Atrial fibrillation: (4) Chronic kidney disease, stage 3a: (5) Mitral regurgitation: (6) Bifascicular bundle branch block: (7) Sinus bradycardia: (8) Status post placement of cardiac pacemaker: Acute HFpEF: Patient has been been having difficulty with fluid retention for several months. Initially suspected this may be tachycardia induced, however her rates have been well controlled since her last visit (to our knowledge). Also consider dietary indiscretion- patient currently denies. Small pleural effusions noted (previous thoracentesis). She has also noted increased lower extremity edema. BNP is elevated. She continues to require supplemental O2. She has been taking Lasix 80 mg am/40 mg pm at home. Patient confirms she has been adherent to this and has not skipped any doses. She has had minimal documented output since admission. Kidney function stable. Recommend increasing Lasix to 80 mg IV BID. Continue Spironolactone 25 mg BID. Continue to monitor kidney function and electrolytes. She seems to be below her dry weight according to the chart? Daily STANDING weights. Get a standing weight in AM. Low sodium diet. Strict I&Os. Dual-chamber pacemaker: Follows with Dr. De Paz. Device was interrogated last admission. Atrial fibrillation: She remains in atrial fibrillation which has been persistent and is possibly permanent. Rate is well controlled. Continue beta shara therapy and Diltiazem for rate control. Continue anticoagulation for stroke risk reduction. High blood pressure: Her blood pressure is well controlled. Optimize volume status as above. Mitral regurgitation: Mild. Continue to monitor. Disposition: *HF re-admission. Will continue to follow during hospitalization. Anticipate close outpatient follow up. History of Present Illness Attending Physician: Micah Salazar History of Present Illness Patient is an 86 year old female with history of persistent atrial fibrillation, hypertension, edema, pacemaker, sinus node dysfunction, bifascicular block. Dr. De Paz is her primary senior data quality analyst. Recent cardiac studies: 1. 02/12/22 Echo: LV systolic function normal. RV mildly dilated. Aortic valve sclerosis is mild, without significant stenosis. Mild MR. RVSP elevated at 50-60 mmHg. IVC mildly dilated. Patient was admitted 02/11/22. She presented with increasing dyspnea and edema. She also noted some orthopnea. She was in rapid afib at presentation. BNP elevated at 394. CXR with small bilateral pleural effusions and atelectasis. She was treated with Lasix 40 mg IV in the ED. Echocardiogram with preserved EF, mildly dilated RV and dilated IVC. She remained on supplemental O2 for most of her admission. Lower extremity edema is improved. She continued to respond and once euvolemic was converted to PO Lasix. She was discharged on 40 mg BID. She was most recently evaluated as an outpatient on 03/08/22. She was slightly hypervolemic but improving. She continued Lasix 80 mg am/40 mg pm. Spironolactone 25 mg was added. Dry weight 195 lb but suspect it may be lower given her exam. Patient presented to the ED on 03/18/22 with worsening shortness of breath, cough, and orthopnea x 3 days. She denies weight gain or dietary indiscretion. She had a telehealth visit with her PCP who advised her to come to the ED for evaluation. Patient was hypoxic on presentation and started on oxygen. CXR consistent with CHF. She was treated with Levaquin and Lasix. Spironolactone was increased to 25 mg BID and Lasix 40 mg IV BID. Patient was evaluated this morning. She continues to require supplemental O2. She does not feel much better clinically after one dose of Lasix. No significant urine output documented. Weight this morning is the same as yesterday. She continues to have a cough and orthopnea. She denies PND. She has mild lower extremity edema. Allergies Allergy/AdvReac Type Severity Reaction Status Date / Time No Known Allergies Allergy Verified 03/18/22 21:04 Home Medications Medication Instructions Recorded Confirmed Type cyanocobalamin (vitamin B-12) 1,000 mcg PO QAM tab 11/21/19 03/18/22 History 1,000 mcg tablet metoprolol tartrate 100 mg tablet 100 mg PO BID #180 tab 10/24/21 03/18/22 Rx apixaban 5 mg tablet (Eliquis) 5 mg PO BID #60 tab 10/29/21 03/18/22 Rx Incentive Spirometer #1 ea 01/30/22 03/08/22 Rx allopurinol 100 mg tablet 100 mg PO QAM 02/11/22 03/18/22 History lisinopril 20 mg tablet 20 mg PO QAM 02/11/22 03/18/22 History atorvastatin 10 mg tablet 10 mg PO QAM #90 tab 03/06/22 03/18/22 Rx diltiazem HCl 180 mg 180 mg PO QAM #90 cap 03/06/22 03/18/22 Rx capsule,extended release 24 hr spironolactone 25 mg tablet 25 mg PO DAILY #30 tab 03/08/22 03/18/22 Rx furosemide 40 mg tablet 40 mg PO QPM 03/18/22 03/18/22 History furosemide 80 mg tablet 80 mg PO QAM 03/18/22 03/18/22 History Patient History Medical History (Updated 03/19/22 @ 00:31 by Jeff Weber DO) Chronic diastolic CHF (congestive heart failure) Chronic kidney disease, stage 3a Cyst of breast GERD (gastroesophageal reflux disease) Hyperlipidemia Hypertension Idiopathic polyneuropathy Lichen sclerosus et atrophicus Nephrolithiasis Paroxysmal atrial fibrillation Thyroid nodule (03/2020) left sided, FNA suspicious for follicular neoplasm Vitamin D deficiency Surgical History H/O colonoscopy History of cataract surgery History of dilation and curettage History of kidney surgery History of permanent cardiac pacemaker placement S/P cholecystectomy S/P tubal ligation Family History Aunt Breast cancer maternal Grandmother (Maternal) Breast cancer Mother Cervical cancer Varicose veins of both lower extremities Heart disease Cancer Hypertension Hearing loss Myocardial infarction Brother Coronary heart disease Myocardial infarction Father Tetanus Denies family history of Ovarian cancer Prostate cancer Lung cancer Colorectal cancer Social History (Updated 02/11/22 @ 15:54 by Micah Salazar) Smoking Status: Never smoker Second Hand Exposure: No; Hx Alcohol Use: No Hx Substance Use: No Preferred Language: Uzbek Communication Ability: Effective Hearing Ability: Normal Mixer Tender Required: No Beliefs That Will Affect Care: None marital status: Current Living Situation: Spouse Current Living Situation Comment: lives in [place] current occupational status: retired 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 Supplemental O2 4L. HEENT: Head is atraumatic and normocephalic. EOMs intact. Sclera non-icteric. Neck: Supple, JVD noted fpc to the mandible at 30 degrees. + HJR. Pulmonary: Normal respiratory effort, course crackles throughout, frequent cough. Cardiac: Irregularly irregular, normal S1 and S2, no gallops, no rubs, no murmurs Extremities: 2+ lower extremity edema bilaterally. No clubbing or cyanosis. Pulses intact Abdomen: Normal bowel sounds, soft, non-tender, no abdominal masses palpated Skin: Normal skin color, turgor, and pigmentation. No rash or skin lesions Neurological: Oriented to person, place, and time Results & Data ([facility]) Vital Signs (Past 12 Hours) Vital Signs Temp Pulse Pulse Resp BP BP Pulse Ox 03/19/22 11:34 97.7 F 72 19 106/66 97 03/19/22 07:24 98.1 F 73 20 109/69 93 03/19/22 03:52 97.3 F L 71 18 130/77 96 Coding Level of Care Code 24832 Initial Inpt Care Lvl 3 Diagnoses Acute on chronic heart failure with preserved ejection fraction (HFpEF) I50.33 Hypertension I10 Hypertension type: essential hypertension Atrial fibrillation I48.91 Chronic kidney disease, stage 3a N18.31 Mitral regurgitation I34.0 Bifascicular bundle branch block I45.2 Sinus bradycardia R00.1 Status post placement of cardiac pacemaker Z95.0 (1) Hypertension Hypertension type: essential hypertension Qualified Code(s): I10 - Essential (primary) hypertension
[2022-03-19] MEDS ORDERED: IPRATROPIUM BROMIDE/ALBUTEROL respimat INH INH SCH (17:15)
[2022-03-19] MEDS: FUROSEMIDE 40 MG/4 ML VIAL IV SCH (17:32)
[2022-03-19] MEDS: BENZONATATE 100 MG CAPSULE PO SCH ×2 (17:34→21:03)
[2022-03-19] MEDS ORDERED: ALBUTEROL HFA 8 GM INHALER INH SCH (19:00)
[2022-03-19] MEDS: IPRATROPIUM BROMIDE HFA INHALER INH SCH (20:04)
[2022-03-19] MEDS: ALBUTEROL HFA 8 GM INHALER INH SCH (20:05)
--- NOTE | 2022-03-19 20:29 | Hospitalist Progress Note ---
Date of Service March 19, 2022 Assessment & Plan (1) Acute on chronic heart failure with preserved ejection fraction (HFpEF): Plan: Most recent echo on 02/12/2022 with EF 55-60% Follows with Ms Ofelia Bravo - CHF clinic - consult placed to her; care d/w Ms Bravo this am Will increase lasix to 80mg IV BID Cont aldactone 25mg BID Cont metoprolol 100mg BID I cannot rule out an infectious component to her presentation - bronchitis vs pneumonia COVID/RSV/flu negative, however plan for repeat BMP am recheck cxr - 2-view - in am as well (2) Acute respiratory failure with hypoxia: Plan: documented o2 sats of 88% at time of ER presentation with ongoing O2 requirements. documented RRs of 24-25 as well. severe cough/significant RICHARD. treat decompensated CHF. treating for possible CAP as well. add combivent + tessalon pearles for cough. (3) Hypertension: Plan: Controlled Cont home meds (4) Hyperlipidemia: Plan: Continue atorvastatin 10 mg daily (5) Chronic kidney disease, stage 3a: Plan: Creatinine 1.32 upon admission This is baseline for her BMP in am (6) Paroxysmal atrial fibrillation: Plan: Has been in a.fib since admission Likely permanent a.fib Cont BB Cont apixaban BID Cont diltiazem daily Telemetry (7) Anticoagulant long-term use: Plan: Continue apixaban (8) Abnormal chest xray: Plan: both she and her became ill about the same time. she may have a component of bronchitis vs community-acquired pneumonia. plan to repeat her cxr in am. cont rocephin/zithromax for now pending tomorrow's repeat imaging. Plan: will need PT/OT while here updated at bedside care d/w Ms Bravo Admission and Anticipated Discharge Date Admission Date: March 18, 2022 Subjective pt's is at bedside he reports that both of them came down with a respiratory illness about 1 week ago cough, congestion, feeling run down, etc. she also reports poor appetite over the last few days she feels a little better in comparison to yesterday but still with severe cough and still w/ NC O2 requirement tele overnight with rate controlled a.fib she reports compliance with lasix at home Review of Systems Review of Systems: gen - no fevers or chills cv - no chest pain; orthopnea present pulm - cough, congestion, dyspnea at rest & with exertion GI - no nausea Physical Exam Physical Exam: gen - severe bronchial cough, but no distress neck - sitting upright minimal JVD mouth - MMM heart - irregular, s1 s2, rate <100 lungs - diffuse crackles anteriorly and posteriorly; no wheeze; no increased work of breathing abd - soft NT ND BS+ ext - <1+ edema b/l psych - a/o x 3 Results & Data Results & Data ([facility]) Vital Signs (Past 12 Hours) Vital Signs Temp Pulse Resp BP BP Pulse Ox 03/19/22 20:05 77 19 95 03/19/22 19:17 36.4 C L 86 22 124/73 93 03/19/22 15:55 36.5 C 66 20 96/60 L 93 03/19/22 11:34 36.5 C 72 19 106/66 97 Laboratory Results Laboratory Results - last 24 hr 03/18/22 03/19/22 03/19/22 18:39 06:13 06:13 WBC 7.15 RBC 3.60 L Hgb 10.7 L Hct 35.4 L MCV 98.3 MCH 29.7 MCHC 30.2 L RDW Std Deviation 53.7 H RDW Coeff of Toney 14.8 H Plt Count 169 MPV 10.8 H Immature Gran % (Auto) 0.1 Neut % (Auto) 60.7 Lymph % (Auto) 29.1 [place] % (Auto) 9.0 Eos % (Auto) 0.8 Baso % (Auto) 0.3 Neut # (Auto) 4.34 Lymph # (Auto) 2.08 [place] # (Auto) 0.64 H Eos # (Auto) 0.06 Baso # (Auto) 0.02 Immature Gran # (Auto) 0.01 Sodium 141 Potassium 3.6 Chloride 102 Carbon Dioxide 32 Anion Gap 7 BUN 23 Creatinine 1.14 Est Cr Clr Drug Dosing 38.3 Est GFR ( Amer) 50.4 Est GFR (Non-Af Amer) 43.5 BUN/Creatinine Ratio 20.2 H Glucose 123 H Calcium 8.8 Phosphorus 3.9 Magnesium 2.0 Albumin 3.6 Procalcitonin < 0.05 PG Care Time/CCT Total # of Minutes Spent Total Time Spent with Patient: Total time spent is greater than 50% in coordination of care (as documented) at patient's floor/unit and/or counseling patient: Coding Level of Care Code 19227 Subseq Hosp Care Lvl 2 Diagnoses Acute on chronic heart failure with preserved ejection fraction (HFpEF) I50.33 Hypertension I10 Hypertension type: essential hypertension Hyperlipidemia E78.5 Hyperlipidemia type: unspecified Chronic kidney disease, stage 3a N18.31 Acute respiratory failure with hypoxia J96.01 Paroxysmal atrial fibrillation I48.0 Anticoagulant long-term use Z79.01 Abnormal chest xray R93.89 (1) Hyperlipidemia Hyperlipidemia type: unspecified Qualified Code(s): E78.5 - Hyperlipidemia, unspecified (2) Hypertension Hypertension type: essential hypertension Qualified Code(s): I10 - Essential (primary) hypertension
[2022-03-20] MEDS: AZITHROMYCIN 500 MG in DEXTROSE 5% 250 ML IV SCH (05:31)
[2022-03-20 06:43] LABS: Albumin Level 3.5 gm/dl (3.4-5.0); BUN Creatinine Ratio 23.8 (10-20); Creatinine Clr Calc Pharmacy 34.7 ml/min; Est GFR (African American) 44.7 ml/min; Est GFR (Non-African American) 38.5 ml/min; Phosphorus 4.2 mg/dl (2.5-4.9); Potassium 3.8 mmol/L (3.5-5.1)
[2022-03-20] MEDS: IPRATROPIUM BROMIDE HFA INHALER INH SCH ×4 (07:25→19:34)
[2022-03-20] MEDS: ALBUTEROL HFA 8 GM INHALER INH SCH ×4 (07:25→19:33)
[2022-03-20] MEDS: allopurinoL 100 MG TAB PO SCH (08:08)
[2022-03-20] MEDS: BENZONATATE 100 MG CAPSULE PO SCH ×3 (08:08→20:57)
[2022-03-20] MEDS: ATORVASTATIN 10 MG TAB PO SCH (08:08)
[2022-03-20] MEDS: guaiFENesin 600 MG TABCR PO SCH ×2 (08:08→20:57)
[2022-03-20] MEDS: CYANOCOBALAMIN (B-12) 500 MCG TABLET PO SCH (08:08)
[2022-03-20] MEDS: SPIRONOLACTONE 25 MG TAB PO SCH ×2 (08:08→15:57)
[2022-03-20] MEDS: APIXABAN 5 MG TABLET PO SCH ×2 (08:09→20:57)
[2022-03-20] MEDS: FUROSEMIDE 40 MG/4 ML VIAL IV SCH ×2 (08:09→15:58)
[2022-03-20] MEDS: METOPROLOL TARTRATE 100 MG TAB PO SCH ×2 (08:09→20:57)
[2022-03-20] MEDS: cefTRIAXone SODIUM 2,000 MG in DEXTROSE 5% 50 ML IV SCH (08:10)
--- NOTE | 2022-03-20 09:37 | XRay Report ---
XR chest 2V PA/lateral CLINICAL HISTORY: CHF vs pneumonia, interval change TECHNIQUE: 2 views of the chest were obtained. Comparison: Comparison is made to chest radiograph 03/18/2022 FINDINGS: Dual lead pacemaker is seen. Cardiomegaly is noted. Bibasilar airspace opacities are seen. Bilateral small pleural effusions are seen. IMPRESSION: Small bilateral pleural effusions, increased from prior exam. Bibasilar airspace opacities are favore d to represent atelectasis with or without superimposed pneumonia. Stable cardiomegaly. ACT 112: Negative or not required by law. Electronically signed by: Bryce Delatorre M.D. 03/20/2022 9:35 AM
[2022-03-20] MEDS: dilTIAZem HCL 180 MG CAPCR PO SCH (09:43)
--- NOTE | 2022-03-20 10:22 | Electrocardiogram Report ---
Test Reason : Blood Pressure : / mmHG Vent. Rate : 081 BPM Atrial Rate : 100 BPM P-R Int : 000 ms QRS Dur : 138 ms QT Int : 416 ms P-R-T Axes : 000 -61 074 degrees QTc Int : 483 ms Atrial fibrillation with occasional ventricular-paced complexes Left axis deviation Right bundle branch block Inferior infarct , age undetermined T wave abnormality, consider lateral ischemia Abnormal ECG When compared with ECG of 19-MAR-2022 05:21, Vent. rate has increased BY 13 BPM Confirmed by Antelmo Borjas ([id number]) on 03/20/2022 10:22:24 AM Referred By: Marla Lee Confirmed By:Antelmo Borjas
[2022-03-20] MEDS ORDERED: SODIUM CHLORIDE 0.65% NA SOLN 45 ML (OCEAN) PRN (13:37)
[2022-03-20] MEDS ORDERED: BENZONATATE 100 MG CAPSULE PO SCH (14:00)
[2022-03-20] MEDS ORDERED: BENZONATATE 100 MG CAPSULE PO ONE (14:00)
[2022-03-20] MEDS: MUPIROCIN 2% OINT 22 GM TUBE EXT SCH ×2 (14:20→20:58)
--- NOTE | 2022-03-20 20:44 | Hospitalist Progress Note ---
Date of Service March 20, 2022 Assessment & Plan (1) Acute on chronic heart failure with preserved ejection fraction (HFpEF): Plan: Ongoing. BMP stable. Cont lasix 80mg IV BID. Cont aldactone. Cont metoprolol. Most recent echo on 02/12/2022 with EF 55-60% Appreciate Ofelia Bravo's consultation from CHF clinic. I suspect a concomitant pneumonia process (see below). COVID/RSV/flu negative. BMP am. (2) Acute respiratory failure with hypoxia: Plan: documented o2 sats of 88% at time of ER presentation with ongoing O2 requirements. documented RRs of 24-25 as well. severe cough/significant RICHARD. treat decompensated CHF. treating for CAP. cont combivent + tessalon pearles for cough. Increase latter to 20mg TID. (3) Bilateral pneumonia: Plan: probable. cxr today with bibasilar infiltrates. sputum production, lack of appetite, and being sick fit with infectious process. cont rocephin. cont zithromax. day #2 of each. plan 7 days of abx treatment. (4) Hypertension: Plan: Controlled Cont home meds (5) Hyperlipidemia: Plan: Continue atorvastatin 10 mg daily (6) Chronic kidney disease, stage 3a: Plan: Creatinine 1.32 upon admission This is baseline for her BMP again today stable in face of diuresis (7) Paroxysmal atrial fibrillation: Plan: Has been in a.fib since admission Likely permanent a.fib Cont BB Cont apixaban BID Cont diltiazem daily controlled (8) Anticoagulant long-term use: Plan: Continue apixaban (9) Abnormal chest xray: Plan: both she and her became ill about the same time 7-10 days ago. suspect community-acquired pneumonia. repeat cxr today c/w such. cont rocephin/zithromax as above. (10) Epistaxis: Plan: bactroban ointment BID to both nares humidfy the O2 nasal saline spray q1h prn Plan: updated yesterday PT, OT consults requested Admission and Anticipated Discharge Date Admission Date: March 18, 2022 Subjective pt states cough is a little better dyspnea improved still with mild sputum production eating still not that great slept ok last pm once she fell asleep no chest pain no new symptoms Review of Systems Review of Systems: gen - no fevers, no chills cv - no PND; no edema pulm - no wheezes GI - no abd pain; had bowel movement this am ENT - epistaxis L nare Physical Exam Physical Exam: gen - ongoing cough, but looks better today neck - sitting upright still w/ JVD mouth - MMM heart - irregular, s1 s2, rate <100, 1-2/6 systolic murmur LLSB lungs - diffuse crackles anteriorly and posteriorly - modestly better today; no wheeze; no increased work of breathing; airation better today abd - soft NT ND BS+ ext - no edema b/l, pulses 2+ b/l psych - a/o x 3 Results & Data Results & Data ([facility]) Vital Signs (Past 12 Hours) Vital Signs Temp Pulse Resp BP Pulse Ox 03/20/22 19:54 36.5 C 82 20 113/72 90 03/20/22 19:34 81 18 93 03/20/22 16:00 36.6 C 94 H 18 101/54 L 96 03/20/22 15:21 68 24 94 03/20/22 11:51 36.5 C 94 H 20 94/50 L 99 03/20/22 11:03 82 22 94 Laboratory Results Laboratory Results - last 24 hr 03/20/22 05:22 Sodium 140 Potassium 3.8 Chloride 100 Carbon Dioxide 33 H Anion Gap 7 BUN 30 H Creatinine 1.26 H Est Cr Clr Drug Dosing 34.7 Est GFR ( Amer) 44.7 Est GFR (Non-Af Amer) 38.5 BUN/Creatinine Ratio 23.8 H Glucose 95 Calcium 9.0 Phosphorus 4.2 Albumin 3.5 PG Care Time/CCT Total # of Minutes Spent Total Time Spent with Patient: Total time spent is greater than 50% in coordination of care (as documented) at patient's floor/unit and/or counseling patient: Coding Level of Care Code 92096 Subseq Hosp Care Lvl 2 Diagnoses Acute on chronic heart failure with preserved ejection fraction (HFpEF) I50.33 Acute respiratory failure with hypoxia J96.01 Hypertension I10 Hypertension type: essential hypertension Hyperlipidemia E78.5 Hyperlipidemia type: unspecified Chronic kidney disease, stage 3a N18.31 Paroxysmal atrial fibrillation I48.0 Anticoagulant long-term use Z79.01 Abnormal chest xray R93.89 Bilateral pneumonia J18.9 Epistaxis R04.0 (1) Hyperlipidemia Hyperlipidemia type: unspecified Qualified Code(s): E78.5 - Hyperlipidemia, unspecified (2) Hypertension Hypertension type: essential hypertension Qualified Code(s): I10 - Essential (primary) hypertension
[2022-03-21] MEDS: AZITHROMYCIN 500 MG in DEXTROSE 5% 250 ML IV SCH (05:31)
[2022-03-21] MEDS: IPRATROPIUM BROMIDE HFA INHALER INH SCH ×4 (07:18→19:07)
[2022-03-21] MEDS: ALBUTEROL HFA 8 GM INHALER INH SCH ×4 (07:18→19:06)
[2022-03-21 07:31] LABS: BUN Creatinine Ratio 30.1 (10-20); Calcium 9.2 mg/dl (8.5-10.1); Creatinine Clr Calc Pharmacy 35.7 ml/min; Est GFR (Non-African American) 39.7 ml/min; Potassium 3.8 mmol/L (3.5-5.1)
[2022-03-21] MEDS: APIXABAN 5 MG TABLET PO SCH ×2 (08:46→20:26)
[2022-03-21] MEDS: guaiFENesin 600 MG TABCR PO SCH ×2 (08:46→20:27)
[2022-03-21] MEDS: SPIRONOLACTONE 25 MG TAB PO SCH ×2 (08:46→16:17)
[2022-03-21] MEDS: BENZONATATE 100 MG CAPSULE PO SCH ×3 (08:46→20:26)
[2022-03-21] MEDS: METOPROLOL TARTRATE 100 MG TAB PO SCH ×2 (08:46→20:27)
[2022-03-21] MEDS: CYANOCOBALAMIN (B-12) 500 MCG TABLET PO SCH (08:46)
[2022-03-21] MEDS: allopurinoL 100 MG TAB PO SCH (08:47)
[2022-03-21] MEDS: ATORVASTATIN 10 MG TAB PO SCH (08:47)
[2022-03-21] MEDS: cefTRIAXone SODIUM 2,000 MG in DEXTROSE 5% 50 ML IV SCH (08:47)
[2022-03-21] MEDS: MUPIROCIN 2% OINT 22 GM TUBE EXT SCH ×2 (08:48→20:27)
[2022-03-21] MEDS: FUROSEMIDE 40 MG/4 ML VIAL IV SCH ×2 (08:48→16:20)
[2022-03-21] MEDS: dilTIAZem HCL 180 MG CAPCR PO SCH (10:04)
--- NOTE | 2022-03-21 12:23 | Heart Failure Progress Note ---
Date of Service March 21, 2022 Assessment & Plan (1) Acute on chronic heart failure with preserved ejection fraction (HFpEF): (2) Hypertension: (3) Atrial fibrillation: (4) Chronic kidney disease, stage 3a: (5) Mitral regurgitation: (6) Bifascicular bundle branch block: (7) Sinus bradycardia: (8) Status post placement of cardiac pacemaker: Plan: Acute HFpEF: Patient has been been having difficulty with fluid retention for several months. Initially suspected this may be tachycardia induced, however her rates have been well controlled since her last visit (to our knowledge). Also consider dietary indiscretion- patient currently denies. Small pleural effusions noted (previous thoracentesis). She has also noted increased lower extremity edema. BNP is elevated. She continues to require supplemental O2. She has been taking Lasix 80 mg am/40 mg pm at home. Patient confirms she has been adherent to this and has not skipped any doses. Lasix increased to 80 mg IV BID. Kidney function stable. Continue diuretics. Continue Spironolactone 25 mg BID. Shaquille nue to monitor kidney function and electrolytes. She seems to be below her dry weight according to the chart? Daily STANDING weights. Get a standing weight in AM. Low sodium diet. Strict I&Os. Dual-chamber pacemaker: Follows with Dr. De Paz. Device was interrogated last admission. Atrial fibrillation: She remains in atrial fibrillation which has been persistent and is possibly permanent. Rate is well controlled. Continue beta shara therapy and Diltiazem for rate control. Continue anticoagulation for stroke risk reduction. High blood pressure: Her blood pressure is well controlled. Optimize volume status as above. Mitral regurgitation: Mild. Continue to monitor. Dyspnea/cough: Likely multifactorial- treating for CHF and pneumonia. Disposition: *HF re-admission. Will continue to follow during hospitalization. Anticipate close outpatient follow up. Admission and Anticipated Discharge Date Admission Date: March 18, 2022 Subjective Patient is sitting up in bed eating her breakfast. She reports she's feeling somewhat improved today. She is still requiring supplemental O2 but is down to 2 L. She is still having dyspnea on exertion when ambulating to the bathroom. She continues to have lower extremity edema. She is sleeping with her head elevated. Cough continues but not as severe. CXR yesterday concerning for pneumonia and antibiotics were initiated. I&Os are inaccurate- several unmeasured voids. Patient and nurse confirm good urine output. Her weight is 196 lb this am on standing scale. Physical Exam Physical Exam: Constitutional: Alert, oriented, in no acute distress. Supplemental O2 2L. HEENT: Head is atraumatic and normocephalic. EOMs intact. Sclera non-icteric. Neck: Supple, JVD noted residential to the mandible at 30 degrees. + HJR. Pulmonary: Normal respiratory effort, course crackles throughout, frequent cough. Cardiac: Irregularly irregular, normal S1 and S2, no gallops, no rubs, no murmurs Extremities: 2+ lower extremity edema bilaterally. No clubbing or cyanosis. Pulses intact Abdomen: Normal bowel sounds, soft, non-tender, no abdominal masses palpated Skin: Normal skin color, turgor, and pigmentation. No rash or skin lesions Neurological: Oriented to person, place, and time Results & Data ([facility]) Vital Signs (Past 12 Hours) Vital Signs Temp Pulse Resp BP Pulse Ox 03/21/22 11:52 98.1 F 80 18 104/69 97 03/21/22 11:17 86 20 94 03/21/22 08:03 97.9 F 79 20 115/68 95 03/21/22 07:20 82 20 96 03/21/22 04:39 97.9 F 66 18 113/74 97 PG Care Time/CCT Total # of Minutes Spent Total Time Spent with Patient: Total time spent is greater than 50% in coordination of care (as documented) at patient's floor/unit and/or counseling patient: Coding Level of Care Code 05587 Subseq Hosp Care Lvl 3 Diagnoses Acute on chronic heart failure with preserved ejection fraction (HFpEF) I50.33 Hypertension I10 Hypertension type: essential hypertension Atrial fibrillation I48.91 Chronic kidney disease, stage 3a N18.31 Mitral regurgitation I34.0 Bifascicular bundle branch block I45.2 Sinus bradycardia R00.1 Status post placement of cardiac pacemaker Z95.0 (1) Hypertension Hypertension type: essential hypertension Qualified Code(s): I10 - Essential (primary) hypertension
--- NOTE | 2022-03-21 15:34 | Hospitalist Progress Note ---
Date of Service March 21, 2022 Assessment & Plan (1) Acute on chronic heart failure with preserved ejection fraction (HFpEF): Plan: Patient continues to be net positive. Cumulative balance this admission is +101 5 mL Cont lasix 80mg IV BID and as ordered by the congestive heart failure clinic. Potassium stable and currently 3.8 -follow serial labs Cont aldactone. Cont metoprolol. Most recent echo on 02/12/2022 with EF 55-60% (2) Acute respiratory failure with hypoxia: Plan: Most likely multifactorial. Continue to treat CHF as above Procalcitonin is negative No leukocytosis Afebrile No hypercapnia Patient does have small bilateral pleural effusions which are most likely related to her congestive heart failure. I do not see any infiltrates or consolidations. Patient does have evidence of atelectasis Continue with incentive spirometry. Patient unable to tolerate flutter valve. We will order a pneumo vest to be used twice daily with pulmonary toileting documented o2 sats of 88% at time of ER presentation with ongoing O2 requirements. documented RRs of 24-25 as well. Continue mucolytic including Mucinex 1200 twice daily Patient empirically treated with ceftriaxone 2 g IV every 24 hours cont combivent + tessalon pearles 200 mg 3 times daily for cough as ordered by attending physician (3) Bilateral pneumonia: Plan: probable. cxr today with bibasilar infiltrates. sputum production, lack of appetite, and being sick fit with infectious process. cont rocephin (Day #3) Did receive zithromax. Plan for 7 days total of abx treatment per attending (4) Hypertension: Plan: Controlled Cont home meds (5) Hyperlipidemia: Plan: Continue atorvastatin 10 mg daily (6) Chronic kidney disease, stage 3a: Plan: Creatinine 1.32 upon admission This is baseline for her Follow BMP as patient continues to be diuresed (7) Paroxysmal atrial fibrillation: Plan: Has been in a.fib since admission Likely permanent a.fib Cont BB Cont apixaban BID Cont diltiazem daily controlled (8) Anticoagulant long-term use: Plan: Continue apixaban (9) Abnormal chest xray: Plan: both she and her became ill about the same time 7-10 days ago. suspect community-acquired pneumonia. Continue antibiotics as above (10) Epistaxis: Plan: bactroban ointment BID to both nares humidfy the O2 nasal saline spray q1h prn. Can keep at bedside Plan: updated yesterday PT, OT consults requested Admission and Anticipated Discharge Date Admission Date: March 18, 2022 Supervising Physician Co-Signing Physician Notes Attending Attestation - Chart reviewed in detail, care plan d/w MELISSA Norman. I agree w/ the judd components of his documentation. Micah Salazar MD Subjective Attending: Dr. Salazar Patient seen and examined in room 242. Patient has a bedside chair. She is in no acute distress. She reports that she continues to have difficulty with clearing sputum. She denies any fever. Shortness of breath is resolved with supplemental oxygen. She does complain of a dry nose secondary to the continuous oxygen. She has no epistaxis or other complications of such. Patient denies fever, chills, sweats, rigors. She has no sputum production. She denies hemoptysis. She has no other acute complaints at this time. Review of Systems Review of Systems: A total of 10 systems was reviewed and is negative other than as listed in the HPI Physical Exam Physical Exam: GENERAL : No acute distress. No respiratory distress. Sitting in bedside chair. EYES: No icterus, gaze conjugate NOSE: No evidence of epistaxis. Nasal cannula is in place MOUTH: No lesions or candidiasis. Mucosa is moist. Tongue is midline. NECK: Supple. No appreciation of stridor LUNGS: Good inspirational effort but deep breath does result in induced cough. Patient does have coarse crackles at the bases. She has no rhonchi in the upper [place]. There is no appreciation of bronchospasm HEART: Irregular, irregular with a rate in the 70s. ABDOMEN: Soft, NT, ND, BS Present EXTREMITIES: Trace bilateral LE edema, pedal pulses intact NEURO: A&OX3 Results & Data Results & Data ([facility]) Vital Signs (Past 12 Hours) Vital Signs Temp Pulse Resp BP Pulse Ox 03/21/22 15:04 71 18 90 03/21/22 11:52 36.7 C 80 18 104/69 97 03/21/22 11:17 86 20 94 03/21/22 08:03 36.6 C 79 20 115/68 95 03/21/22 07:20 82 20 96 03/21/22 04:39 36.6 C 66 18 113/74 97 Critical Care Results & Data Vital Signs (Past 12 Hours) Vital Signs Temp Pulse Resp BP Pulse Ox 03/21/22 15:45 36.3 C L 76 20 118/71 96 03/21/22 15:04 71 18 90 03/21/22 11:52 36.7 C 80 18 104/69 97 03/21/22 11:17 86 20 94 03/21/22 08:03 36.6 C 79 20 115/68 95 03/21/22 07:20 82 20 96 03/21/22 04:39 36.6 C 66 18 113/74 97 Lab & Micro Results (Past 24 Hours) No Data to Display Na 140 mmol/L (136-145) 03/22/22 K 4.0 mmol/L (3.5-5.1) 03/22/22 Cl 100 mmol/L (98-107) 03/22/22 CO2 34 mmol/L (21-32) H 03/22/22 Anion Gap 6 (3-11) 03/22/22 BUN 38 mg/dl (6-23) H 03/22/22 Creatinine 0.79 mg/dl (0.6-1.2) 03/22/22 Estimated GFR ( Amer) 78.6 ml/min 03/22/22 Estimated GFR (Non-Af Amer) 67.8 ml/min 03/22/22 BUN/Creatinine Ratio 48.1 (10-20) H 03/22/22 Glu 93 mg/dl (70-99(Fasting)) 03/22/22 Ca 9.3 mg/dl (8.5-10.1) 03/22/22 Calcium Level 9.3 mg/dl (8.5-10.1) 03/22/22 05:50 03/22/22 I & O Totals 24 Hours 03/20/22 03/21/22 03/22/22 06:59 06:59 06:59 Intake Total 1170 / 1170 705 / 705 940 / 940 Output Total 1300 / 1300 200 / 200 300 / 300 Balance -130 / -130 505 / 505 640 / 640 Cumulative 03/18/22 16:58 thru 03/21/22 15:15 Intake Total 2815 Output Total 1800 Balance 1015 RT Ventilator Mngmt (Last Documented) Ventilator Ordered Settings Respiratory Rate 20 03/21/22 15:45 Ventilator - PT Measurements Respiratory Rate 20 PG Care Time/CCT Total # of Minutes Spent Total Time Spent with Patient: Total time spent is greater than 50% in coordination of care (as documented) at patient's floor/unit and/or counseling patient: Coding Level of Care Code 99221 Subseq Hosp Care Lvl 2 Diagnoses Acute on chronic heart failure with preserved ejection fraction (HFpEF) I50.33 Acute respiratory failure with hypoxia J96.01 Bilateral pneumonia J18.9 Hypertension I10 Hypertension type: essential hypertension Hyperlipidemia E78.5 Hyperlipidemia type: unspecified Chronic kidney disease, stage 3a N18.31 Paroxysmal atrial fibrillation I48.0 Anticoagulant long-term use Z79.01 Abnormal chest xray R93.89 Epistaxis R04.0 (1) Hyperlipidemia Hyperlipidemia type: unspecified Qualified Code(s): E78.5 - Hyperlipidemia, unspecified (2) Hypertension Hypertension type: essential hypertension Qualified Code(s): I10 - Essential (primary) hypertension
[2022-03-22 06:36] LABS: BUN Creatinine Ratio 48.1 (10-20); Calcium 9.3 mg/dl (8.5-10.1); Creatinine Clr Calc Pharmacy 55.4 ml/min; Est GFR (African American) 78.6 ml/min; Est GFR (Non-African American) 67.8 ml/min
[2022-03-22] MEDS: ALBUTEROL HFA 8 GM INHALER INH SCH ×4 (07:46→19:06)
[2022-03-22] MEDS: IPRATROPIUM BROMIDE HFA INHALER INH SCH ×4 (07:47→19:06)
[2022-03-22] MEDS: guaiFENesin 600 MG TABCR PO SCH ×2 (10:07→20:38)
[2022-03-22] MEDS: BENZONATATE 100 MG CAPSULE PO SCH ×3 (10:07→20:40)
[2022-03-22] MEDS: SPIRONOLACTONE 25 MG TAB PO SCH ×2 (10:08→16:54)
[2022-03-22] MEDS: METOPROLOL TARTRATE 100 MG TAB PO SCH ×2 (10:08→20:39)
[2022-03-22] MEDS: APIXABAN 5 MG TABLET PO SCH ×2 (10:09→20:38)
[2022-03-22] MEDS: dilTIAZem HCL 180 MG CAPCR PO SCH (10:09)
[2022-03-22] MEDS: CYANOCOBALAMIN (B-12) 500 MCG TABLET PO SCH (10:09)
[2022-03-22] MEDS: ATORVASTATIN 10 MG TAB PO SCH (10:09)
[2022-03-22] MEDS: allopurinoL 100 MG TAB PO SCH (10:10)
[2022-03-22] MEDS: FUROSEMIDE 40 MG/4 ML VIAL IV SCH ×2 (10:11→16:53)
[2022-03-22] MEDS: cefTRIAXone SODIUM 2,000 MG in DEXTROSE 5% 50 ML IV SCH (10:15)
[2022-03-22] MEDS: MUPIROCIN 2% OINT 22 GM TUBE EXT SCH ×2 (10:17→20:37)
[2022-03-22] MEDS ORDERED: ALBUT/IPRATROP 3MG/0.5MG NEB 3 ML VIAL NEB STA (12:45)
--- NOTE | 2022-03-22 12:46 | Hospitalist Progress Note ---
Date of Service March 22, 2022 Assessment & Plan (1) Acute respiratory failure with hypoxia: Plan: Suspect combination of decompensated CHF + infectious etiology (bronchitis and/or pneumonia). Uncertain which etiology is playing a larger role. Her exam is largely unchanged from 2 days ago despite aggressive diuresis. Cont diuresis. Cont abx. Cont pulm toilet - incentive spirometry, flutter valve, pneumo vest, Mucinex 1200 twice daily. Try duoneb x 1 to see if this provides better relief of symptoms in comparison to the MDI. If so will change combivent to duonebs q6h. (2) Acute on chronic heart failure with preserved ejection fraction (HFpEF): Plan: Cont lasix 80mg IV BID. Will try zaroxylyn 2.5mg 30 min prior to evening dose of lasix to enact a larger diuresis Cont aldactone bid. Cont metoprolol. Most recent echo on 02/12/2022 with EF 55-60% (3) Bilateral pneumonia: Plan: probable. sputum production, lack of appetite, and being sick fit with infectious process. cont rocephin (Day #4) Did receive zithromax. Plan for 7 days total of abx (4) Hypertension: Plan: Controlled Cont home meds (5) Hyperlipidemia: Plan: Continue atorvastatin 10 mg daily (6) Chronic kidney disease, stage 3a: Plan: Creatinine 1.32 upon admission This is baseline Follow BMP daily (7) Paroxysmal atrial fibrillation: Plan: Has been in a.fib since admission Likely permanent a.fib Cont BB Cont apixaban BID Cont diltiazem daily Rates controlled (8) Anticoagulant long-term use: Plan: Continue apixaban (9) Abnormal chest xray: Plan: both she and her became ill about the same time 7-10 days ago. suspect community-acquired pneumonia. Continue antibiotics as above consider CT chest tomorrow if she has no clinical response to the above measures (10) Epistaxis: Plan: bactroban ointment BID to both nares humidfy the O2 nasal saline spray q1h prn. Plan: updated at bedside today care d/w Ofelia Bravo from CHF clinic cont PT, OT Admission and Anticipated Discharge Date Admission Date: March 18, 2022 Subjective pt sitting in chair no new complaints still with irritation and blood from nares - not copious, but still occurring coughing is ongoing minimal sputum production denied any dyspnea with walking to bathroom appetite still poor, but she states that chronically it isn't that great either tele stable overnight Review of Systems Review of Systems: gen - no fevers CV - no cp, no orthopnea pulm - no hemoptysis GI - no abd pain or nausea Physical Exam Physical Exam: gen - coughing, she looks very similar to my last visit 2 days ago neck - sitting upright still w/ JVD mouth - MMM heart - irregular, s1 s2, rate <100, 1-2/6 systolic murmur LLSB lungs - diffuse crackles anteriorly and posteriorly - no change from prior exam; scant end-exp wheeze with bronchial cough abd - soft NT ND BS+ ext - no edema b/l, pulses 2+ b/l psych - a/o x 3 Results & Data Results & Data ([facility]) Vital Signs (Past 12 Hours) Vital Signs Temp Pulse Pulse Resp BP Pulse Ox 03/22/22 11:44 36.6 C 82 16 136/79 95 03/22/22 10:57 74 18 95 03/22/22 07:48 88 18 96 03/22/22 07:09 83 03/22/22 06:59 36.5 C 80 18 117/67 92 03/22/22 03:42 36.4 C L 67 20 119/79 94 Laboratory Results Laboratory Results - last 24 hr 03/22/22 05:50 Sodium 140 Potassium 4.0 Chloride 100 Carbon Dioxide 34 H Anion Gap 6 BUN 38 H Creatinine 0.79 D Est Cr Clr Drug Dosing 55.4 Est GFR ( Amer) 78.6 Est GFR (Non-Af Amer) 67.8 BUN/Creatinine Ratio 48.1 H Glucose 93 Calcium 9.3 PG Care Time/CCT Total # of Minutes Spent Total Time Spent with Patient: Total time spent is greater than 50% in coordination of care (as documented) at patient's floor/unit and/or counseling patient: Coding Level of Care Code 97337 Subseq Hosp Care Lvl 2 Diagnoses Acute on chronic heart failure with preserved ejection fraction (HFpEF) I50.33 Acute respiratory failure with hypoxia J96.01 Bilateral pneumonia J18.9 Hypertension I10 Hypertension type: essential hypertension Hyperlipidemia E78.5 Hyperlipidemia type: unspecified Chronic kidney disease, stage 3a N18.31 Paroxysmal atrial fibrillation I48.0 Anticoagulant long-term use Z79.01 Abnormal chest xray R93.89 Epistaxis R04.0 (1) Hyperlipidemia Hyperlipidemia type: unspecified Qualified Code(s): E78.5 - Hyperlipidemia, unspecified (2) Hypertension Hypertension type: essential hypertension Qualified Code(s): I10 - Essential (primary) hypertension
[2022-03-22] MEDS: dexAMETHasone 6 MG in SYRINGE 0 ML IV SCH (13:35)
--- NOTE | 2022-03-22 14:59 | Heart Failure Progress Note ---
Date of Service March 22, 2022 Assessment & Plan (1) Acute on chronic heart failure with preserved ejection fraction (HFpEF): (2) Hypertension: (3) Atrial fibrillation: (4) Chronic kidney disease, stage 3a: (5) Mitral regurgitation: (6) Bifascicular bundle branch block: (7) Sinus bradycardia: (8) Status post placement of cardiac pacemaker: Plan: Acute HFpEF: Patient has been been having difficulty with fluid retention for several months. Initially suspected this may be tachycardia induced, however her rates have been well controlled since her last visit (to our knowledge). Also consider dietary indiscretion- patient currently denies. Small pleural effusions noted (previous thoracentesis). She has also noted increased lower extremity edema. BNP is elevated. She continues to require supplemental O2. She has been taking Lasix 80 mg am/40 mg pm at home. Patient confirms she has been adherent to this and has not skipped any doses. Lasix 80 mg IV BID for the past several days. She hasn't improved much clinically, remains hypervolemic on exam, still requiring supplemental O2. Kidney function stable. Continue diuretics. Continue Spironolactone 25 mg BID. Would recommend adding Zaroxolyn 2.5 mg 30 min before her pm Lasix dose today. Continue to monitor kidney function and electrolytes. She seems to be below her dry weight according to the chart? Daily STANDING weights. Get a standing weight in AM. Low sodium diet. Strict I&Os. If she is negative and not improving with more aggressive diuretics, consider pneumonia may be driving her symptoms. Dual-chamber pacemaker: Follows with Dr. De Paz. Device was interrogated last admission. Atrial fibrillation: She remains in atrial fibrillation which has been persistent and is possibly permanent. Rate is well controlled. Continue beta shara therapy and Diltiazem for rate control. Continue anticoagulation for stroke risk reduction. High blood pressure: Her blood pressure is well controlled. Optimize volume status as above. Mitral regurgitation: Mild. Continue to monitor. Dyspnea/cough: Likely multifactorial- treating for CHF and pneumonia. Disposition: *HF re-admission. Will continue to follow during hospitalization. Anticipate close outpatient follow up. Admission and Anticipated Discharge Date Admission Date: March 18, 2022 Subjective Patient sitting in the chair today visiting with her . She reports she feels about the same. She continues to have an intermittent cough. She was still on supplemental O2. She has been ambulating to the bathroom without much difficulty. Lower extremity edema is improving. I&Os inaccurate due to frequent unmeasured voids. Weight is stable at 196 lb, although this was a midday standing weight. She denies chest pain, palpitations. Physical Exam Physical Exam: Constitutional: Alert, oriented, in no acute distress. Supplemental O2 2L. HEENT: Head is atraumatic and normocephalic. EOMs intact. Sclera non-icteric. Neck: Supple, JVD noted snf to the mandible at 30 degrees. + HJR. Pulmonary: Normal respiratory effort, course crackles throughout, frequent cough. Cardiac: Irregularly irregular, normal S1 and S2, no gallops, no rubs, no murmurs Extremities: 2+ lower extremity edema bilaterally. No clubbing or cyanosis. Pulses intact Abdomen: Normal bowel sounds, soft, non-tender, no abdominal masses palpated Skin: Normal skin color, turgor, and pigmentation. No rash or skin lesions Neurological: Oriented to person, place, and time Results & Data ([facility]) Vital Signs (Past 12 Hours) Vital Signs Temp Pulse Pulse Resp BP Pulse Ox 03/22/22 13:08 66 20 90 03/22/22 11:44 97.9 F 82 16 136/79 95 03/22/22 10:57 74 18 95 03/22/22 07:48 88 18 96 03/22/22 07:09 83 03/22/22 06:59 97.7 F 80 18 117/67 92 03/22/22 03:42 97.5 F L 67 20 119/79 94 PG Care Time/CCT Total # of Minutes Spent Total Time Spent with Patient: Total time spent is greater than 50% in coordination of care (as documented) at patient's floor/unit and/or counseling patient: Coding Level of Care Code 97043 Subseq Hosp Care Lvl 3 Diagnoses Acute on chronic heart failure with preserved ejection fraction (HFpEF) I50.33 Hypertension I10 Hypertension type: essential hypertension Atrial fibrillation I48.91 Chronic kidney disease, stage 3a N18.31 Mitral regurgitation I34.0 Bifascicular bundle branch block I45.2 Sinus bradycardia R00.1 Status post placement of cardiac pacemaker Z95.0 (1) Hypertension Hypertension type: essential hypertension Qualified Code(s): I10 - Essential (primary) hypertension
[2022-03-22] MEDS ORDERED: metOLazone 2.5 MG TABLET PO ONE (16:30)
[2022-03-23] MEDS: ALBUTEROL HFA 8 GM INHALER INH SCH (07:05)
[2022-03-23] MEDS: IPRATROPIUM BROMIDE HFA INHALER INH SCH (07:06)
[2022-03-23] MEDS: MUPIROCIN 2% OINT 22 GM TUBE EXT SCH ×2 (08:27→21:34)
[2022-03-23] MEDS: BENZONATATE 100 MG CAPSULE PO SCH ×3 (08:31→21:34)
[2022-03-23] MEDS: guaiFENesin 600 MG TABCR PO SCH ×2 (08:31→21:33)
[2022-03-23] MEDS: METOPROLOL TARTRATE 100 MG TAB PO SCH ×2 (08:31→21:41)
[2022-03-23] MEDS: APIXABAN 5 MG TABLET PO SCH ×2 (08:31→21:33)
[2022-03-23] MEDS: SPIRONOLACTONE 25 MG TAB PO SCH ×2 (08:31→17:59)
[2022-03-23] MEDS: ATORVASTATIN 10 MG TAB PO SCH (08:32)
[2022-03-23] MEDS: FUROSEMIDE 40 MG/4 ML VIAL IV SCH ×2 (08:32→17:59)
[2022-03-23] MEDS: dilTIAZem HCL 180 MG CAPCR PO SCH (08:32)
[2022-03-23] MEDS: CYANOCOBALAMIN (B-12) 500 MCG TABLET PO SCH (08:32)
[2022-03-23] MEDS: allopurinoL 100 MG TAB PO SCH (08:32)
[2022-03-23] MEDS: cefTRIAXone SODIUM 2,000 MG in DEXTROSE 5% 50 ML IV SCH (08:34)
[2022-03-23 08:46] LABS: BUN Creatinine Ratio 39.2 (10-20); C Reactive Protein 1.66 mg/dl (0-0.5); Calcium 9.8 mg/dl (8.5-10.1); Creatinine Clr Calc Pharmacy 42.5 ml/min; Est GFR (African American) 57.7 ml/min; Est GFR (Non-African American) 49.8 ml/min; Magnesium 2.1 mg/dl (1.7-2.4)
[2022-03-23] MEDS: ALBUT/IPRATROP 3MG/0.5MG NEB 3 ML VIAL NEB SCH ×3 (11:21→19:07)
[2022-03-23] MEDS: dexAMETHasone 6 MG in SYRINGE 0 ML IV SCH (12:21)
[2022-03-23] MEDS ORDERED: metOLazone 2.5 MG TABLET PO SCH (16:30)
--- NOTE | 2022-03-23 20:27 | Hospitalist Progress Note ---
Date of Service March 23, 2022 Assessment & Plan (1) Acute respiratory failure with hypoxia: Plan: Improved/resolving. Off supplemental NC O2 today. Suspect combination of decompensated CHF + infectious etiology (bronchitis and/or pneumonia). Uncertain which etiology played the larger role. Cont diuresis. Cont abx. Cont pulm toilet - incentive spirometry, flutter valve, pneumo vest, Mucinex 1200 twice daily, bronchodilators, IV dexamethsaone. (2) Acute on chronic heart failure with preserved ejection fraction (HFpEF): Plan: IMPROVED volume status today. Weight improved. Cont lasix 80mg IV BID. Repeat zaroxylyn 2.5mg 30 min prior to evening dose of lasix again. Cont aldactone bid. Cont metoprolol. Most recent echo on 02/12/2022 with EF 55-60% Hold lasix after tonight's dose while awaiting repeat labs tomorrow am. (3) Bilateral pneumonia: Plan: probable. improved. sputum production, lack of appetite, cxr findings, and being sick fit with infectious process. cont rocephin (Day #5) today, then over to PO cefdinir tomorrow x 2 more days, then stop all abx therapy. Did receive zithromax earlier in stay. (4) Hypertension: Plan: Controlled Cont home meds (5) Hyperlipidemia: Plan: Continue atorvastatin 10 mg daily (6) Chronic kidney disease, stage 3a: Plan: Creatinine 1.32 upon admission Creatinine is 1 today and stable Follow BMP daily (7) Paroxysmal atrial fibrillation: Plan: Has been in a.fib since admission with good rate control Likely has permanent a.fib Cont BB Cont apixaban BID Cont diltiazem daily (8) Anticoagulant long-term use: Plan: Continue apixaban (9) Abnormal chest xray: Plan: both she and her became ill about the same time 7-10 days ago. suspect community-acquired pneumonia. Continue antibiotics as above defer on CT chest since she made nice improvement overnight (10) Epistaxis: Plan: bactroban ointment BID to both nares nasal saline spray q1h prn. improved. Plan: updated at bedside again today care d/w Ofelia Bravo from CHF clinic this week cont PT, OT - [facility] discharge next 1-2 days Admission and Anticipated Discharge Date Admission Date: March 18, 2022 Subjective feels better o2 weaned off eating a bit better cough improved epistaxis resolved ambulating moving bowels tele overnight with pacing/controlled a.fib Review of Systems Review of Systems: gen - no fever cv - no orthopnea or PND or edema pulm - cough/congestion much improved GI - no nausea or pain Physical Exam Physical Exam: gen - looks better today, less cough nose - old blood clot L nare; no active bleeding either nare neck - sitting upright still w/ JVD but improved mouth - MMM heart - irregular, s1 s2, rate <100, 1-2/6 systolic murmur LLSB lungs - crackles b/l improved today; airation better; no wheeze abd - soft NT ND BS+ ext - no edema b/l, pulses 2+ b/l psych - a/o x 3 Results & Data Results & Data ([facility]) Vital Signs (Past 12 Hours) Vital Signs Temp Pulse Pulse Resp BP Pulse Ox 03/23/22 19:49 36.3 C L 93 H 18 120/72 90 03/23/22 19:07 18 89 L 03/23/22 15:32 36.3 C L 68 19 113/71 93 03/23/22 15:12 74 17 95 03/23/22 14:20 70 03/23/22 11:33 36.9 C 70 19 112/63 91 03/23/22 11:21 73 17 94 Laboratory Results Laboratory Results - last 24 hr 03/23/22 07:24 Sodium 139 Potassium 4.0 Chloride 98 Carbon Dioxide 33 H Anion Gap 8 BUN 40 H Creatinine 1.02 Est Cr Clr Drug Dosing 42.5 Est GFR ( Amer) 57.7 Est GFR (Non-Af Amer) 49.8 BUN/Creatinine Ratio 39.2 H Glucose 131 H Calcium 9.8 Magnesium 2.1 C-Reactive Protein 1.66 H PG Care Time/CCT Total # of Minutes Spent Total Time Spent with Patient: Total time spent is greater than 50% in coordination of care (as documented) at patient's floor/unit and/or counseling patient: Coding Level of Care Code 79827 Subseq Hosp Care Lvl 2 Diagnoses Acute respiratory failure with hypoxia J96.01 Acute on chronic heart failure with preserved ejection fraction (HFpEF) I50.33 Bilateral pneumonia J18.9 Hypertension I10 Hypertension type: essential hypertension Hyperlipidemia E78.5 Hyperlipidemia type: unspecified Chronic kidney disease, stage 3a N18.31 Paroxysmal atrial fibrillation I48.0 Anticoagulant long-term use Z79.01 Abnormal chest xray R93.89 Epistaxis R04.0 (1) Hyperlipidemia Hyperlipidemia type: unspecified Qualified Code(s): E78.5 - Hyperlipidemia, unspecified (2) Hypertension Hypertension type: essential hypertension Qualified Code(s): I10 - Essential (primary) hypertension
[2022-03-24] MEDS: ALBUT/IPRATROP 3MG/0.5MG NEB 3 ML VIAL NEB SCH ×4 (07:13→19:03)
[2022-03-24 07:30] LABS: Hemoglobin 11.4 g/dL (12.0-16.0); Mean Corpuscular Hemoglobin 29.3 pg (25-34); Mean Corpuscular Hgb Conc 31.7 g/dL (32-36); Mean Corpuscular Volume 92.5 fL (80-100); Platelet Count 292 K/uL (130-400); RDW Coefficient of Variation 14.3 % (11.5-14.5); RDW Standard Deviation 48.2 fL (36.4-46.3); Red Blood Count 3.89 M/uL (4.2-5.4); White Blood Count 13.99 K/uL (4.8-10.8)
[2022-03-24 08:07] LABS: BUN Creatinine Ratio 46.3 (10-20); Calcium 10.1 mg/dl (8.5-10.1); Creatinine Clr Calc Pharmacy 35.2 ml/min; Est GFR (Non-African American) 39.7 ml/min; Potassium 4.5 mmol/L (3.5-5.1)
--- NOTE | 2022-03-24 09:16 | XRay Report ---
TWO VIEW CHEST CLINICAL HISTORY: Dyspnea FINDINGS: PA and lateral chest radiographs are compared to study dated 03/20/2022 and correlated with chest CT dated 08/14/2021. A 2-lead cardiac pacemaker is unchanged in position. The heart is enlarged noting atherosclerotic calcification of the thoracic aorta. The pulmonary vasculature is noncongested . Chronic interstitial thickening is similar to previous. There are small pleural effusions with depe ndent consolidation. No pneumothorax is seen. The skeletal structures are osteopenic. The bony thorax is grossly intact. Degenerative change is seen throughout the thoracic spine. Cholecystectomy clips are noted in the right upper quadrant. IMPRESSION: 1. Cardiomegaly and cardiac pacemaker with no radiographic evidence of congestive failure. 2. There are small pleural effusions with dependent consolidation. This likely represents atelectasis and clinical correlation will be required. ACT 112: Negative or not required by law. Electronically signed by: Tommy Martinez M.D. 03/24/2022 9:14 AM
[2022-03-24] MEDS: CYANOCOBALAMIN (B-12) 500 MCG TABLET PO SCH (09:27)
[2022-03-24] MEDS: CEFDINIR 300 MG CAP PO SCH ×2 (09:27→20:28)
[2022-03-24] MEDS: APIXABAN 5 MG TABLET PO SCH ×2 (09:28→20:26)
[2022-03-24] MEDS: allopurinoL 100 MG TAB PO SCH (09:28)
[2022-03-24] MEDS: dilTIAZem HCL 180 MG CAPCR PO SCH (09:28)
[2022-03-24] MEDS: SPIRONOLACTONE 25 MG TAB PO SCH (09:28)
[2022-03-24] MEDS: ATORVASTATIN 10 MG TAB PO SCH (09:28)
[2022-03-24] MEDS: METOPROLOL TARTRATE 100 MG TAB PO SCH ×2 (09:29→20:26)
[2022-03-24] MEDS: BENZONATATE 100 MG CAPSULE PO SCH ×3 (09:29→20:25)
[2022-03-24] MEDS: MUPIROCIN 2% OINT 22 GM TUBE EXT SCH ×2 (09:29→20:28)
[2022-03-24] MEDS: guaiFENesin 600 MG TABCR PO SCH ×2 (09:29→20:27)
[2022-03-24] MEDS: dexAMETHasone 6 MG in SYRINGE 0 ML IV SCH (13:19)
[2022-03-24] MEDS ORDERED: FUROSEMIDE 80 MG TAB PO ONE (13:29)
--- NOTE | 2022-03-24 13:30 | Hospitalist Progress Note ---
Date of Service March 24, 2022 Assessment & Plan (1) Acute respiratory failure with hypoxia: Plan: Resolved - Off supplemental NC O2 today at rest but does desats w/ activity. Suspect combination of decompensated CHF + infectious etiology (bronchitis and/or pneumonia). Uncertain which etiology played the larger role. BUN and Cr are rising - suspect we are at euvolemia or slightly on dry side -- but does have peripheral edema still. Cont abx. Cont pulm toilet - incentive spirometry, flutter valve, pneumo vest, Mucinex 1200 twice daily, bronchodilators, IV dexamethsaone (1 more day or so then PO prednisone). If a 2-step tomorrow shows need for home O2 will obtain chest CT noncon - r/o ILD, etc. (2) Acute on chronic heart failure with preserved ejection fraction (HFpEF): Plan: improved/resolved. stop IV lasix. will give lasix 80mg x 1 (PO) and reassess tomorrow. Hold aldactone tonight. NO futher thiazide. Cont metoprolol. Repeat BMP am. Most recent echo on 02/12/2022 with EF 55-60% Lasix dosing at home - 80mg BID? d/w cards tomorrow (3) Bilateral pneumonia: Plan: probable. improved/resolved sputum production, lack of appetite, cxr findings, and being sick fit with infectious process. s/p 5 days of rocephin now on day 1 of 2 of cefdinir if 2-step shows need for home O2 plan for noncon CT chest - r/o ILD, other pathology (4) Hypertension: Plan: Controlled Cont home meds (5) Hyperlipidemia: Plan: Continue atorvastatin 10 mg daily (6) Chronic kidney disease, stage 3a: Plan: Creatinine 1.32 upon admission Creatinine is 1.2 today Follow BMP daily suspect we are euvolemic or slightly dry (7) Paroxysmal atrial fibrillation: Plan: Has been in a.fib since admission with good rate control Likely has permanent a.fib Cont BB Cont apixaban BID Cont diltiazem daily (8) Anticoagulant long-term use: Plan: Continue apixaban (9) Abnormal chest xray: Plan: both she and her became ill about the same time 7-10 days ago. suspect community-acquired pneumonia. Continue antibiotics as above (10) Epistaxis: Plan: bactroban ointment BID to both nares nasal saline spray q1h prn. resolved Plan: updated by phone this evening will discuss care with Ofelia Lawrence from CHF clinic tomorrow cont PT, OT - cleared for home d/c tomorrow?? Admission and Anticipated Discharge Date Admission Date: March 18, 2022 Subjective no events overnight tele - a.fib or pacing feels good cough improved although not resolved no dyspnea at rest no orthopnea very mild RICHARD at [facility] exercise had nursing check her sats w/ walking - low 80s in RA Review of Systems Review of Systems: gen - no fevers/chills; eating is improved cv - no cp pulm - no sputum at this point GI - moving bowels hent - congestion of nose Physical Exam Physical Exam: gen - looks great during the exam today; scant cough mouth - MMM heart - irregular, s1 s2, rate <100, 1-2/6 systolic murmur LLSB lungs - crackles b/l again improved today - mild at best; no wheeze; good airation abd - soft NT ND BS+ ext - trace-1+ edema b/l, pulses 2+ b/l psych - a/o x 3 Results & Data Results & Data ([facility]) Vital Signs (Past 12 Hours) Vital Signs Temp Pulse Pulse Resp BP BP Pulse Ox 03/24/22 11:10 36.4 C L 93 H 18 132/72 92 03/24/22 10:58 94 H 17 93 03/24/22 07:58 36.4 C L 108 H 18 131/83 90 03/24/22 07:53 94 H 03/24/22 07:13 18 91 03/24/22 03:53 36.4 C L 89 16 124/74 91 Laboratory Results Laboratory Results - last 24 hr 03/24/22 03/24/22 07:06 07:06 WBC 13.99 H RBC 3.89 L Hgb 11.4 L Hct 36.0 L MCV 92.5 MCH 29.3 MCHC 31.7 L RDW Std Deviation 48.2 H RDW Coeff of Toney 14.3 Plt Count 292 MPV 11.0 H Sodium 139 Potassium 4.5 Chloride 97 L Carbon Dioxide 34 H Anion Gap 8 BUN 57 H Creatinine 1.23 H Est Cr Clr Drug Dosing 35.2 Est GFR ( Amer) 46.0 Est GFR (Non-Af Amer) 39.7 BUN/Creatinine Ratio 46.3 H Glucose 143 H Calcium 10.1 PG Care Time/CCT Total # of Minutes Spent Total Time Spent with Patient: Total time spent is greater than 50% in coordination of care (as documented) at patient's floor/unit and/or counseling patient: Coding Level of Care Code 29345 Subseq Hosp Care Lvl 2 Diagnoses Acute respiratory failure with hypoxia J96.01 Acute on chronic heart failure with preserved ejection fraction (HFpEF) I50.33 Bilateral pneumonia J18.9 Hypertension I10 Hypertension type: essential hypertension Hyperlipidemia E78.5 Hyperlipidemia type: unspecified Chronic kidney disease, stage 3a N18.31 Paroxysmal atrial fibrillation I48.0 Anticoagulant long-term use Z79.01 Abnormal chest xray R93.89 Epistaxis R04.0 (1) Hyperlipidemia Hyperlipidemia type: unspecified Qualified Code(s): E78.5 - Hyperlipidemia, unspecified (2) Hypertension Hypertension type: essential hypertension Qualified Code(s): I10 - Essential (primary) hypertension
[2022-03-25] MEDS: ALBUT/IPRATROP 3MG/0.5MG NEB 3 ML VIAL NEB SCH ×3 (07:19→15:12)
[2022-03-25 07:22] LABS: BUN Creatinine Ratio 53.2 (10-20); Calcium 9.6 mg/dl (8.5-10.1); Creatinine Clr Calc Pharmacy 34.9 ml/min; Est GFR (African American) 45.5 ml/min; Est GFR (Non-African American) 39.3 ml/min; Potassium 4.5 mmol/L (3.5-5.1)
[2022-03-25] MEDS: ATORVASTATIN 10 MG TAB PO SCH (08:03)
[2022-03-25] MEDS: CYANOCOBALAMIN (B-12) 500 MCG TABLET PO SCH (08:03)
[2022-03-25] MEDS: APIXABAN 5 MG TABLET PO SCH (08:04)
[2022-03-25] MEDS: BENZONATATE 100 MG CAPSULE PO SCH ×2 (08:04→13:29)
[2022-03-25] MEDS: guaiFENesin 600 MG TABCR PO SCH (08:04)
[2022-03-25] MEDS: dilTIAZem HCL 180 MG CAPCR PO SCH (08:04)
[2022-03-25] MEDS: CEFDINIR 300 MG CAP PO SCH (08:04)
[2022-03-25] MEDS: allopurinoL 100 MG TAB PO SCH (08:04)
[2022-03-25] MEDS: METOPROLOL TARTRATE 100 MG TAB PO SCH (08:04)
[2022-03-25] MEDS: MUPIROCIN 2% OINT 22 GM TUBE EXT SCH (08:05)
[2022-03-25] MEDS: dexAMETHasone 6 MG in SYRINGE 0 ML IV SCH (13:29)
--- NOTE | 2022-03-25 13:46 | CT Scan Report ---
CT SCAN OF THE CHEST WITHOUT IV CONTRAST CLINICAL HISTORY: Abnormal physical examination. Bibasilar Rales. COMPARISON STUDY: Chest radiograph dated 03/24/2022. Chest CT scans dated 08/14/2021 and 08/20/2016. TECHNIQUE: CT scan of the thorax was performed from the thoracic inlet to the upper abdomen. Images are reviewed in the axial, sagittal, and coronal planes. IV contrast was not administered for this ex amination as per the referring clinician. A dose lowering technique was utilized [facility] DOSE: 331.38 mGy.cm FINDINGS: Thyroid: Mildly enlarged and heterogeneous. Thoracic aorta: There is atherosclerotic calcification of the thoracic aorta, which is normal in nelly linda and demonstrates bovine variant arch anatomy. Heart: A 2-lead cardiac pacemaker is present in the left chest wall. The heart is enlarged and withou t pericardial effusion. The coronary arteries are densely calcified. There is diminished attenuation of the cardiac blood as compared to the myocardium suggesting anemia. Lungs and pleural spaces: Mild emphysema is noted. There are small right and trace left pleural effus ions with dependent scarring/atelectasis. No airspace consolidation is seen typical for pneumonia. Th e trachea and central airways are clear. There are scattered calcified granulomas. A 7 mm ground glas s nodule in the left upper lobe seen on image #65 is unchanged. Mediastinum: There is no mediastinal lymphadenopathy. Jodi: Not well assessed without IV contrast. Axillae: There is no axillary lymphadenopathy. Upper abdomen: Partially visualized upper abdominal viscera is within normal limits. Skeletal structures: The skeletal structures are osteopenic. Degenerative change and hyperkyphosis is noted in the thoracic spine with evidence of DISH. A large hemangioma is noted in the body of T12. N o lytic or blastic bony lesions are seen. Arthritic change is noted in the shoulders. IMPRESSION: 1. Cardiomegaly and cardiac pacemaker. 2. There are small right and trace left pleural effusions with bibasilar scarring/atelectasis. 3. There is no airspace consolidation typical for pneumonia. 4. A 7 mm left upper lobe groundglass nodule is unchanged as compared to prior examinations. 5. Additional findings as above. ACT 112: Negative or not required by law. Electronically signed by: Tommy Martinez M.D. 03/25/2022 1:44 PM
--- NOTE | 2022-03-25 15:00 | Heart Failure Progress Note ---
Date of Service March 25, 2022 Assessment & Plan (1) Acute on chronic heart failure with preserved ejection fraction (HFpEF): (2) Hypertension: (3) Chronic kidney disease, stage 3a: (4) Status post placement of cardiac pacemaker: (5) Paroxysmal atrial fibrillation: Plan: Acute HFpEF: Patient has been been having difficulty with fluid retention for several months. Initially suspected this may be tachycardia induced, however her rates have been well controlled since her last visit (to our knowledge). Also consider dietary indiscretion- patient currently denies. Small pleural effusions noted (previous thoracentesis). She is feeling improved. BUN/cr slightly incr eased the past 2 days suggesting euvolemia. She has been taking Lasix 80 mg am/40 mg pm at home. Recommend Lasix 80 mg BID on discharge. Continue Spironolactone 25 mg BID. Continue to monitor kidney function and electrolytes. She seems to be below her dry weight according to the chart? Daily STANDING weights. Low sodium diet. Strict I&Os. If she is negative and not improving with more aggressive diuretics, consider pneumonia may be driving her symptoms. Dual-chamber pacemaker: Follows with Dr. De Paz. Device was interrogated last admission. Atrial fibrillation: She remains in atrial fibrillation which has been persistent and is possibly permanent. Rate is well controlled. Continue beta shara therapy and Diltiazem for rate control. Rate does increase with minimal activity. Discussed with Dr. De Paz, telemetry reviewed, no changes recommended at this time as long as she is asymptomatic. Continue anticoagulation for stroke risk reduction. High blood pressure: Her blood pressure is well controlled. Optimize volume status as above. Mitral regurgitation: Mild. Continue to monitor. Dyspnea/cough: Likely multifactorial- treating for CHF and pneumonia. Disposition: *HF re-admission. Follow up 04/01/22 at 1030. Admission and Anticipated Discharge Date Admission Date: March 18, 2022 Subjective Patient sitting in the chair today visiting with her . She reports she feels improved. She is tolerating room air. She was able to ambulate in the hallway today. Lower extremity edema is improving but still notable. I&Os inaccurate due to frequent unmeasured voids. Weight is down to 192 lb. She denies chest pain, palpitations. CT with small right and trace left pleural effusions. No evidence of pneumonia. Physical Exam Physical Exam: Constitutional: Alert, oriented, in no acute distress.Room air. HEENT: Head is atraumatic and normocephalic. EOMs intact. Sclera non-icteric. Neck: Supple, JVD noted usp to the mandible at 30 degrees. + HJR. Pulmonary: Normal respiratory effort, course crackles throughout. Cardiac: Irregularly irregular, normal S1 and S2, no gallops, no rubs, no murmurs Extremities: 2+ lower extremity edema bilaterally. No clubbing or cyanosis. Pulses intact Abdomen: Normal bowel sounds, soft, non-tender, no abdominal masses palpated Skin: Normal skin color, turgor, and pigmentation. No rash or skin lesions Neurological: Oriented to person, place, and time Results & Data ([facility]) Vital Signs (Past 12 Hours) Vital Signs Temp Pulse Pulse Pulse Pulse Resp Resp 03/25/22 11:55 97.5 F L 106 H 16 03/25/22 09:50 113 H 110 H 97 H 20 03/25/22 07:48 97.9 F 86 16 03/25/22 07:20 114 H 18 03/25/22 03:51 97.7 F 71 18 Resp Resp BP Pulse Ox Pulse Ox Pulse Ox Pulse Ox 03/25/22 11:55 134/75 94 03/25/22 09:50 18 16 89 L 91 96 03/25/22 07:48 133/72 92 03/25/22 07:20 93 03/25/22 03:51 101/54 L 92 PG Care Time/CCT Total # of Minutes Spent Total Time Spent with Patient: Total time spent is greater than 50% in coordination of care (as documented) at patient's floor/unit and/or counseling patient: Coding Level of Care Code 31024 Subseq Hosp Care Lvl 3 Diagnoses Acute on chronic heart failure with preserved ejection fraction (HFpEF) I50.33 Hypertension I10 Hypertension type: essential hypertension Chronic kidney disease, stage 3a N18.31 Status post placement of cardiac pacemaker Z95.0 Paroxysmal atrial fibrillation I48.0 (1) Hypertension Hypertension type: essential hypertension Qualified Code(s): I10 - Essential (primary) hypertension
--- NOTE | 2022-03-25 15:24 | Discharge Summary ---
Date of Service date of admission - March 18, 2022 date of discharge - March 25, 2022 Admission HPI Per Admitting Provider The patient is an 87-year-old female with a past medical history including HFpEF, hypertension, hyperlipidemia, CKD stage IIIb, idiopathic pulmonary cysts, pulmonary nodule, sick sinus syndrome status post AICD, paroxysmal atrial fibrillation, bifascicular bundle branch block and anemia. She was most recently admitted to [facility] from 02/11-02/16/2022 with a CHF exacerbation. She presents with worsening shortness of breath, dry cough, and orthopnea along with LE edema. She notes everything started Friday. is sick with a respiratory illness as well. This presentation is different than her January hospitalization in that she has a productive cough, which she did not have during the previous hospitalization. Principal Diagnosis 1. acute hypoxic respiratory failure 2nd to #2, #3 2. acute/chronic diastolic CHF 3. acute bronchitis Discharge Exam gen - NAD, scant dry cough, looks much better in comparison to previous examinations mouth - MMM nose - old, dried blood in nares but no acute bleeding neck - no JVD heart - irregular, s1 s2, rate <100, 1-2/6 systolic murmur LLSB lungs - scant rales bases; no wheeze; good airation; no increased work of breathing abd - soft NT ND BS+ ext - trace-1+ edema b/l, pulses 2+ b/l psych - a/o x 3 Discharge Data Allergies Allergy/AdvReac Type Severity Reaction Status Date / Time No Known Allergies Allergy Verified 03/18/22 21:04 Consultations CHF Program - Ofelia TORRES PT, OT Procedures Performed 2-step ambulatory oxygen test - no need for home O2; lowest O2 sats with walking (briefly) 89% Ordered Studies Chest X-Ray 03/18/22 17:42 SINGLE VIEW CHEST CLINICAL HISTORY: Dyspnea. FINDINGS: An AP, portable, upright chest radiograph is compared to study dated 02/11/2022 and correlated with chest CT dated 08/14/2021. A 2-lead cardiac pacemaker is unchanged in position. The heart is enlarged noting atherosclerotic calcification of the thoracic aorta. There is prominence of the pulmonary vasculature. Chronic interstitial thickening is similar to previous. Small pleural effusions are suspected with dependent opacities. No pneumothorax is seen. The skeletal structures are osteopenic. The bony thorax is grossly intact. Calcific tendinopathy is noted in both shoulders. Degenerative change is seen throughout the thoracic spine. IMPRESSION: 1. Cardiomegaly and AICD with prominence of the pulmonary vasculature. Correlate clinically for evidence of mild congestive failure. 2. Suspect small pleural effusions. 3. Dependent opacities likely represent atelectasis. Clinical correlation will be required. ACT 112: Negative or not required by law. Electronically signed by: Tommy Martinez M.D. 03/18/2022 6:52 PM Chest X-Ray 03/20/22 08:43 XR chest 2V PA/lateral CLINICAL HISTORY: CHF vs pneumonia, interval change TECHNIQUE: 2 views of the chest were obtained. Comparison: Comparison is made to chest radiograph 03/18/2022 FINDINGS: Dual lead pacemaker is seen. Cardiomegaly is noted. Bibasilar airspace opacities are seen. Bilateral small pleural effusions are seen. IMPRESSION: Small bilateral pleural effusions, increased from prior exam. Bibasilar airspace opacities are favored to represent atelectasis with or without superimposed pneumonia. Stable cardiomegaly. ACT 112: Negative or not required by law. Electronically signed by: Bryce Delatorre M.D. 03/20/2022 9:35 AM Chest X-Ray 03/24/22 08:12 TWO VIEW CHEST CLINICAL HISTORY: Dyspnea FINDINGS: PA and lateral chest radiographs are compared to study dated 03/20/2022 and correlated with chest CT dated 08/14/2021. A 2-lead cardiac pacemaker is unchanged in position. The heart is enlarged noting atherosclerotic calcification of the thoracic aorta. The pulmonary vasculature is noncongested. Chronic interstitial thickening is similar to previous. There are small pleural effusions with dependent consolidation. No pneumothorax is seen. The skeletal structures are osteopenic. The bony thorax is grossly intact. Degenerative change is seen throughout the thoracic spine. Cholecystectomy clips are noted in the right upper quadrant. IMPRESSION: 1. Cardiomegaly and cardiac pacemaker with no radiographic evidence of congestive failure. 2. There are small pleural effusions with dependent consolidation. This likely represents atelectasis and clinical correlation will be required. ACT 112: Negative or not required by law. Electronically signed by: Tommy Martinez M.D. 03/24/2022 9:[address] 03/25/22 10:40 CT SCAN OF THE CHEST WITHOUT IV CONTRAST CLINICAL HISTORY: Abnormal physical examination. Bibasilar Rales. COMPARISON STUDY: Chest radiograph dated 03/24/2022. Chest CT scans dated 08/14/2021 and 08/20/2016. TECHNIQUE: CT scan of the thorax was performed from the thoracic inlet to the upper abdomen. Images are reviewed in the axial, sagittal, and coronal planes. IV contrast was not administered for this examination as per the referring clinician. A dose lowering technique was utilized adhering to the principles of ALARA. CT DOSE: 331.38 mGy.cm FINDINGS: Thyroid: Mildly enlarged and heterogeneous. Thoracic aorta: There is atherosclerotic calcification of the thoracic aorta, which is normal in caliber and demonstrates bovine variant arch anatomy. Heart: A 2-lead cardiac pacemaker is present in the left chest wall. The heart is enlarged and without pericardial effusion. The coronary arteries are densely calcified. There is diminished attenuation of the cardiac blood as compared to the myocardium suggesting anemia. Lungs and pleural spaces: Mild emphysema is noted. There are small right and trace left pleural effusions with dependent scarring/atelectasis. No airspace consolidation is seen typical for pneumonia. The trachea and central airways are clear. There are scattered calcified granulomas. A 7 mm ground glass nodule in the left upper lobe seen on image #65 is unchanged. Mediastinum: There is no mediastinal lymphadenopathy. Jodi: Not well assessed without IV contrast. Axillae: There is no axillary lymphadenopathy. Upper abdomen: Partially visualized upper abdominal viscera is within normal limits. Skeletal structures: The skeletal structures are osteopenic. Degenerative change and hyperkyphosis is noted in the thoracic spine with evidence of DISH. A large hemangioma is noted in the body of T12. No lytic or blastic bony lesions are seen. Arthritic change is noted in the shoulders. IMPRESSION: 1. Cardiomegaly and cardiac pacemaker. 2. There are small right and trace left pleural effusions with bibasilar scarring/atelectasis. 3. There is no airspace consolidation typical for pneumonia. 4. A 7 mm left upper lobe groundglass nodule is unchanged as compared to prior examinations. 5. Additional findings as above. ACT 112: Negative or not required by law. Electronically signed by: Tommy Martinez M.D. 03/25/2022 1:44 PM Hospital Course (1) Acute respiratory failure with hypoxia: Suspect combination of decompensated CHF + infectious etiology (bronchitis). Resolved - off supplemental NC O2 by time of discharge. 2-step ambulatory oxygen test on day of discharge did not show need for home O2. On day of discharge a CT chest was obtained which revealed no evidence of pneumonia and resolution of pulmonary edema (small b/l pleural effusions only). (2) Acute on chronic heart failure with preserved ejection fraction (HFpEF): Acute CHF resolved with aggressive IV diuresis including use of prn thiazide diuretic. She also received spironolactone. She was maintained on her metoprolol. Discharge weight was 87.5kg (192.5 pounds). Most recent echo was on 02/12/2022 with EF 55-60% and severe pulmonary HTN. MELISSA Herndon, from the [facility]F [facility] provided judd recommendations for her cardiac care. At discharge the following were advised - * INCREASE lasix to 80mg BID * continue spironolactone 25mg daily * continue metoprolol tartrate 100mg BID She will follow-up with Ms Bravo in the CHF clinic within a week of discharge and will have repeat BMP to ensure stability of creatinine, potassium, etc. Exact cause of her decompensated CHF was uncertain but perhaps due to the physical stress of her illness. (3) Acute bronchitis: Initially it was thought that she had b/l basilar pneumonia. Sputum production, lack of appetite, cxr findings, and being sick fit with an infectious process. She received 5 days of IV rocephin followed by oral cefdinir. She also received several days of IV dexamethasone. On day of discharge a noncontrast chest CT was obtained due to borderline low O2 sats on her 2-step ambulatory test. This did NOT show pneumonia as previously suspected. Thus, it was likely that she had acute bronchitis. She will finish a short course of oral dexamethasone, take tessalon prn cough, and take combivent inhaler prn cough/congestion/wheeze. (4) Bilateral pneumonia: Suspected at time of admission, but later ruled out. See #3 above. (5) Hypertension: Controlled throughout the visit. Continue metoprolol, diltiazem, lasix, spironolactone. (6) Hyperlipidemia: Continue atorvastatin 10 mg daily. (7) Chronic kidney disease, stage 3a: Creatinine 1.32 upon admission Creatinine 1.2 upon discharge In light of adjustments to her diuretic regimen she will need a repeat BMP within a week of discharge (8) Paroxysmal atrial fibrillation: She was observed to be in constant a.fib her entire stay. Rate control was relatively acceptable. She likely has permanent a.fib as opposed to paroxysmal. Cont metoprolol tartrate BID. Cont apixaban BID. Cont diltiazem daily. (9) Anticoagulant long-term use: Continue apixaban as previous. (10) Abnormal chest xray: Both she and her became ill about the same time several days prior to admission. Initially it was suspected that she had community-acquired pneumonia. CT chest later in her stay did not show such. She likely had acute bronchitis - see above. (11) Epistaxis: bactroban ointment BID to both nares nasal saline spray q1h prn. resolved (12) Lung nodule: left upper lobe - 7mm. seen on CT imaging going back several years. stable in size. will refer to [facility] Pulmonary Nodule program to be complete. seen by PT, OT - cleared for home with her Total Time Total Time Spent Total Time Spent (In Minutes): 45 Discharge Plan Discharge Items Patient Disposition: Home - Self-Care Reason For Visit: Congestive Heart Failure Discharge Diagnosis: 1. Congestive Heart Failure - fluid build-up in the lungs with resulting difficulty breathing 2. Probable bronchitis 3. Atrial fibrillation Activity: Resume your previous activity Activity Comment: as tolerated Non-emergency contact: Primary Care Provider and Seismograph Operator Call non-emergency contact if: you have any medication questions, your symptoms worsen and you have a fever Follow-up/Referrals: Lian Baker PA-C [Primary Care Provider] - 04/01/22 1:30 pm (1 week MARCH 9 @1330) Alejandrina Bravo PA-C [Physician Associate Medical Director] - 04/01/22 10:30 am (Congestive Heart Failure Program Appointment Information Early follow up is essential to managing your heart failure. An appointment has been scheduled for you with the [facility] Heart Failure Program within 7 days of discharge. Anticipate this visit to be 30-60 minutes long. Please expect a author agent phone call from one of our nurses approximately 48 hours from discharge. They will also be placing an order for lab work to be completed 1-2 days prior to your heart failure follow up appointment. Please be sure to have this done so we can go over the results when you come in. Office Location The cardiology office building is located in front of the hospital at [address] Bring the following with you to your follow-up doctor appointments: Please bring your daily weight log any discharge paperwork all of your medication bottles with you to this visit. ) Diet: Heart Healthy Fluids: 1500ml (6 cups) Addtl Attending Provider Instructions: Mrs Cali Huerta were treated for congestive heart failure and suspected bronchitis. Both of these conditions caused you to be short of breath. You required oxygen for part of your stay. The congestive heart was treated with water pills (diuretics) and the bronchitis was treated with inhalers/neb treatments, steroids, and antibiotics. On day of discharge we walked you in the hallway and your lowest oxygen level was about 89/90%. You do not need oxygen at home at this time. (it has to be less than 88% to qualify for oxygen). We also performed a CT scan of the lungs and most of the water build-up in the lungs is gone. Further, we did not see pneumonia on the CT scan. You have a nodule in your lung but it has not changed since 2020. At this time we recommend - 1. Take furosemide 80 TWICE A DAY. Start this tomorrow, 03/26/22. Take your AM dose about 8am, and take your evening dose about 4-5pm. Again -- take furosemide 80mg TWICE A DAY. This is your main water pill/diuretic. 2. HOLD your lisinopril for now. Ms Bravo will tell you when it is safe to resume. 3. HOLD your spironolactone today as well as tomorrow, 03/26/22. You can resume spironolactone on Friday AM, 03/27/22. 4. For bronchitis - * dexamethasone steroid - 4mg once daily x 3 days starting tomorrow, 03/26/22; take with food * combivent inhaler - 1 puff every 6 hours as needed for cough * tessalon pearles - 100mg every 8 hours as needed for cough * you can take [id number] mucinex up to 1200mg twice daily as needed/desired for cough 5. For your recent nose irritation/bleeding - * please use mupirocin ointment twice daily x 5 days; place a small amount in both nostrils * nasal saline spray - 2 sprays each nostril as needed for dryness/irritation 6. WEIGH YOURSELF EVERY MORNING ON THE SAME SCALE. Your weight today, 03/25/22: 192.5 pounds. I would advise you check your weight when you return home today. Follow-up - see separate section Return to [facility] if - * you see oxygen levels on your home pulse oximeter of less than 90% on your finger * you have worsening shortness of breath * you have chest pain * you have fever over 100 degrees * any other concerns It was my pleasure to care for you at [facility]! Dr Martin Borrerotl Lab Support Service Tech Provider Instructions: Congestive heart failure instructions - Call 911 and go to the Emergency Room if: * You have tightness or pain in your chest that does not go away with rest or Nitroglycerin * You are very short of breath even with rest Call your doctor if any of the following symptoms or problems start or get worse: * Shortness of breath or difficulty breathing * Wake up at night short of breath * Chest pain * Cough * Swelling of your hands, fee, or legs * More fatigued or tired with your normal activity * Palpitations - sudden fast heart beats WEIGHT * Weigh yourself every morning after using the bathroom. * Use the same scale. * Wear the same amount of clothing. * Write your weight down on your chart. * Call your doctor if you gain more than 2-3 pounds in 1-2 days. This is typically the first sign of fluid build-up from congestive heart failure. Your weight today - 03/25/22 - is 192.5 pounds. Please weight yourself when you get home today. MEDICATIONS * Use this discharge instruction sheet for instructions. * Take your medications at the time your doctor ordered. * Do not skip a dose of your medicines. * If you miss a dose of medicine, take as soon as possible, but DO NOT DOUBLE A DOSE. * Read your medicine information when you get home. * Know all of the side effects of your medicine. * Call your doctor's office if you have any side effects. * Be sure all of your doctors know what medicine and herbs you take (including cold, flu, and herbal medicine). * Pain Medicine: If you do not get relief from your pain, please call your doctor for help. Take the following with you to your follow-up doctor appointments: * Weight Chart * Medication List * List of questions Do not drink excessive alcohol, beer or wine. Pending Studies at Discharge: No Stand-Alone Forms: [email or web address] Smoking Cessation Medications and DC Order Prescriptions: New benzonatate 100 mg Capsule 100 mg PO TID PRN (Reason: cough) Qty: 30 RF: 0 Combivent Respimat 20-100 mcg/actuation mist 1 puff inhalation Q6H PRN (Reason: cough) Qty: 4 RF: 0 Continued metoprolol tartrate 100 mg tablet 100 mg PO BID Qty: 180 RF: 3 atorvastatin 10 mg tablet 10 mg PO QAM Qty: 90 RF: 3 diltiazem HCl 180 mg capsule,extended release 24hr 180 mg PO QAM Qty: 90 RF: 3 (DME) Incentive Spirometer Misc See Rx Instructions .MEDSUPPLY Qty: 1 RF: 0 cyanocobalamin (vitamin B-12) 1,000 mcg tablet 1,000 mcg PO QAM RF: 0 allopurinol 100 mg tablet 100 mg PO QAM RF: 0 Eliquis 5 mg tablet 5 mg PO BID Qty: 60 RF: 5 Changed furosemide 80 mg Tablet 80 mg PO BID Qty: 60 RF: 0 Discontinued lisinopril 20 mg tablet 20 mg PO QAM RF: 0 furosemide 40 mg tablet 40 mg PO QPM RF: 0 No Action spironolactone 25 mg tablet 25 mg PO DAILY Qty: 90 RF: 3 Discharge Orders: Discharge Order (Routine); Ordered 03/25/22 Ordered By: Micah Salazar Admission Data Admit Date/Time: 03/18/22 20:49 Attending Provider: Micah Salazar Admit Provider: Juancarlos Gage Primary Care Provider: Lian Baker Other Providers: Juancarlos Gage ; Alejandrina Bravo Other Interventions: Discharge Summary Assessment (RN) Last Done: 03/25/22 14:52 Coding Level of Care Code D/C DAY MANAGEMENT >30 MINS Diagnoses Acute respiratory failure with hypoxia J96.01 Acute on chronic heart failure with preserved ejection fraction (HFpEF) I50.33 Bilateral pneumonia J18.9 Hypertension I10 Hypertension type: essential hypertension Hyperlipidemia E78.5 Hyperlipidemia type: unspecified Chronic kidney disease, stage 3a N18.31 Paroxysmal atrial fibrillation I48.0 Anticoagulant long-term use Z79.01 Abnormal chest xray R93.89 Epistaxis R04.0 Acute bronchitis J20.9 Lung nodule R91.1
== END 2022-03-25 16:10 | disposition home or self-care (01) | DRG 291 ==
LOC: ED 16:58 → SUATTDRO 20:49 → 2S 20:49 → ED 22:04